=== PATIENT | female | born 1960 | race Two or more races ===

== ENCOUNTER 2016-08-24 23:00 | Inpatient (IN) | payer OTHER ==
[~2016-08-24] VITALS: Ht 152.4 cm; Wt 66.7 kg
[2016-08-25 00:56] LABS: Basophils # (auto) 0 uL; Basophils % (auto) 0.5 % (0.0-2.0); DEFINITIVE VIEW TRANSMISSION; Eosinophils # (auto) 1.1 uL; Eosinophils % (auto) 13.5 % (0.0-7.0); Hematocrit 38.7 % (36.0-46.0); Hemoglobin 12.6 g/dL (12.2-16.2); Lymphocytes # (auto) 2.1 uL; Mean Corpuscular Hemoglobin 27.8 pg (28.0-32.0); Mean Corpuscular Hgb Conc. 32.6 g/dL (32.0-36.0); Mean Corpuscular Volume 85.3 fL (80.0-100.0); Mean Platelet Volume 8.6 fL (7.4-10.4); Monocytes # (auto) 0.6 uL; Monocytes % (auto) 6.8 % (0.0-12.0); Neutrophils # (auto) 4.3 uL; Neutrophils % (auto) 53.2 % (37.0-80.0); Platelet Count (auto) 199 10^3/uL (140-450); Red Cell Distribution Width 15.3 % (11.6-16.0); White Blood Cell 8.1 10^3/uL (4.4-10.8)
[2016-08-25 01:17] LABS: Albumin 3.6 g/dL (3.4-5.0); Amylase 301 U/L (25-115); Anion Gap 8 (5-15); Aspartate Aminotransferase 14 U/L (15-37); BUN/Creatinine Ratio 11.3; Blood Urea Nitrogen 33 mg/dL (7-18); Calcium 9.1 mg/dL (8.5-10.1); Carbon Dioxide 25 mmol/L (21-32); Chloride 107 mmol/L (98-107); GFR African American 21 mL/min; GFR Non-African American 18 mL/min; Glucose 93 mg/dL (74-106); Potassium 4.8 mmol/L (3.5-5.1); Sodium 140 mmol/L (136-145)
[2016-08-25 01:22] LABS: Alkaline Phosphatase 124 U/L (45-117); Bilirubin, Total 0.4 mg/dL (0.2-1.0); Total Protein 7.5 g/dL (6.4-8.2)
[2016-08-25 05:45] LABS: INR 0.98 (0.9-1.15); Partial Thromboplastin Time 27.3 sec (22.64-33.71); Prothrombin Time 10.6 sec (9.37-12.3)
[2016-08-25] MEDS ORDERED: SODIUM CHLORIDE 0.9% 1,000 ML IVB ONE (07:30)
[2016-08-25] MEDS ORDERED: METOCLOPRAMIDE HCL 5MG/ml INJ 2ml VIAL IV ONE (07:30)
[2016-08-25] MEDS ORDERED: NALBUPHINE HCL 10 MG/1ml INJECTION IV ONE (07:30)
[2016-08-25 07:42] LABS: Urine Bilirubin Negative (Negative); Urine Blood Negative /uL (Negative); Urine Color Yellow (Yellow); Urine Glucose Normal (Normal); Urine Ketone Negative (Negative); Urine Nitrite Negative (Negative); Urine RBC <1 /hpf (0 - 4); Urine Squamous Epithelial Cell FEW /hpf (<5); Urine Urobilinogen Normal (Negative); Urine pH 5.5 (5.0-8.0)
[2016-08-25 08:00] LABS: Magnesium 2.6 mg/dL (1.6-2.6)
[2016-08-25] MEDS ORDERED: cloNIDine HCL 0.1 MG TAB PO PRN (09:30)
[2016-08-25] MEDS ORDERED: TEMAZEPAM 15 MG CAP PO PRN (09:45)
[2016-08-25] MEDS ORDERED: DOCUSATE SOD 100 MG CAP PO PRN (09:45)
[2016-08-25] MEDS ORDERED: NITROGLYCERIN 0.4 MG SL TAB SL PRN (09:45)
[2016-08-25] MEDS ORDERED: HYDROcodone-ACET 5/325MG TAB PO PRN (09:45)
[2016-08-25] MEDS ORDERED: MORPHINE SULF INJ 2 MG/ML SYRINGE 1ML IV PRN ×2 (09:45)
[2016-08-25] MEDS ORDERED: ACETAMINOPHEN 325 MG TAB PO PRN (09:45)
[2016-08-25] MEDS ORDERED: ONDANSETRON HCL 4 MG/2 ML VIAL IV PRN (09:45)
[2016-08-25] MEDS: SODIUM CHLORIDE 0.9% 1,000 ML IV SCH ×2 (10:12→17:49)
[2016-08-25] MEDS: ENALAPRIL MALEATE 10 MG TAB PO SCH ×2 (10:20→22:07)
[2016-08-25] MEDS: LABETALOL HCL 200 MG TAB PO SCH ×2 (10:20→22:06)
[2016-08-25] MEDS: LEVOTHYROXINE SODIUM 50 MCG TAB PO SCH (10:20)
[2016-08-25] MEDS: FAMOTIDINE 20 MG TAB PO SCH ×2 (10:20→22:05)
[2016-08-25] MEDS: NIFEdipine ER 30 MG TAB PO SCH (10:21)
[2016-08-25] MEDS: MULTIPLE VITAMIN TAB PO SCH (10:21)
[2016-08-25] MEDS ORDERED: PNEUMOCOCCAL VACC POLYS 25 MCG/0.5 ML VIAL IM ONE (12:30)
[2016-08-25] MEDS ORDERED: LOVA40TA72 PO (12:38)
[2016-08-25] MEDS ORDERED: ALBU18 IN (12:38)
[2016-08-25] MEDS ORDERED: BECL0.07 IN (12:38)
[2016-08-25] MEDS ORDERED: NIFE90TA30 PO (12:38)
[2016-08-25] MEDS ORDERED: LABE200T18 PO (12:38)
[2016-08-25] MEDS ORDERED: ENAL20TA70 PO (12:38)
[2016-08-25] MEDS ORDERED: LEVO25TA6 PO (12:38)
[2016-08-25 13:00] VITALS: BP 136/83
[2016-08-25 17:00] VITALS: BP 133/84
[2016-08-25] MEDS: ALBUTEROL SULF 2.5 MG/0.5ML(0.5%) NEB SOLN NEB SCH ×2 (18:50→23:19)
[2016-08-25 20:00] VITALS: BP 139/86
[2016-08-25 22:00] VITALS: BP 139/86
[2016-08-26] VITALS (8 sets, daily range): BP systolic 114–148; BP diastolic 71–93
[2016-08-26] MEDS: SODIUM CHLORIDE 0.9% 1,000 ML IV SCH ×2 (01:26→13:31)
[2016-08-26] MEDS: ALBUTEROL SULF 2.5 MG/0.5ML(0.5%) NEB SOLN NEB SCH ×4 (01:46→17:51)
[2016-08-26 06:00] LABS: Basophils # (auto) 0.1 uL; Basophils % (auto) 0.8 % (0.0-2.0); Eosinophils # (auto) 0.7 uL; Hematocrit 32.5 % (36.0-46.0); Lymphocytes # (auto) 1.8 uL; Lymphocytes % (auto) 26.8 % (10.0-50.0); Mean Corpuscular Hemoglobin 28.5 pg (28.0-32.0); Mean Corpuscular Hgb Conc. 33.8 g/dL (32.0-36.0); Mean Corpuscular Volume 84.3 fL (80.0-100.0); Mean Platelet Volume 8.8 fL (7.4-10.4); Monocytes # (auto) 0.5 uL; Monocytes % (auto) 8.1 % (0.0-12.0); Neutrophils # (auto) 3.6 uL; Neutrophils % (auto) 54.3 % (37.0-80.0); Platelet Count (auto) 168 10^3/uL (140-450); Red Cell Distribution Width 15.4 % (11.6-16.0); White Blood Cell 6.7 10^3/uL (4.4-10.8)
[2016-08-26] MEDS: LEVOTHYROXINE SODIUM 50 MCG TAB PO SCH (06:16)
[2016-08-26 06:19] LABS: Albumin 2.8 g/dL (3.4-5.0); BUN/Creatinine Ratio 10.6; Bilirubin, Total 0.5 mg/dL (0.2-1.0); Calcium 8.6 mg/dL (8.5-10.1); Magnesium 2.3 mg/dL (1.6-2.6); Phosphorus 3.2 mg/dL (2.5-4.90); Potassium 4.4 mmol/L (3.5-5.1); Total Protein 5.8 g/dL (6.4-8.2); Uric Acid 6.7 mg/dL (2.6-6.0)
[2016-08-26] MEDS: LABETALOL HCL 200 MG TAB PO SCH ×2 (10:06→22:53)
[2016-08-26] MEDS: NIFEdipine ER 30 MG TAB PO SCH (10:07)
[2016-08-26] MEDS: FAMOTIDINE 20 MG TAB PO SCH ×2 (10:07→22:53)
[2016-08-26] MEDS: MULTIPLE VITAMIN TAB PO SCH (10:07)
[2016-08-26] MEDS: ENALAPRIL MALEATE 10 MG TAB PO SCH ×2 (10:07→22:53)
[2016-08-26] MEDS: D5W/SOD CHL 0.45% 1,000 ML IV SCH (14:26)
[2016-08-27 05:00] VITALS: BP 127/83
[2016-08-27] MEDS: ALBUTEROL SULF 2.5 MG/0.5ML(0.5%) NEB SOLN NEB SCH ×3 (06:22→11:26)
[2016-08-27 06:24] LABS: Amylase 161 U/L (25-115)
[2016-08-27] MEDS ORDERED: LEVOTHYROXINE SODIUM 100 MCG TAB PO SCH (07:00)
[2016-08-27 08:15] VITALS: BP 130/56
[2016-08-27 09:00] VITALS: BP 130/56
[2016-08-27] MEDS: D5W/SOD CHL 0.45% 1,000 ML IV SCH (10:15)
[2016-08-27] MEDS: NIFEdipine ER 30 MG TAB PO SCH (10:20)
[2016-08-27] MEDS: MULTIPLE VITAMIN TAB PO SCH (10:21)
[2016-08-27] MEDS: LABETALOL HCL 200 MG TAB PO SCH (10:21)
[2016-08-27] MEDS: FAMOTIDINE 20 MG TAB PO SCH (10:21)
[2016-08-27] MEDS: ENALAPRIL MALEATE 10 MG TAB PO SCH (10:24)
[2016-08-27 14:25] VITALS: BP 130/56
== END 2016-08-27 15:40 | disposition home or self-care (01) | DRG 282 ==
LOC: ER 23:00 → TELE-CENTR 23:01
PROVIDERS: ADMIT Internal Medicine; ATTEND Internal Medicine Pulmonary Disease
DX: K85.00 Idiopathic acute pancreatitis without necrosis or infection (principal); N17.0 Acute kidney failure with tubular necrosis; J90 Pleural effusion, not elsewhere classified; N18.4 Chronic kidney disease, stage 4 (severe); I31.3 Pericardial effusion (noninflammatory); Q61.3 Polycystic kidney, unspecified; E86.0 Dehydration; E78.5 Hyperlipidemia, unspecified; E03.9 Hypothyroidism, unspecified; K76.9 Liver disease, unspecified; I12.9 Hypertensive chronic kidney disease with stage 1 through stage 4 chronic kidney disease, or unspecified chronic kidney disease; J45.909 Unspecified asthma, uncomplicated; K59.00 Constipation, unspecified; Z23 Encounter for immunization; Z82.49 Family history of ischemic heart disease and other diseases of the circulatory system
CPT/HCPCS: 36415; 71020; 74176; 80053; 80061; 81001; 82150; 83690; 83735; 84100; 84443; 84484; 84550; 85025; 85379; 85610; 85730; 86803; 87340; 93005; 93970; 94640; 94761; 96361; 96372; 96374; J2405

== ENCOUNTER 2019-01-15 12:42 | Inpatient (IN) | payer OTHER | END 2019-01-23 18:45 | disposition home or self-care (01) | LOC: WEST WING 01-22 09:49 → ER 12:42 → TELE 12:43 → TELE-WESTW 21:04 | PROC: 0F914ZZ Drainage of Right Lobe Liver, Percutaneous Endoscopic Approach (ICD-10-PCS; principal; 2019-01-21 13:55) | DX: K85.90 Acute pancreatitis without necrosis or infection, unspecified (principal); N18.6 End stage renal disease; Q61.3 Polycystic kidney, unspecified; K81.0 Acute cholecystitis; Z99.2 Dependence on renal dialysis; E03.9 Hypothyroidism, unspecified; E78.5 Hyperlipidemia, unspecified; E86.9 Volume depletion, unspecified; K52.9 Noninfective gastroenteritis and colitis, unspecified; D64.9 Anemia, unspecified; K82.9 Disease of gallbladder, unspecified ==

== ENCOUNTER 2019-09-22 12:57 | Inpatient (IN) | payer OTHER ==
[~2019-09-22] VITALS: Ht 157.5 cm; Wt 60.2 kg
[~2019-09-22 12:57] MED LIST: ALBU18 IN; BECL0.07 IN; CALC0.5C PO; FLUT50SP; FOLI1TAB6 PO; LABE100T4 PO; LEVO50TA7 PO; LOVA40TA72 PO; NIF10C PO; SODB50I PO
[2019-09-22] MEDS ORDERED: SODIUM CHLORIDE 0.9% 500 ML IVB ONE (13:59)
[2019-09-22] MEDS ORDERED: PANTOPRAZOLE 40 MG/10 ML VIAL INJ IV STA (13:59)
[2019-09-22] MEDS ORDERED: MORPHINE SULFATE 4 MG/ML SYR/VIAL IV ONE ×2 (14:00→17:00)
[2019-09-22] MEDS ORDERED: ONDANSETRON HCL 4 MG/2 ML VIAL IV ONE ×2 (14:00→17:00)
[2019-09-22 14:12] LABS: Urine Bacteria NONE SEEN /hpf (None Seen); Urine Blood TRACE /uL (Negative); Urine Specific Gravity 1.011 (1.001-1.035); Urine WBC 1 /hpf (0 - 5)
[2019-09-22 14:21] LABS: Basophils # (auto) 0 10 ^3/uL (0-0.2); Basophils % (auto) 0.5 % (0.0-2.0); Eosinophils # (auto) 0.3 10 ^3/uL (0-0.8); Hematocrit 37.2 % (36.0-46.0); Hemoglobin 12.7 g/dL (12.2-16.2); Lymphocytes # (auto) 1.3 10 ^3/uL (0.4-5.4); Lymphocytes % (auto) 18.1 % (10.0-50.0); Mean Corpuscular Hemoglobin 31.3 pg (28.0-32.0); Mean Corpuscular Hgb Conc. 34.1 g/dL (32.0-36.0); Mean Corpuscular Volume 91.7 fL (80.0-100.0); Monocytes # (auto) 0.6 10 ^3/uL (0-1.3); Monocytes % (auto) 8.7 % (0.0-12.0); Neutrophils # (auto) 4.9 10 ^3/uL (1.6-8.6); Neutrophils % (auto) 68.7 % (37.0-80.0); Platelet Count (auto) 101 10^3/uL (140-450); Red Blood Cells 4.06 10^6/uL (4.0-5.20); Red Cell Distribution Width 14.8 % (11.8-14.3); White Blood Cell 7.2 10^3/uL (4.4-10.8)
[2019-09-22 14:38] LABS: Albumin 3.5 g/dL (3.4-5.0); Calcium 9.3 mg/dL (8.5-10.1); Potassium 3.8 mmol/L (3.5-5.1)
[2019-09-22 14:46] LABS: BUN/Creatinine Ratio 6.8; Bilirubin, Total 0.7 mg/dL (0.2-1.0); Total Protein 7.1 g/dL (6.4-8.2)
[2019-09-22] MEDS ORDERED: ONDANSETRON HCL 4 MG/2 ML VIAL IV PRN (17:30)
[2019-09-22] MEDS ORDERED: MORPHINE SULF INJ 2 MG/ML SYRINGE 1ML IV PRN ×2 (17:30)
[2019-09-22] MEDS ORDERED: NITROGLYCERIN 0.4 MG SL TAB SL PRN (17:30)
[2019-09-22 18:16] LABS: Cholesterol 216 mg/dL (< 200)
[2019-09-22 18:18] LABS: HDL Cholesterol 80 mg/dL (40-59); LDL Cholesterol 126 mg/dL (< 100); Triglycerides 84 mg/dL (< 150)
[2019-09-22] MEDS: SODIUM CHLORIDE 0.9% 1,000 ML IV SCH (18:21)
[2019-09-22] MEDS ORDERED: PROMETHAZINE HCL 25 MG/ML 1ML IV PRN (18:30)
[2019-09-22] MEDS: NIFEdipine ER 30 MG TAB PO SCH (18:37)
--- NOTE | 2019-09-22 20:40 | NUR ---
Telemetry admit from [facility]OHAN[facility] ALLENMARYJANE admitted to Telemetry unit after SBAR received. Patient oriented to Ramya Martinez RN primary RN, unit, room, bed, and unit policies regarding patient care and visiting hours. Patient now on continuous telemetry monitoring, tele box #[id number] . Patient placed on bedside oxygen at 2 liters, weighed by bedscale and encouraged to call if they need something. All questions and concerns addressed, patient verbalized understanding. Bed is in lowest locked position with bed rails up x 2 and call light is within reach of the patient.
[2019-09-22] MEDS: ATORVASTATIN 20 MG TAB PO SCH (21:36)
[2019-09-22] MEDS ORDERED: FERR1TAB17 PO (22:24)
[2019-09-22 22:44] VITALS: BP 163/75
[2019-09-22 23:20] VITALS: BP 135/74
[2019-09-23] VITALS (7 sets, daily range): BP systolic 127–160; BP diastolic 65–82
--- NOTE | 2019-09-23 00:09 | NUR ---
[facility] Hospitalist: [facility] hospitalist due to patient requesting a different medication for pain. Patient states that she does not like the way morphine makes her feel. Waiting for call back.
--- NOTE | 2019-09-23 00:36 | NUR ---
Hospitalist called back: Notified hospitalist Luis A that patient is requesting something else for pain due to patient stating she does not like the way morphine makes her feel. New orders received. To place orders.
[2019-09-23] MEDS ORDERED: KETOROLAC TROMETH 30 MG/ML 1ML VIAL IV ONE (00:45)
[2019-09-23 05:42] LABS: Basophils # (auto) 0.1 10 ^3/uL (0-0.2); Basophils % (auto) 0.8 % (0.0-2.0); Eosinophils # (auto) 0.3 10 ^3/uL (0-0.8); Eosinophils % (auto) 4.6 % (0.0-7.0); Hematocrit 33.7 % (36.0-46.0); Hemoglobin 11.4 g/dL (12.2-16.2); Lymphocytes # (auto) 1.2 10 ^3/uL (0.4-5.4); Lymphocytes % (auto) 18.9 % (10.0-50.0); Mean Corpuscular Hemoglobin 31.5 pg (28.0-32.0); Mean Corpuscular Hgb Conc. 33.7 g/dL (32.0-36.0); Mean Corpuscular Volume 93.5 fL (80.0-100.0); Monocytes # (auto) 0.6 10 ^3/uL (0-1.3); Monocytes % (auto) 9.8 % (0.0-12.0); Neutrophils # (auto) 4.2 10 ^3/uL (1.6-8.6); Neutrophils % (auto) 65.9 % (37.0-80.0); Platelet Count (auto) 79 10^3/uL (140-450); Red Blood Cells 3.61 10^6/uL (4.0-5.20); Red Cell Distribution Width 15.3 % (11.8-14.3); White Blood Cell 6.3 10^3/uL (4.4-10.8)
[2019-09-23 05:57] LABS: Calcium 8.3 mg/dL (8.5-10.1); Potassium 3.9 mmol/L (3.5-5.1)
[2019-09-23 06:06] LABS: BUN/Creatinine Ratio 7.8; Bilirubin, Total 0.6 mg/dL (0.2-1.0); Total Protein 6.2 g/dL (6.4-8.2)
[2019-09-23] MEDS ORDERED: LEVOTHYROXINE SODIUM 50 MCG TAB PO SCH (07:00)
[2019-09-23] MEDS: SODIUM CHLORIDE 0.9% 1,000 ML IV SCH (09:26)
[2019-09-23] MEDS ORDERED: SODIUM CHL 0.9% 1000 ML BAG XX ONE (09:45)
[2019-09-23 11:59] LABS: Blood Alcohol < 3.0 mg/dL (0-5); Magnesium 2.4 mg/dL (1.6-2.6); Phosphorus 6.6 mg/dL (2.5-4.90)
[2019-09-23] MEDS: LACTATED RINGER'S 1,000 ML IV SCH (14:22)
[2019-09-23] MEDS: NIFEdipine ER 30 MG TAB PO SCH (17:40)
--- NOTE | 2019-09-23 19:20 | NUR ---
Opening note Assumed care of patient. Patient alert and orientated x4. No SOB or distress noted at this time. Bed locked in lowest position and side rails up x2. POC reviewed. All questions answered. Call light within reach. Will continue to monitor.
--- NOTE | 2019-09-23 19:30 | NUR ---
Dialysis Dialysis Nurse at bedside. Will continue to monitor.
--- NOTE | 2019-09-23 21:50 | NUR ---
Dialysis done Dialysis nurse removed 1 Liter. states patient tolerated well. BP 136/75 HR 68. No distress or SOB noted on patient. Will continue to monitor.
[2019-09-23] MEDS: ATORVASTATIN 20 MG TAB PO SCH (22:20)
[2019-09-24] VITALS (8 sets, daily range): BP systolic 111–160; BP diastolic 67–81
[2019-09-24] MEDS: LACTATED RINGER'S 1,000 ML IV SCH ×2 (03:50→17:21)
[2019-09-24 05:53] LABS: Basophils # (auto) 0 10 ^3/uL (0-0.2); Basophils % (auto) 0.8 % (0.0-2.0); Eosinophils # (auto) 0.4 10 ^3/uL (0-0.8); Eosinophils % (auto) 6.1 % (0.0-7.0); Hematocrit 32.7 % (36.0-46.0); Lymphocytes # (auto) 1.2 10 ^3/uL (0.4-5.4); Lymphocytes % (auto) 19.3 % (10.0-50.0); Mean Corpuscular Hgb Conc. 33.7 g/dL (32.0-36.0); Mean Corpuscular Volume 92.1 fL (80.0-100.0); Monocytes # (auto) 0.6 10 ^3/uL (0-1.3); Monocytes % (auto) 9.2 % (0.0-12.0); Neutrophils % (auto) 64.6 % (37.0-80.0); Nucleated Red Blood Cells % 0.2 %; Platelet Count (auto) 76 10^3/uL (140-450); Red Blood Cells 3.55 10^6/uL (4.0-5.20); Red Cell Distribution Width 14.8 % (11.8-14.3); White Blood Cell 6.1 10^3/uL (4.4-10.8)
[2019-09-24] MEDS: LEVOTHYROXINE SODIUM 88 MCG TAB PO SCH (05:58)
[2019-09-24 06:13] LABS: Potassium 3.7 mmol/L (3.5-5.1)
[2019-09-24 06:22] LABS: Albumin 2.7 g/dL (3.4-5.0); BUN/Creatinine Ratio 6.6; Bilirubin, Total 0.5 mg/dL (0.2-1.0); Total Protein 5.6 g/dL (6.4-8.2)
[2019-09-24] MEDS ORDERED: ACETAMINOPHEN 325 MG TAB PO PRN (10:30)
[2019-09-24] MEDS: MEROPENEM 500MG IVPB 50 ML IV SCH ×2 (11:16→20:59)
[2019-09-24] MEDS: NIFEdipine ER 30 MG TAB PO SCH (17:38)
--- NOTE | 2019-09-24 19:10 | NUR ---
Opening note Assumed care of patient. Patient alert and orientated x4. No SOB or distress noted. Bed locked in lowest position. POC reviewed. All questions answered. Side rails up x2. Call light within reach. Will continue to monitor.
[2019-09-24] MEDS: ATORVASTATIN 20 MG TAB PO SCH (20:59)
[2019-09-24] MEDS: LABETALOL HCL 5 MG/ML 4ML SYRINGE IV PRN (21:32)
[2019-09-25] MEDS: LABETALOL HCL 5 MG/ML 4ML SYRINGE IV PRN ×2 (04:48→06:51)
[2019-09-25 04:52] VITALS: BP 153/72
[2019-09-25] MEDS: LACTATED RINGER'S 1,000 ML IV SCH (04:57)
[2019-09-25] MEDS: LEVOTHYROXINE SODIUM 88 MCG TAB PO SCH (06:03)
[2019-09-25 06:21] LABS: Potassium 3.8 mmol/L (3.5-5.1)
[2019-09-25 06:23] LABS: % Iron Saturation 21.3 % (15-50)
[2019-09-25 06:36] LABS: BUN/Creatinine Ratio 6.5; Calcium 8.8 mg/dL (8.5-10.1)
[2019-09-25] MEDS ORDERED: SODIUM CHL 0.9% 1000 ML BAG XX ONE (07:00)
--- NOTE | 2019-09-25 07:04 | NUR ---
OPENING SHIFT NOTE Assumed care of patient from data warehouse administrator RN. Patient is alert and oriented x4, no signs of distress noted, patient denies pain. She was updated on the plan of care and verbalized understanding. Patient is receiving oxygen at 2L via nasal cannula, saturation is 95%. Bed is locked, in the lowest position side rails up x2 and call light is in reach. Patient was encouraged to call for assistance as needed.
[2019-09-25 09:00] VITALS: BP 138/70
[2019-09-25] MEDS: MEROPENEM 500MG IVPB 50 ML IV SCH (09:48)
--- NOTE | 2019-09-25 10:50 | NUR ---
DIALYSIS NURSE AT BEDSIDE
--- NOTE | 2019-09-25 10:51 | NUR ---
LÓPEZ AT BEDSIDE Updated on patient status, plan of care reviewed with patient and she verbalized understanding. New orders received to advance diet. Per MD patient will be discharged today.
[2019-09-25 13:00] VITALS: BP 124/74
[2019-09-25] MEDS ORDERED: LEVO88TA4 PO (14:11)
--- NOTE | 2019-09-25 14:25 | NUR ---
DIALYSIS COMPLETE PER SYSTEM SUPPORT ANALYST 1.5L REMOVED BP 125/78 HR 81
[2019-09-25 16:49] VITALS: BP 151/82
[2019-09-25 17:00] VITALS: BP 131/66
--- NOTE | 2019-09-25 18:13 | NUR ---
DISCHARGE Discharge instructions given as ordered. Encourage to follow up with PMD as instructed. All questions and concerns addressed. Patient verbalized understanding. Medication reconciliation form completed and copy given to patient. Home medications held in Pharmacy returned to patient, IV removed with catheter intact, pressure dressing applied, Telemetry unit returned to ICU. Patient taken to vehicle via wheelchair with all personal belongings, accompanied by staff. No distress noted at time of departure.
[2019-09-26] MEDS ORDERED: PANTOPRAZOLE 40 MG TAB PO SCH (10:00)
== END 2019-09-25 18:13 | disposition home or self-care (01) | DRG 282 ==
LOC: ER 12:57 → TELE 12:58 → TELE-WESTW 20:41
PROVIDERS: ADMIT Nurse Practitioner Acute Care; ATTEND Internal Medicine
PROC: 5A1D70Z Performance of Urinary Filtration, Intermittent, Less than 6 Hours Per Day (ICD-10-PCS; principal; 2019-09-23)
DX: K85.90 Acute pancreatitis without necrosis or infection, unspecified (principal); E11.22 Type 2 diabetes mellitus with diabetic chronic kidney disease; I12.0 Hypertensive chronic kidney disease with stage 5 chronic kidney disease or end stage renal disease; K76.89 Other specified diseases of liver; N18.6 End stage renal disease; Q61.3 Polycystic kidney, unspecified; K86.2 Cyst of pancreas; D63.8 Anemia in other chronic diseases classified elsewhere; J45.909 Unspecified asthma, uncomplicated; K86.1 Other chronic pancreatitis; E03.9 Hypothyroidism, unspecified; K86.9 Disease of pancreas, unspecified; E78.5 Hyperlipidemia, unspecified; Z79.899 Other long term (current) drug therapy; Z99.2 Dependence on renal dialysis; Z82.49 Family history of ischemic heart disease and other diseases of the circulatory system
CPT/HCPCS: 36415; 74176; 76705; 80048; 80053; 80061; 80320; 81001; 83540; 83550; 83690; 83735; 84100; 84439; 84443; 85025; 86301; 90935; 93005; 93306; C9113; G0378; J1885; J2185; J2405; J3490

== ENCOUNTER 2020-07-11 18:14 | Emergency (ER) | payer OTHER ==
[~2020-07-11 18:14] MED LIST changes: -LABE100T4 PO; -LEVO50TA7 PO; +LEVO88TA4 PO; -SODB50I PO
[2020-07-11] MEDS ORDERED: MORPHINE SULFATE 4 MG/ML SYR/VIAL IV ONE (18:45)
[2020-07-11] MEDS ORDERED: ONDANSETRON HCL 4 MG/2 ML VIAL IV ONE (18:45)
[2020-07-11] MEDS ORDERED: HYDROcodone-ACET 10/325MG TAB PO ONE (19:45)
[2020-07-11 19:56] LABS: Basophils # (auto) 0 10 ^3/uL (0-0.2); Basophils % (auto) 0.2 % (0.0-2.0); Eosinophils # (auto) 0.1 10 ^3/uL (0-0.8); Eosinophils % (auto) 1.3 % (0.0-7.0); Hemoglobin 13.8 g/dL (12.2-16.2); Lymphocytes # (auto) 0.9 10 ^3/uL (0.4-5.4); Lymphocytes % (auto) 11.2 % (10.0-50.0); Mean Corpuscular Hgb Conc. 33.7 g/dL (32.0-36.0); Monocytes # (auto) 0.5 10 ^3/uL (0-1.3); Monocytes % (auto) 6.4 % (0.0-12.0); Neutrophils # (auto) 6.2 10 ^3/uL (1.6-8.6); Neutrophils % (auto) 80.9 % (37.0-80.0); Platelet Count (auto) 116 10^3/uL (140-450); Red Blood Cells 4.45 10^6/uL (4.0-5.20); White Blood Cell 7.7 10^3/uL (4.4-10.8)
[2020-07-11 20:12] LABS: Albumin 3.7 g/dL (3.4-5.0); Calcium 9.2 mg/dL (8.5-10.1); Potassium 4.2 mmol/L (3.5-5.1)
[2020-07-11 20:16] LABS: BUN/Creatinine Ratio 6.9; Bilirubin, Total 0.6 mg/dL (0.2-1.0); Total Protein 7.8 g/dL (6.4-8.2)
[2020-07-11 21:04] VITALS: BP 152/80
== END 2020-07-11 21:06 | disposition home or self-care (01) ==
LOC: ER 18:14
DX: I12.0 Hypertensive chronic kidney disease with stage 5 chronic kidney disease or end stage renal disease (principal); N18.6 End stage renal disease; R10.13 Epigastric pain; R11.2 Nausea with vomiting, unspecified; R19.7 Diarrhea, unspecified; Z79.899 Other long term (current) drug therapy; Z99.2 Dependence on renal dialysis
CPT/HCPCS: 36415; 76705; 80053; 83690; 85025; 93005; 96374; 99285; J2405

== ENCOUNTER 2020-07-13 16:41 | Inpatient (IN) | payer OTHER ==
[~2020-07-13] VITALS: Ht 162.6 cm; Wt 62.0 kg
[2020-07-13] MEDS ORDERED: ONDANSETRON HCL 4 MG/2 ML VIAL IV ONE (17:45)
[2020-07-13] MEDS ORDERED: SODIUM CHLORIDE 0.9% 1,000 ML IVB ONE (17:45)
[2020-07-13] MEDS ORDERED: MORPHINE SULFATE 4 MG/ML SYR/VIAL IV ONE (17:45)
[2020-07-13 17:56] LABS: Basophils # (auto) 0 10 ^3/uL (0-0.2); Basophils % (auto) 0.3 % (0.0-2.0); Eosinophils # (auto) 0.1 10 ^3/uL (0-0.8); Eosinophils % (auto) 1.2 % (0.0-7.0); Hematocrit 37.5 % (36.0-46.0); Hemoglobin 12.8 g/dL (12.2-16.2); Lymphocytes # (auto) 0.7 10 ^3/uL (0.4-5.4); Lymphocytes % (auto) 7.1 % (10.0-50.0); Mean Corpuscular Hemoglobin 31.3 pg (28.0-32.0); Mean Corpuscular Hgb Conc. 34.2 g/dL (32.0-36.0); Mean Corpuscular Volume 91.6 fL (80.0-100.0); Monocytes # (auto) 0.8 10 ^3/uL (0-1.3); Neutrophils # (auto) 7.6 10 ^3/uL (1.6-8.6); Neutrophils % (auto) 82.4 % (37.0-80.0); Red Cell Distribution Width 15.6 % (11.8-14.3); White Blood Cell 9.3 10^3/uL (4.4-10.8)
[2020-07-13 18:08] LABS: Alanine Aminotransferase 21 U/L (13-56); Albumin 3.6 g/dL (3.4-5.0); Anion Gap 9 (5-15); Blood Urea Nitrogen 56 mg/dL (7-18); Calcium 8.9 mg/dL (8.5-10.1); Carbon Dioxide 19 mmol/L (21-32); Chloride 108 mmol/L (98-107); Glucose 116 mg/dL (74-106); Sodium 136 mmol/L (136-145)
[2020-07-13 18:10] LABS: Urine Amorphous Crystal FEW /hpf (None Seen); Urine Bacteria FEW /hpf (None Seen); Urine Blood 1+ /uL (Negative); Urine Specific Gravity 1.013 (1.001-1.035); Urine WBC 3 /hpf (0 - 5)
[2020-07-13 18:12] LABS: Alkaline Phosphatase 161 U/L (45-117); Aspartate Aminotransferase 23 U/L (15-37); Bilirubin, Total 0.5 mg/dL (0.2-1.0); GFR African American 9 mL/min; GFR Non-African American 7 mL/min; Total Protein 7.6 g/dL (6.4-8.2)
[2020-07-13 18:25] LABS: Magnesium 2.4 mg/dL (1.6-2.6)
[2020-07-13 18:29] LABS: INR 1.01 (0.9-1.15); Partial Thromboplastin Time 29.2 sec (23.0-31.2)
[2020-07-13] MEDS ORDERED: ACETAMINOPHEN 325 MG TAB PO PRN (22:30)
[2020-07-13] MEDS: SODIUM CHLORIDE 0.9% 1,000 ML IV SCH (22:53)
[2020-07-14] VITALS (10 sets, daily range): BP systolic 108–170; BP diastolic 74–86
[2020-07-14] MEDS: MORPHINE SULFATE 4 MG/ML SYR/VIAL IV PRN ×2 (01:41→08:55)
[2020-07-14] MEDS: ONDANSETRON HCL 4 MG/2 ML VIAL IV PRN (01:43)
[2020-07-14] MEDS ORDERED: ONDA-144 PO (03:12)
[2020-07-14] MEDS ORDERED: LEVO50TA7 PO (03:12)
[2020-07-14] MEDS ORDERED: FERR1TAB17 PO (03:12)
[2020-07-14] MEDS: LEVOTHYROXINE SODIUM 88 MCG TAB PO SCH (06:47)
[2020-07-14 06:49] LABS: Basophils # (auto) 0 10 ^3/uL (0-0.2); Basophils % (auto) 0.1 % (0.0-2.0); Eosinophils # (auto) 0.1 10 ^3/uL (0-0.8); Eosinophils % (auto) 1.3 % (0.0-7.0); Hematocrit 31.8 % (36.0-46.0); Hemoglobin 10.8 g/dL (12.2-16.2); Lymphocytes # (auto) 0.7 10 ^3/uL (0.4-5.4); Lymphocytes % (auto) 10.7 % (10.0-50.0); Mean Corpuscular Hemoglobin 30.9 pg (28.0-32.0); Mean Corpuscular Volume 90.7 fL (80.0-100.0); Monocytes # (auto) 0.6 10 ^3/uL (0-1.3); Monocytes % (auto) 9.7 % (0.0-12.0); Neutrophils # (auto) 5.2 10 ^3/uL (1.6-8.6); Neutrophils % (auto) 78.2 % (37.0-80.0); Red Blood Cells 3.51 10^6/uL (4.0-5.20); Red Cell Distribution Width 15.7 % (11.8-14.3); White Blood Cell 6.7 10^3/uL (4.4-10.8)
[2020-07-14 07:07] LABS: Albumin 2.8 g/dL (3.4-5.0); Calcium 8.4 mg/dL (8.5-10.1); Potassium 4.8 mmol/L (3.5-5.1)
[2020-07-14 07:19] LABS: BUN/Creatinine Ratio 9.4; Bilirubin, Total 0.7 mg/dL (0.2-1.0); Total Protein 6.1 g/dL (6.4-8.2)
[2020-07-14] MEDS: cefTRIAXone 1GM/50ML D5W 50 ML IV SCH (08:26)
[2020-07-14] MEDS: NIFEdipine ER 30 MG TAB PO SCH (08:26)
[2020-07-14] MEDS: MORPHINE SULFATE INJECTION 2 MG/ML SYRG IV PRN (13:19)
[2020-07-14] MEDS ORDERED: ALBUTEROL SULF 2.5 MG/0.5ML(0.5%) NEB SOLN NEB PRN (15:00)
[2020-07-14] MEDS ORDERED: IPRATROPIUM BROM 0.5 MG/2.5ML INH SOL NEB PRN (15:00)
[2020-07-14] MEDS: HYDROcodone-ACET 5/325MG TAB PO PRN ×2 (15:28→22:05)
[2020-07-14] MEDS: SODIUM CHLORIDE 0.9% 1,000 ML IV SCH (17:24)
[2020-07-14] MEDS: methylPREDNISolone SOD SUCC 40 MG/ML VL IV SCH (17:24)
[2020-07-14] MEDS: ATORVASTATIN 20 MG TAB PO SCH (21:57)
[2020-07-15 05:00] VITALS: BP 132/74
[2020-07-15] MEDS: LEVOTHYROXINE SODIUM 88 MCG TAB PO SCH (06:39)
[2020-07-15] MEDS: HYDROcodone-ACET 5/325MG TAB PO PRN (06:40)
[2020-07-15 07:00] LABS: Basophils # (auto) 0 10 ^3/uL (0-0.2); Basophils % (auto) 0.1 % (0.0-2.0); Eosinophils # (auto) 0 10 ^3/uL (0-0.8); Hematocrit 33.5 % (36.0-46.0); Hemoglobin 11.6 g/dL (12.2-16.2); Lymphocytes # (auto) 0.4 10 ^3/uL (0.4-5.4); Lymphocytes % (auto) 6.3 % (10.0-50.0); Mean Corpuscular Hemoglobin 31.7 pg (28.0-32.0); Mean Corpuscular Hgb Conc. 34.6 g/dL (32.0-36.0); Mean Corpuscular Volume 91.7 fL (80.0-100.0); Monocytes # (auto) 0.2 10 ^3/uL (0-1.3); Monocytes % (auto) 4.4 % (0.0-12.0); Neutrophils % (auto) 89.2 % (37.0-80.0); Nucleated Red Blood Cells % 0.1 %; Red Blood Cells 3.65 10^6/uL (4.0-5.20); Red Cell Distribution Width 15.9 % (11.8-14.3); White Blood Cell 5.6 10^3/uL (4.4-10.8)
[2020-07-15] MEDS ORDERED: SODIUM CHL 0.9% 1000 ML BAG XX ONE (07:00)
[2020-07-15 07:33] LABS: Calcium 8.2 mg/dL (8.5-10.1)
[2020-07-15 08:13] LABS: Potassium 5.8 mmol/L (3.5-5.1)
[2020-07-15] MEDS: cefTRIAXone 1GM/50ML D5W 50 ML IV SCH (08:30)
[2020-07-15 09:00] VITALS: BP_SYST 130; BP_SYST 141; BP_DIAS 80; BP_DIAS 88
[2020-07-15] MEDS: methylPREDNISolone SOD SUCC 40 MG/ML VL IV SCH (09:30)
[2020-07-15] MEDS: NIFEdipine ER 30 MG TAB PO SCH (09:42)
[2020-07-15 13:00] VITALS: BP 116/80
[2020-07-15] MEDS: SODIUM CHLORIDE 0.9% 1,000 ML IV SCH (16:17)
[2020-07-15 17:00] VITALS: BP 147/82
[2020-07-15] MEDS ORDERED: EPOETIN ALFA-EPBX 4,000 UNIT/ML VIAL SC ONE (21:00)
[2020-07-15] MEDS: ATORVASTATIN 20 MG TAB PO SCH (21:50)
[2020-07-15 22:00] VITALS: BP 146/76
[2020-07-16 05:19] VITALS: BP 138/71
[2020-07-16] MEDS: LEVOTHYROXINE SODIUM 88 MCG TAB PO SCH (06:15)
[2020-07-16 06:22] LABS: Calcium 8.1 mg/dL (8.5-10.1)
[2020-07-16 06:56] LABS: BUN/Creatinine Ratio 9.4
[2020-07-16 06:57] LABS: Potassium 3.8 mmol/L (3.5-5.1)
[2020-07-16 08:15] VITALS: BP 151/80
[2020-07-16 09:00] VITALS: BP 154/78
[2020-07-16] MEDS: HYDROcodone-ACET 5/325MG TAB PO PRN (09:24)
[2020-07-16] MEDS: NIFEdipine ER 30 MG TAB PO SCH (11:17)
[2020-07-16] MEDS: cefTRIAXone 1GM/50ML D5W 50 ML IV SCH (11:17)
[2020-07-16] MEDS: methylPREDNISolone SOD SUCC 40 MG/ML VL IV SCH (11:17)
[2020-07-16 13:00] VITALS: BP 158/80
[2020-07-16 17:00] VITALS: BP 147/77
[2020-07-16] MEDS: MORPHINE SULFATE INJECTION 2 MG/ML SYRG IV PRN (17:59)
[2020-07-16] MEDS: ATORVASTATIN 20 MG TAB PO SCH (21:06)
[2020-07-16 22:01] VITALS: BP 148/62
[2020-07-17 04:52] VITALS: BP 149/74
[2020-07-17] MEDS: LEVOTHYROXINE SODIUM 88 MCG TAB PO SCH (06:14)
[2020-07-17] MEDS: MORPHINE SULFATE INJECTION 2 MG/ML SYRG IV PRN ×3 (06:15→19:54)
[2020-07-17 08:00] VITALS: BP 169/90
[2020-07-17 08:15] VITALS: BP 169/90
[2020-07-17] MEDS: cefTRIAXone 1GM/50ML D5W 50 ML IV SCH (09:13)
[2020-07-17] MEDS ORDERED: SODIUM CHL 0.9% 1000 ML BAG XX ONE (09:15)
[2020-07-17] MEDS: NIFEdipine ER 30 MG TAB PO SCH (10:49)
[2020-07-17 12:00] VITALS: BP 171/87
[2020-07-17 16:00] VITALS: BP 132/83
[2020-07-17] MEDS: ONDANSETRON HCL 4 MG/2 ML VIAL IV PRN (16:13)
[2020-07-17] MEDS: ATORVASTATIN 20 MG TAB PO SCH (19:53)
[2020-07-17 23:18] VITALS: BP 132/76
[2020-07-18] VITALS (7 sets, daily range): BP systolic 132–155; BP diastolic 76–89
[2020-07-18] MEDS: MORPHINE SULFATE INJECTION 2 MG/ML SYRG IV PRN ×3 (03:48→20:32)
[2020-07-18] MEDS: LEVOTHYROXINE SODIUM 88 MCG TAB PO SCH (05:41)
[2020-07-18 06:20] LABS: Basophils # (auto) 0 10 ^3/uL (0-0.2); Basophils % (auto) 0.4 % (0.0-2.0); Eosinophils # (auto) 0.1 10 ^3/uL (0-0.8); Eosinophils % (auto) 1.5 % (0.0-7.0); Hematocrit 32.2 % (36.0-46.0); Hemoglobin 11.1 g/dL (12.2-16.2); Lymphocytes # (auto) 0.9 10 ^3/uL (0.4-5.4); Lymphocytes % (auto) 15.3 % (10.0-50.0); Mean Corpuscular Hemoglobin 31.1 pg (28.0-32.0); Mean Corpuscular Hgb Conc. 34.6 g/dL (32.0-36.0); Monocytes # (auto) 0.7 10 ^3/uL (0-1.3); Monocytes % (auto) 11.7 % (0.0-12.0); Neutrophils # (auto) 4.2 10 ^3/uL (1.6-8.6); Neutrophils % (auto) 71.1 % (37.0-80.0); Nucleated Red Blood Cells % 0.1 %; Red Blood Cells 3.58 10^6/uL (4.0-5.20); Red Cell Distribution Width 15.6 % (11.8-14.3); White Blood Cell 5.9 10^3/uL (4.4-10.8)
[2020-07-18] MEDS: cefTRIAXone 1GM/50ML D5W 50 ML IV SCH (09:30)
[2020-07-18] MEDS: NIFEdipine ER 30 MG TAB PO SCH (09:48)
[2020-07-18 13:00] LABS: BUN/Creatinine Ratio 8.3; Calcium 8.6 mg/dL (8.5-10.1); Potassium 3.4 mmol/L (3.5-5.1)
[2020-07-18] MEDS: ATORVASTATIN 20 MG TAB PO SCH (20:31)
[2020-07-19 05:00] VITALS: BP 155/82
[2020-07-19] MEDS: LEVOTHYROXINE SODIUM 88 MCG TAB PO SCH (06:03)
[2020-07-19 06:30] LABS: Potassium 3.6 mmol/L (3.5-5.1)
[2020-07-19 06:36] LABS: BUN/Creatinine Ratio 7.5; Calcium 9.1 mg/dL (8.5-10.1)
[2020-07-19 08:17] VITALS: BP 151/83
[2020-07-19 08:30] VITALS: BP 151/83
[2020-07-19] MEDS: MORPHINE SULFATE INJECTION 2 MG/ML SYRG IV PRN (08:56)
[2020-07-19 12:30] VITALS: BP 128/80
[2020-07-19] MEDS ORDERED: COLCHICINE 0.6 MG CAP PO ONE (12:30)
[2020-07-19] MEDS ORDERED: PANTOPRAZOLE 40 MG TAB PO ONE (12:30)
[2020-07-19] MEDS ORDERED: NAPROXEN 500 MG TAB PO ONE (12:30)
[2020-07-19] MEDS ORDERED: cefTRIAXone 1GM/50ML D5W 50 ML IV ONE (13:00)
[2020-07-19] MEDS: NIFEdipine ER 30 MG TAB PO SCH (14:39)
[2020-07-19 16:43] VITALS: BP 106/68
[2020-07-19] MEDS: ATORVASTATIN 20 MG TAB PO SCH (21:51)
[2020-07-19] MEDS: NAPROXEN 500 MG TAB PO SCH (21:51)
[2020-07-19 21:55] VITALS: BP 122/76
[2020-07-19] MEDS ORDERED: COLCHICINE 0.6 MG CAP PO SCH (22:00)
[2020-07-20 05:16] VITALS: BP 107/65
[2020-07-20 06:07] LABS: Amylase 235 U/L (25-115); Lipase 640 U/L (73-393)
[2020-07-20] MEDS: LEVOTHYROXINE SODIUM 88 MCG TAB PO SCH (06:18)
[2020-07-20 08:00] VITALS: BP 118/67
[2020-07-20 09:00] VITALS: BP 118/67
[2020-07-20] MEDS ORDERED: cefTRIAXone 1GM/50ML D5W 50 ML IV SCH (09:00)
[2020-07-20] MEDS: NAPROXEN 500 MG TAB PO SCH (09:58)
[2020-07-20] MEDS: NIFEdipine ER 30 MG TAB PO SCH (09:58)
[2020-07-20] MEDS ORDERED: ENOXAPARIN SOD 30 MG/0.3 ML SYRINGE SC SCH (10:00)
[2020-07-20] MEDS ORDERED: PANTOPRAZOLE 40 MG TAB PO SCH (10:00)
[2020-07-20 13:00] VITALS: BP 137/72
[2020-07-20] MEDS ORDERED: CEPH-322 PO (14:21)
[2020-07-20] MEDS ORDERED: NAP500T PO (14:21)
[2020-07-20 15:12] VITALS: BP 132/72
[2020-07-20 16:46] VITALS: BP 120/67
== END 2020-07-20 18:02 | disposition home or self-care (01) | DRG 282 ==
LOC: ER 16:41 → OVERFLOW 22:33 → EAST 07-14 00:43 → WEST WING 07-14 13:22
PROVIDERS: ADMIT Nurse Practitioner; ATTEND Internal Medicine
PROC: 5A1D70Z Performance of Urinary Filtration, Intermittent, Less than 6 Hours Per Day (ICD-10-PCS; 2020-07-15)
PROC: 5A1D70Z Performance of Urinary Filtration, Intermittent, Less than 6 Hours Per Day (ICD-10-PCS; principal; 2020-07-17)
PROC: 5A1D70Z Performance of Urinary Filtration, Intermittent, Less than 6 Hours Per Day (ICD-10-PCS; 2020-07-19)
DX: K85.90 Acute pancreatitis without necrosis or infection, unspecified (principal); Q61.2 Polycystic kidney, adult type; N18.6 End stage renal disease; L03.116 Cellulitis of left lower limb; E87.5 Hyperkalemia; L03.115 Cellulitis of right lower limb; Q44.6 Cystic disease of liver; I12.0 Hypertensive chronic kidney disease with stage 5 chronic kidney disease or end stage renal disease; Z20.822 Contact with and (suspected) exposure to COVID-19; E78.5 Hyperlipidemia, unspecified; Z99.2 Dependence on renal dialysis; K86.1 Other chronic pancreatitis; K86.2 Cyst of pancreas; N39.0 Urinary tract infection, site not specified; D63.1 Anemia in chronic kidney disease; E03.9 Hypothyroidism, unspecified; J40 Bronchitis, not specified as acute or chronic; R74.8 Abnormal levels of other serum enzymes; K21.9 Gastro-esophageal reflux disease without esophagitis; Z79.899 Other long term (current) drug therapy
CPT/HCPCS: 36415; 73600; 73630; 74176; 76705; 80048; 80053; 81001; 82150; 82962; 83605; 83690; 83735; 84443; 84484; 84550; 85025; 85610; 85730; 87040; 87086; 87426; 90935; 93005; 93926; 96361; 96374; 96375; 97116; 97530; G0378; J0696; J2405

== ENCOUNTER 2021-08-02 15:40 | Inpatient (IN) | payer MEDICAID, OTHER ==
[~2021-08-02] VITALS: Ht 160 cm; Wt 63.5 kg
[~2021-08-02 15:40] MED LIST changes: +CEPH-322 PO; +FERR1TAB17 PO; +LEVO50TA7 PO; +NAP500T PO; +ONDA-144 PO
[2021-08-02 16:13] LABS: Basophils # (auto) 0.1 10 ^3/uL (0-0.2); Basophils % (auto) 0.5 % (0.0-2.0); Eosinophils # (auto) 0.1 10 ^3/uL (0-0.8); Hematocrit 38.6 % (36.0-46.0); Lymphocytes # (auto) 1.1 10 ^3/uL (0.4-5.4); Lymphocytes % (auto) 8.9 % (10.0-50.0); Mean Corpuscular Hemoglobin 29.5 pg (28.0-32.0); Mean Corpuscular Hgb Conc. 33.8 g/dL (32.0-36.0); Mean Corpuscular Volume 87.3 fL (80.0-100.0); Monocytes # (auto) 0.6 10 ^3/uL (0-1.3); Monocytes % (auto) 5.2 % (0.0-12.0); Neutrophils # (auto) 10.4 10 ^3/uL (1.6-8.6); Neutrophils % (auto) 84.4 % (37.0-80.0); Red Blood Cells 4.42 10^6/uL (4.0-5.20); Red Cell Distribution Width 15.4 % (11.8-14.3); White Blood Cell 12.3 10^3/uL (4.4-10.8)
[2021-08-02 16:41] LABS: Albumin 3.6 g/dL (3.4-5.0); Calcium 9.7 mg/dL (8.5-10.1); Potassium 3.9 mmol/L (3.5-5.1)
[2021-08-02 16:50] LABS: BUN/Creatinine Ratio 8.7; Bilirubin, Total 0.7 mg/dL (0.2-1.0); Total Protein 7.6 g/dL (6.4-8.2)
[2021-08-02] MEDS ORDERED: MORPHINE SULFATE INJECTION 2 MG/ML SYRG IV PRN (22:30)
[2021-08-02] MEDS ORDERED: cefTRIAXone 1GM/50ML D5W 50 ML IV ONE (22:30)
[2021-08-02] MEDS ORDERED: DOCUSATE SOD 100 MG CAP PO PRN (22:30)
[2021-08-02] MEDS ORDERED: NITROGLYCERIN 0.4 MG SL TAB SL PRN (22:30)
[2021-08-02] MEDS ORDERED: SOD CHL 0.45% 500 ML IV ONE (22:30)
[2021-08-03 00:40] LABS: Urine Bacteria NONE SEEN /hpf (None Seen); Urine Blood Negative /uL (Negative); Urine Specific Gravity 1.012 (1.001-1.035); Urine WBC 1 /hpf (0 - 5)
[2021-08-03 01:11] VITALS: BP 176/92
[2021-08-03] MEDS ORDERED: NIFE1TAB30 PO (02:09)
[2021-08-03] MEDS: HYDROcodone-ACET 5/325MG TAB PO PRN ×2 (02:25→22:34)
[2021-08-03] MEDS: ONDANSETRON HCL 4 MG/2 ML VIAL IV PRN (02:25)
[2021-08-03] MEDS ORDERED: GLUCAGON HYDROCHLORIDE (RDNA) 1 MG VIAL IV ONE (04:15)
[2021-08-03] MEDS ORDERED: NIFEdipine ER 30 MG TAB PO ONE (04:30)
[2021-08-03 05:00] VITALS: BP 146/76
[2021-08-03 05:59] LABS: Basophils # (auto) 0 10 ^3/uL (0-0.2); Basophils % (auto) 0.5 % (0.0-2.0); Eosinophils # (auto) 0.1 10 ^3/uL (0-0.8); Eosinophils % (auto) 2.1 % (0.0-7.0); Hematocrit 32.1 % (36.0-46.0); Lymphocytes # (auto) 1.7 10 ^3/uL (0.4-5.4); Lymphocytes % (auto) 24.1 % (10.0-50.0); Mean Corpuscular Hemoglobin 29.8 pg (28.0-32.0); Mean Corpuscular Hgb Conc. 34.2 g/dL (32.0-36.0); Mean Corpuscular Volume 87.1 fL (80.0-100.0); Monocytes # (auto) 0.5 10 ^3/uL (0-1.3); Monocytes % (auto) 6.5 % (0.0-12.0); Neutrophils # (auto) 4.8 10 ^3/uL (1.6-8.6); Neutrophils % (auto) 66.8 % (37.0-80.0); Nucleated Red Blood Cells % 0.1 %; Red Blood Cells 3.68 10^6/uL (4.0-5.20); Red Cell Distribution Width 15.4 % (11.8-14.3); White Blood Cell 7.1 10^3/uL (4.4-10.8)
[2021-08-03] MEDS ORDERED: HEPARIN SODIUM (PORCINE) 5000 UNITS/ML 1ML VIAL IV SCH (06:00)
[2021-08-03] MEDS ORDERED: HEPARIN SODIUM (PORCINE) 5000 UNITS/ML 1ML VIAL IV ONE (06:00)
[2021-08-03 06:12] LABS: Albumin 2.8 g/dL (3.4-5.0); Calcium 8.9 mg/dL (8.5-10.1); Magnesium 2.4 mg/dL (1.6-2.6); Potassium 4.1 mmol/L (3.5-5.1)
[2021-08-03 06:14] LABS: BUN/Creatinine Ratio 9.8
[2021-08-03 06:19] LABS: Bilirubin, Total 0.5 mg/dL (0.2-1.0); Phosphorus 4.7 mg/dL (2.5-4.90); Total Protein 5.8 g/dL (6.4-8.2)
[2021-08-03] MEDS: HEPARIN SODIUM (PORCINE) 5000 UNITS/ML 1ML VIAL SC SCH ×3 (06:39→22:35)
[2021-08-03] MEDS: LEVOTHYROXINE SODIUM 50 MCG TAB PO SCH (06:39)
[2021-08-03 09:00] VITALS: BP 121/76
[2021-08-03 13:00] VITALS: BP 163/81
[2021-08-03] MEDS: SOD CHL 0.45% 1,000 ML IV SCH ×2 (16:45→21:35)
[2021-08-03 17:00] VITALS: BP 160/87
[2021-08-03 22:00] VITALS: BP 165/86
[2021-08-03] MEDS: NIFEdipine ER 30 MG TAB PO SCH (22:26)
[2021-08-04 05:00] VITALS: BP_SYST 143; BP_SYST 147; BP_DIAS 77; BP_DIAS 79
[2021-08-04] MEDS: LEVOTHYROXINE SODIUM 50 MCG TAB PO SCH (06:15)
[2021-08-04] MEDS: HEPARIN SODIUM (PORCINE) 5000 UNITS/ML 1ML VIAL SC SCH ×3 (06:17→22:00)
[2021-08-04 08:00] VITALS: BP 148/73
[2021-08-04 10:24] LABS: Anion Gap 7 (5-15); BUN/Creatinine Ratio 9.6; Blood Urea Nitrogen 60 mg/dL (7-18); Calcium 8.6 mg/dL (8.5-10.1); Carbon Dioxide 24 mmol/L (21-32); Chloride 104 mmol/L (98-107); GFR African American 9 mL/min; GFR Non-African American 7 mL/min; Glucose 82 mg/dL (74-106); Potassium 4.1 mmol/L (3.5-5.1); Sodium 135 mmol/L (136-145)
[2021-08-04 10:33] LABS: Lipase 29862 U/L (73-393)
[2021-08-04 10:52] LABS: Amylase > 1302 U/L (25-115)
[2021-08-04] MEDS: ONDANSETRON HCL 4 MG/2 ML VIAL IV PRN ×2 (11:10→17:29)
[2021-08-04 12:00] VITALS: BP 147/72
[2021-08-04 16:00] VITALS: BP 143/79
[2021-08-04] MEDS: HYDROcodone-ACET 5/325MG TAB PO PRN (17:30)
[2021-08-04] MEDS: SOD CHL 0.45% 1,000 ML IV SCH (17:40)
[2021-08-04 20:00] VITALS: BP 137/66
[2021-08-04 22:00] VITALS: BP 137/66
[2021-08-04] MEDS: NIFEdipine ER 30 MG TAB PO SCH (22:14)
[2021-08-05] MEDS: ONDANSETRON HCL 4 MG/2 ML VIAL IV PRN ×2 (04:47→11:54)
[2021-08-05] MEDS: HYDROcodone-ACET 5/325MG TAB PO PRN ×2 (04:48→11:54)
[2021-08-05 05:00] VITALS: BP 158/73
[2021-08-05] MEDS: HEPARIN SODIUM (PORCINE) 5000 UNITS/ML 1ML VIAL SC SCH ×3 (06:00→21:50)
[2021-08-05] MEDS: LEVOTHYROXINE SODIUM 50 MCG TAB PO SCH (06:18)
[2021-08-05 08:00] VITALS: BP 146/69
[2021-08-05 09:00] VITALS: BP 146/69
[2021-08-05] MEDS ORDERED: LORazepam 2MG/ML-1ML VIAL IV ONE (10:00)
[2021-08-05] MEDS ORDERED: GABAPENTIN 100 MG CAP PO SCH (10:00)
[2021-08-05] MEDS ORDERED: GABAPENTIN 100 MG CAP PO ONE (11:00)
[2021-08-05 13:00] VITALS: BP 136/71
[2021-08-05 17:00] VITALS: BP 136/69
[2021-08-05] MEDS: NIFEdipine ER 30 MG TAB PO SCH (21:45)
[2021-08-05] MEDS ORDERED: HEPARIN SODIUM (PORCINE) 5000 UNITS/ML 1ML VIAL ONE (21:47)
[2021-08-05 22:00] VITALS: BP 140/73
[2021-08-06] VITALS (7 sets, daily range): BP systolic 117–139; BP diastolic 73–80
[2021-08-06] MEDS: SOD CHL 0.45% 1,000 ML IV SCH ×2 (02:13→13:33)
[2021-08-06 06:06] LABS: Albumin 2.9 g/dL (3.4-5.0); Anion Gap 7 (5-15); Blood Urea Nitrogen 30 mg/dL (7-18); Calcium 8.7 mg/dL (8.5-10.1); Carbon Dioxide 26 mmol/L (21-32); Chloride 100 mmol/L (98-107); Glucose 95 mg/dL (74-106); Potassium 4.2 mmol/L (3.5-5.1); Sodium 133 mmol/L (136-145)
[2021-08-06 06:15] LABS: Alanine Aminotransferase 17 U/L (13-56); Alkaline Phosphatase 182 U/L (45-117); Aspartate Aminotransferase 22 U/L (15-37); BUN/Creatinine Ratio 5.5; Bilirubin, Total 0.4 mg/dL (0.2-1.0); GFR African American 10 mL/min; GFR Non-African American 8 mL/min; Lipase 17564 U/L (73-393); Total Protein 6.2 g/dL (6.4-8.2); Uric Acid 4.8 mg/dL (2.6-6.0)
[2021-08-06] MEDS: LEVOTHYROXINE SODIUM 50 MCG TAB PO SCH (06:26)
[2021-08-06] MEDS: HEPARIN SODIUM (PORCINE) 5000 UNITS/ML 1ML VIAL SC SCH ×3 (06:26→22:22)
[2021-08-06 06:53] LABS: Amylase > 1302 U/L (25-115)
[2021-08-06] MEDS: HYDROcodone-ACET 5/325MG TAB PO PRN (10:12)
[2021-08-06] MEDS: GABAPENTIN 100 MG CAP PO SCH (10:13)
[2021-08-06] MEDS ORDERED: GABAPENTIN 300 MG CAP PO PRN (15:00)
[2021-08-06] MEDS: NIFEdipine ER 30 MG TAB PO SCH (22:21)
[2021-08-07 05:00] VITALS: BP 136/69
[2021-08-07] MEDS: HEPARIN SODIUM (PORCINE) 5000 UNITS/ML 1ML VIAL SC SCH ×2 (06:49→20:57)
[2021-08-07] MEDS: LEVOTHYROXINE SODIUM 50 MCG TAB PO SCH (06:57)
[2021-08-07 09:00] VITALS: BP 129/84
[2021-08-07 11:00] LABS: Basophils # (auto) 0.1 10 ^3/uL (0-0.2); Basophils % (auto) 2.3 % (0.0-2.0); Eosinophils # (auto) 0.3 10 ^3/uL (0-0.8); Eosinophils % (auto) 5.1 % (0.0-7.0); Hematocrit 36.5 % (36.0-46.0); Hemoglobin 12.4 g/dL (12.2-16.2); Lymphocytes # (auto) 0.8 10 ^3/uL (0.4-5.4); Mean Corpuscular Hemoglobin 30.1 pg (28.0-32.0); Mean Corpuscular Hgb Conc. 33.9 g/dL (32.0-36.0); Mean Corpuscular Volume 88.7 fL (80.0-100.0); Monocytes # (auto) 0.4 10 ^3/uL (0-1.3); Monocytes % (auto) 8.1 % (0.0-12.0); Neutrophils # (auto) 3.5 10 ^3/uL (1.6-8.6); Neutrophils % (auto) 69.5 % (37.0-80.0); Nucleated Red Blood Cells % 0.1 %; Red Blood Cells 4.12 10^6/uL (4.0-5.20); Red Cell Distribution Width 15.1 % (11.8-14.3)
[2021-08-07 12:07] LABS: Potassium 4.4 mmol/L (3.5-5.1)
[2021-08-07 12:17] LABS: Lipase 5814 U/L (73-393)
[2021-08-07 12:18] LABS: BUN/Creatinine Ratio 5.5; Bilirubin, Total 0.4 mg/dL (0.2-1.0); Total Protein 6.7 g/dL (6.4-8.2)
[2021-08-07 12:26] LABS: Amylase 1167 U/L (25-115)
[2021-08-07 13:00] VITALS: BP 146/72
[2021-08-07] MEDS: HYDROcodone-ACET 5/325MG TAB PO PRN ×2 (13:06→20:58)
[2021-08-07] MEDS: GABAPENTIN 100 MG CAP PO SCH (13:07)
[2021-08-07 16:44] VITALS: BP 125/68
[2021-08-07] MEDS: SOD CHL 0.45% 1,000 ML IV SCH (18:15)
[2021-08-07] MEDS: NIFEdipine ER 30 MG TAB PO SCH (20:56)
[2021-08-07 22:00] VITALS: BP 129/71
[2021-08-08 05:00] VITALS: BP 140/75
[2021-08-08 05:41] LABS: Magnesium 2.1 mg/dL (1.6-2.6); Potassium 4.9 mmol/L (3.5-5.1)
[2021-08-08 05:48] LABS: Albumin 2.5 g/dL (3.4-5.0); BUN/Creatinine Ratio 5.6; Bilirubin, Total 0.5 mg/dL (0.2-1.0); Calcium 8.5 mg/dL (8.5-10.1); Total Protein 5.7 g/dL (6.4-8.2)
[2021-08-08] MEDS: LEVOTHYROXINE SODIUM 50 MCG TAB PO SCH (06:48)
[2021-08-08] MEDS ORDERED: SODIUM CHL 0.9% 1000 ML BAG XX ONE (07:00)
[2021-08-08 08:00] VITALS: BP 123/69
[2021-08-08] MEDS ORDERED: DEXTROSE (50%) 50ML SYRG IV SCH (09:00)
[2021-08-08] MEDS: GABAPENTIN 100 MG CAP PO SCH (09:16)
[2021-08-08] MEDS: HEPARIN SODIUM (PORCINE) 5000 UNITS/ML 1ML VIAL SC SCH ×2 (09:21→23:21)
[2021-08-08] MEDS ORDERED: cefTRIAXone 1GM/50ML D5W 50 ML IV ONE (10:15)
[2021-08-08] MEDS ORDERED: KETOROLAC TROMETH 30 MG/ML 1ML VIAL IV ONE (10:15)
[2021-08-08] MEDS ORDERED: InsuLIN REG 1unit/0.01ml Soln (100units/ml) SC SCH (12:00)
[2021-08-08] MEDS ORDERED: ACCU-CHEK COMFORT CURVE STRIP VI SCH (12:00)
[2021-08-08] MEDS: SOD CHL 0.45% 1,000 ML IV SCH (14:15)
[2021-08-08] MEDS ORDERED: INSLANTI SC ×2 (14:24)
[2021-08-08 17:00] VITALS: BP 125/77
[2021-08-08] MEDS ORDERED: CLINIMIX PER PHARMACY 0 ML IV SCH (17:00)
[2021-08-08] MEDS ORDERED: CLINIMIX PER PHARMACY IV NR (20:00)
[2021-08-08 22:00] VITALS: BP 120/70
[2021-08-08] MEDS: NIFEdipine ER 30 MG TAB PO SCH (23:20)
[2021-08-09 05:00] VITALS: BP 135/69
[2021-08-09 06:24] LABS: INR 1.05 (0.9-1.15); Partial Thromboplastin Time 35.9 sec (23.6-33.0)
[2021-08-09 06:43] LABS: BUN/Creatinine Ratio 5.7; Calcium 8.5 mg/dL (8.5-10.1); Potassium 5.1 mmol/L (3.5-5.1)
[2021-08-09] MEDS: LEVOTHYROXINE SODIUM 50 MCG TAB PO SCH (06:50)
[2021-08-09] MEDS ORDERED: SODIUM CHL 0.9% 1000 ML BAG XX ONE (07:00)
[2021-08-09 08:00] VITALS: BP 140/39
[2021-08-09 09:09] VITALS: BP 140/39
[2021-08-09] MEDS: SOD CHL 0.45% 1,000 ML IV SCH ×2 (10:15→17:48)
[2021-08-09] MEDS: cefTRIAXone 1GM/50ML D5W 50 ML IV SCH (10:17)
[2021-08-09] MEDS: GABAPENTIN 100 MG CAP PO SCH (10:17)
[2021-08-09] MEDS ORDERED: LIDOCAINE VISCOUS 2% 15ML UD ONE (12:45)
[2021-08-09] MEDS ORDERED: MIDAZOLAM HCL 5 MG/ML-1ML VIAL ONE (12:45)
[2021-08-09] MEDS ORDERED: SODIUM CHLORIDE LOCK 10 ML ONE (12:45)
[2021-08-09] MEDS ORDERED: diphenhdrAMINE HCL 50 MG/1 ML VL ONE (12:46)
[2021-08-09] MEDS ORDERED: fentaNYL CITRATE 100 MCG/2 ML VL ONE (12:46)
[2021-08-09 13:00] VITALS: BP 126/68
[2021-08-09 20:00] VITALS: BP 140/78
[2021-08-09] MEDS: NIFEdipine ER 30 MG TAB PO SCH (21:59)
[2021-08-09 22:00] VITALS: BP 140/78
[2021-08-10 05:00] VITALS: BP 149/85
[2021-08-10] MEDS: LEVOTHYROXINE SODIUM 50 MCG TAB PO SCH (06:20)
[2021-08-10 09:02] VITALS: BP 122/73
[2021-08-10] MEDS: cefTRIAXone 1GM/50ML D5W 50 ML IV SCH (09:26)
[2021-08-10] MEDS: GABAPENTIN 100 MG CAP PO SCH (09:26)
[2021-08-10] MEDS: HYDROcodone-ACET 5/325MG TAB PO PRN ×2 (11:16→21:31)
[2021-08-10 13:00] VITALS: BP 142/79
[2021-08-10 17:00] VITALS: BP 134/75
[2021-08-10 20:00] VITALS: BP 140/78
[2021-08-10] MEDS: NIFEdipine ER 30 MG TAB PO SCH (21:38)
[2021-08-10 22:00] VITALS: BP_SYST 140; BP_SYST 149; BP_DIAS 78
[2021-08-11] MEDS: SOD CHL 0.45% 1,000 ML IV SCH (02:15)
[2021-08-11 05:00] VITALS: BP 142/76
[2021-08-11 05:56] LABS: Basophils # (auto) 0 10 ^3/uL (0-0.2); Basophils % (auto) 0.6 % (0.0-2.0); Eosinophils # (auto) 0.3 10 ^3/uL (0-0.8); Eosinophils % (auto) 7.3 % (0.0-7.0); Hematocrit 30.8 % (36.0-46.0); Hemoglobin 10.9 g/dL (12.2-16.2); Lymphocytes # (auto) 1.3 10 ^3/uL (0.4-5.4); Lymphocytes % (auto) 30.3 % (10.0-50.0); Mean Corpuscular Hemoglobin 30.9 pg (28.0-32.0); Mean Corpuscular Hgb Conc. 35.4 g/dL (32.0-36.0); Mean Corpuscular Volume 87.2 fL (80.0-100.0); Monocytes # (auto) 0.4 10 ^3/uL (0-1.3); Monocytes % (auto) 10.6 % (0.0-12.0); Neutrophils # (auto) 2.2 10 ^3/uL (1.6-8.6); Neutrophils % (auto) 51.2 % (37.0-80.0); Nucleated Red Blood Cells % 0.1 %; Red Blood Cells 3.53 10^6/uL (4.0-5.20); Red Cell Distribution Width 15.2 % (11.8-14.3); White Blood Cell 4.2 10^3/uL (4.4-10.8)
[2021-08-11] MEDS: LEVOTHYROXINE SODIUM 50 MCG TAB PO SCH (06:00)
[2021-08-11] MEDS ORDERED: SODIUM CHL 0.9% 1000 ML BAG XX ONE (07:00)
[2021-08-11 07:03] LABS: Potassium 5.6 mmol/L (3.5-5.1)
[2021-08-11] MEDS: cefTRIAXone 1GM/50ML D5W 50 ML IV SCH (08:07)
[2021-08-11] MEDS: ONDANSETRON HCL 4 MG/2 ML VIAL IV PRN (08:10)
[2021-08-11 09:00] VITALS: BP 140/71
[2021-08-11] MEDS: GABAPENTIN 100 MG CAP PO SCH (10:18)
[2021-08-11] MEDS ORDERED: PANT40TA2 PO (10:34)
[2021-08-11] MEDS ORDERED: SUCR1SUS10 PO (10:34)
[2021-08-11] MEDS ORDERED: HYDR-4902 PO (10:34)
[2021-08-11] MEDS ORDERED: GAB100C PO (10:34)
[2021-08-11 13:00] VITALS: BP 124/72
[2021-08-11 17:00] VITALS: BP 154/78
[2021-08-11 18:07] VITALS: BP 149/78
[2021-08-11] MEDS ORDERED: EPOETIN ALFA-EPBX 10,000 UNIT/1ML VIAL SC ONE (21:00)
== END 2021-08-11 19:05 | disposition home or self-care (01) | DRG 282 ==
LOC: EDBD → ER 15:40 → OVERFLOW 22:24 → CENTRAL 23:16
PROVIDERS: ADMIT Internal Medicine; ATTEND Internal Medicine
PROC: 5A1D70Z Performance of Urinary Filtration, Intermittent, Less than 6 Hours Per Day (ICD-10-PCS; principal; 2021-08-04)
PROC: 0DB98ZX Excision of Duodenum, Via Natural or Artificial Opening Endoscopic, Diagnostic (ICD-10-PCS; 2021-08-09)
PROC: 5A1D70Z Performance of Urinary Filtration, Intermittent, Less than 6 Hours Per Day (ICD-10-PCS; 2021-08-09)
PROC: 0DB68ZX Excision of Stomach, Via Natural or Artificial Opening Endoscopic, Diagnostic (ICD-10-PCS; 2021-08-09)
DX: K85.90 Acute pancreatitis without necrosis or infection, unspecified (principal); N18.6 End stage renal disease; N25.81 Secondary hyperparathyroidism of renal origin; K22.10 Ulcer of esophagus without bleeding; K83.8 Other specified diseases of biliary tract; E11.22 Type 2 diabetes mellitus with diabetic chronic kidney disease; E11.40 Type 2 diabetes mellitus with diabetic neuropathy, unspecified; Q44.6 Cystic disease of liver; Q61.2 Polycystic kidney, adult type; D64.9 Anemia, unspecified; D25.9 Leiomyoma of uterus, unspecified; K76.89 Other specified diseases of liver; E03.9 Hypothyroidism, unspecified; E78.00 Pure hypercholesterolemia, unspecified; Z20.822 Contact with and (suspected) exposure to COVID-19; K25.9 Gastric ulcer, unspecified as acute or chronic, without hemorrhage or perforation; K29.60 Other gastritis without bleeding; K44.9 Diaphragmatic hernia without obstruction or gangrene; Z82.49 Family history of ischemic heart disease and other diseases of the circulatory system; Z90.49 Acquired absence of other specified parts of digestive tract
CPT/HCPCS: 36415; 43239; 71045; 74176; 74181; 80048; 80053; 81001; 82150; 83605; 83690; 83735; 84100; 84132; 84478; 84484; 84550; 85025; 85610; 85730; 86301; 86850; 86900; 86901; 87040; 90935; 93005; 93306; 93970; 96365; G0378; J0696; J1885; J2250; J2405

== ENCOUNTER 2021-08-13 12:23 | Inpatient (IN) | payer MEDICAID ==
[~2021-08-13] VITALS: Ht 167.6 cm; Wt 62.4 kg
[~2021-08-13 12:23] MED LIST changes: -CALC0.5C PO; -CEPH-322 PO; +GAB100C PO; +HYDR-4902 PO; -LEVO88TA4 PO; -NAP500T PO; -NIF10C PO; +NIFE1TAB30 PO; -ONDA-144 PO; +PANT40TA2 PO; +SUCR1SUS10 PO
[2021-08-13] MEDS ORDERED: diphenhdrAMINE HCL 50 MG/1 ML VL IV ONE (13:15)
[2021-08-13] MEDS ORDERED: methylPREDNISolone SOD SUCC 125 MG/2 ML VL IV ONE (13:15)
[2021-08-13] MEDS ORDERED: ONDANSETRON HCL 4 MG/2 ML VIAL IV ONE (13:15)
[2021-08-13 13:31] LABS: Basophils # (auto) 0 10 ^3/uL (0-0.2); Basophils % (auto) 0.2 % (0.0-2.0); Eosinophils # (auto) 0 10 ^3/uL (0-0.8); Eosinophils % (auto) 0.8 % (0.0-7.0); Hematocrit 34.1 % (36.0-46.0); Hemoglobin 11.7 g/dL (12.2-16.2); Lymphocytes # (auto) 0.7 10 ^3/uL (0.4-5.4); Lymphocytes % (auto) 12.1 % (10.0-50.0); Mean Corpuscular Hemoglobin 29.9 pg (28.0-32.0); Mean Corpuscular Hgb Conc. 34.4 g/dL (32.0-36.0); Mean Corpuscular Volume 87.1 fL (80.0-100.0); Monocytes # (auto) 0.3 10 ^3/uL (0-1.3); Monocytes % (auto) 5.4 % (0.0-12.0); Neutrophils # (auto) 4.5 10 ^3/uL (1.6-8.6); Neutrophils % (auto) 81.5 % (37.0-80.0); Nucleated Red Blood Cells % 0.2 %; Red Blood Cells 3.92 10^6/uL (4.0-5.20); Red Cell Distribution Width 15.4 % (11.8-14.3); White Blood Cell 5.5 10^3/uL (4.4-10.8)
[2021-08-13 13:50] LABS: Albumin 3.3 g/dL (3.4-5.0); BUN/Creatinine Ratio 7.4; Calcium 8.9 mg/dL (8.5-10.1); Potassium 4.1 mmol/L (3.5-5.1)
[2021-08-13 13:52] LABS: Bilirubin, Total 0.4 mg/dL (0.2-1.0); Total Protein 6.4 g/dL (6.4-8.2)
[2021-08-13 13:55] LABS: Amylase 426 U/L (25-115)
[2021-08-13 13:57] LABS: Lipase 2373 U/L (73-393)
[2021-08-13] MEDS ORDERED: ONDANSETRON HCL 4 MG/2 ML VIAL IV PRN (15:30)
[2021-08-13] MEDS ORDERED: ACETAMINOPHEN 325 MG TAB PO PRN (15:30)
[2021-08-13] MEDS ORDERED: HYDROcodone-ACET 5/325MG TAB PO PRN (15:30)
[2021-08-13] MEDS ORDERED: DOCUSATE SOD 100 MG CAP PO PRN (15:30)
[2021-08-13] MEDS ORDERED: TEMAZEPAM 15 MG CAP PO PRN (15:30)
[2021-08-13] MEDS ORDERED: MORPHINE SULFATE INJECTION 2 MG/ML SYRG IV PRN ×2 (15:30)
[2021-08-13] MEDS ORDERED: ALUM & MAG HYDROX-SIMETH LIQ(MAALOX) 30 ML PO PRN (15:30)
[2021-08-13] MEDS ORDERED: NITROGLYCERIN 0.4 MG SL TAB SL PRN (15:30)
[2021-08-13] MEDS: methylPREDNISolone SOD SUCC 40 MG/ML VL IV SCH ×2 (16:07→23:23)
[2021-08-13] MEDS ORDERED: FAMOTIDINE (10MG/ML) 2ML VL IV SCH (22:00)
[2021-08-13 22:10] VITALS: BP 133/70
[2021-08-13 23:21] VITALS: BP 133/70
[2021-08-14 05:09] VITALS: BP 145/70
[2021-08-14 05:11] LABS: Basophils # (auto) 0 10 ^3/uL (0-0.2); Basophils % (auto) 0.2 % (0.0-2.0); Eosinophils # (auto) 0 10 ^3/uL (0-0.8); Hematocrit 31.7 % (36.0-46.0); Hemoglobin 11.2 g/dL (12.2-16.2); Lymphocytes # (auto) 0.4 10 ^3/uL (0.4-5.4); Lymphocytes % (auto) 9.9 % (10.0-50.0); Mean Corpuscular Hemoglobin 30.7 pg (28.0-32.0); Mean Corpuscular Hgb Conc. 35.2 g/dL (32.0-36.0); Mean Corpuscular Volume 87.4 fL (80.0-100.0); Monocytes # (auto) 0.1 10 ^3/uL (0-1.3); Monocytes % (auto) 1.8 % (0.0-12.0); Neutrophils # (auto) 3.4 10 ^3/uL (1.6-8.6); Neutrophils % (auto) 88.1 % (37.0-80.0); Nucleated Red Blood Cells % 0.1 %; Red Blood Cells 3.63 10^6/uL (4.0-5.20); Red Cell Distribution Width 15.1 % (11.8-14.3); White Blood Cell 3.8 10^3/uL (4.4-10.8)
[2021-08-14 05:31] LABS: Calcium 9.2 mg/dL (8.5-10.1); Potassium 5.3 mmol/L (3.5-5.1)
[2021-08-14 05:37] LABS: Albumin 2.9 g/dL (3.4-5.0); BUN/Creatinine Ratio 8.2; Total Protein 6.1 g/dL (6.4-8.2)
[2021-08-14 05:44] LABS: Bilirubin, Total 0.3 mg/dL (0.2-1.0)
[2021-08-14] MEDS ORDERED: SODIUM CHL 0.9% 1000 ML BAG XX ONE (07:00)
[2021-08-14] MEDS: methylPREDNISolone SOD SUCC 40 MG/ML VL IV SCH ×3 (07:06→23:30)
[2021-08-14 09:00] VITALS: BP 142/80
[2021-08-14] MEDS: diphenhdrAMINE HCL 25 MG CAP PO SCH (09:15)
[2021-08-14 13:00] VITALS: BP 143/72
[2021-08-14 17:00] VITALS: BP 144/73
[2021-08-14] MEDS ORDERED: diphenhdrAMINE HCL 25 MG CAP PO ONE (22:30)
[2021-08-15 05:00] VITALS: BP 164/83
[2021-08-15 06:26] LABS: Basophils # (auto) 0 10 ^3/uL (0-0.2); Basophils % (auto) 0.1 % (0.0-2.0); Eosinophils # (auto) 0 10 ^3/uL (0-0.8); Hematocrit 30.5 % (36.0-46.0); Hemoglobin 10.6 g/dL (12.2-16.2); Lymphocytes # (auto) 0.5 10 ^3/uL (0.4-5.4); Lymphocytes % (auto) 6.5 % (10.0-50.0); Mean Corpuscular Hemoglobin 30.3 pg (28.0-32.0); Mean Corpuscular Hgb Conc. 34.7 g/dL (32.0-36.0); Mean Corpuscular Volume 87.4 fL (80.0-100.0); Monocytes # (auto) 0.2 10 ^3/uL (0-1.3); Monocytes % (auto) 2.7 % (0.0-12.0); Neutrophils # (auto) 6.3 10 ^3/uL (1.6-8.6); Neutrophils % (auto) 90.7 % (37.0-80.0); Nucleated Red Blood Cells % 0.1 %; Red Blood Cells 3.49 10^6/uL (4.0-5.20); Red Cell Distribution Width 15.2 % (11.8-14.3)
[2021-08-15] MEDS: methylPREDNISolone SOD SUCC 40 MG/ML VL IV SCH ×2 (06:32→20:00)
[2021-08-15 06:48] LABS: Albumin 2.9 g/dL (3.4-5.0); BUN/Creatinine Ratio 9.8; Calcium 9.2 mg/dL (8.5-10.1); Potassium 5.3 mmol/L (3.5-5.1)
[2021-08-15 06:52] LABS: Bilirubin, Total 0.3 mg/dL (0.2-1.0); Total Protein 6.4 g/dL (6.4-8.2)
[2021-08-15 09:00] VITALS: BP 144/74
[2021-08-15] MEDS: diphenhdrAMINE HCL 25 MG CAP PO SCH (09:20)
[2021-08-15 13:00] VITALS: BP 106/68
[2021-08-15] MEDS ORDERED: HYDR-4924 PO (13:13)
[2021-08-15] MEDS ORDERED: PRED20TA2 PO (13:13)
[2021-08-15 16:58] VITALS: BP 145/72
== END 2021-08-15 20:07 | disposition home or self-care (01) | DRG 385 ==
LOC: EDBD → ER 12:23 → OVERFLOW 15:30 → CENTRAL 21:15
PROVIDERS: ADMIT Family Medicine; ATTEND Internal Medicine
PROC: 5A1D70Z Performance of Urinary Filtration, Intermittent, Less than 6 Hours Per Day (ICD-10-PCS; principal; 2021-08-15)
DX: L29.8 Other pruritus (principal); K85.90 Acute pancreatitis without necrosis or infection, unspecified; D69.6 Thrombocytopenia, unspecified; I12.0 Hypertensive chronic kidney disease with stage 5 chronic kidney disease or end stage renal disease; N18.6 End stage renal disease; D63.1 Anemia in chronic kidney disease; K86.2 Cyst of pancreas; E11.22 Type 2 diabetes mellitus with diabetic chronic kidney disease; L23.9 Allergic contact dermatitis, unspecified cause; N25.81 Secondary hyperparathyroidism of renal origin; K86.1 Other chronic pancreatitis; Z20.822 Contact with and (suspected) exposure to COVID-19; J98.11 Atelectasis; Z82.49 Family history of ischemic heart disease and other diseases of the circulatory system; Z68.22 Body mass index [BMI] 22.0-22.9, adult
CPT/HCPCS: 36415; 71045; 76705; 80053; 82150; 83690; 83735; 84484; 85025; 85652; 86038; 86141; 87081; 90935; 93005; 96374; 96375; G0378; J2405; J3490

== ENCOUNTER 2021-08-19 19:26 | Inpatient (IN) | payer MEDICAID ==
[~2021-08-19] VITALS: Ht 149.9 cm; Wt 63.7 kg
[~2021-08-19 19:26] MED LIST changes: +HYDR-4924 PO; +PRED20TA2 PO
[2021-08-19] MEDS ORDERED: ONDANSETRON HCL 4 MG/2 ML VIAL IV ONE (20:30)
[2021-08-19] MEDS ORDERED: FAMOTIDINE (10MG/ML) 2ML VL IV ONE (20:30)
[2021-08-19] MEDS ORDERED: LIDOCAINE VISCOUS 2% 15ML UD PO ONE (20:30)
[2021-08-19] MEDS ORDERED: ALUM & MAG HYDROX-SIMETH LIQ(MAALOX) 30 ML PO ONE (20:30)
[2021-08-19 21:02] LABS: Basophils # (auto) 0 10 ^3/uL (0-0.2); Basophils % (auto) 0.1 % (0.0-2.0); Eosinophils # (auto) 0.4 10 ^3/uL (0-0.8); Eosinophils % (auto) 5.4 % (0.0-7.0); Hemoglobin 10.3 g/dL (12.2-16.2); Lymphocytes # (auto) 1.7 10 ^3/uL (0.4-5.4); Lymphocytes % (auto) 24.8 % (10.0-50.0); Mean Corpuscular Hgb Conc. 35.4 g/dL (32.0-36.0); Mean Corpuscular Volume 87.6 fL (80.0-100.0); Monocytes # (auto) 0.7 10 ^3/uL (0-1.3); Monocytes % (auto) 10.7 % (0.0-12.0); Neutrophils # (auto) 4.1 10 ^3/uL (1.6-8.6); Nucleated Red Blood Cells % 0.1 %; Red Blood Cells 3.31 10^6/uL (4.0-5.20); Red Cell Distribution Width 15.2 % (11.8-14.3); White Blood Cell 6.9 10^3/uL (4.4-10.8)
[2021-08-19 21:23] LABS: Calcium 8.6 mg/dL (8.5-10.1); Magnesium 2.2 mg/dL (1.6-2.6); Potassium 4.3 mmol/L (3.5-5.1)
[2021-08-19 21:31] LABS: BUN/Creatinine Ratio 11.2; Bilirubin, Total 0.5 mg/dL (0.2-1.0); Total Protein 6.1 g/dL (6.4-8.2)
[2021-08-19] MEDS ORDERED: SODIUM CHLORIDE 0.9% 500 ML IV ONE (22:45)
[2021-08-19] MEDS ORDERED: HYDROcodone-ACET 5/325MG TAB PO ONE (22:45)
[2021-08-19] MEDS ORDERED: METOCLOPRAMIDE HCL 5MG/ml INJ 2ml VIAL IV ONE (22:45)
[2021-08-19] MEDS ORDERED: FLUTICASONE PROP NASAL SPR 0.05 % (50MCG) 16GM PRN (23:45)
[2021-08-19] MEDS ORDERED: [UNRECOGNIZED DRUG - OTHER] IN SCH (23:45)
[2021-08-19] MEDS ORDERED: ACETAMINOPHEN 325 MG TAB PO PRN (23:45)
[2021-08-19] MEDS ORDERED: HYDROcodone-ACET 5/325MG TAB PO PRN ×2 (23:45)
[2021-08-19] MEDS ORDERED: HYDROmorphone HCL 2 MG/ML VL IV PRN (23:45)
[2021-08-19] MEDS ORDERED: ALBUTEROL SULF 2.5 MG/0.5ML(0.5%) NEB SOLN NEB ONE (23:45)
[2021-08-19] MEDS ORDERED: ONDANSETRON HCL 4 MG/2 ML VIAL IV PRN (23:45)
[2021-08-19] MEDS ORDERED: DOCUSATE SOD 100 MG CAP PO PRN (23:45)
[2021-08-20] VITALS (8 sets, daily range): BP systolic 123–152; BP diastolic 62–74
[2021-08-20] MEDS ORDERED: ALBUTEROL SULF 2.5 MG/0.5ML(0.5%) NEB SOLN ONE
[2021-08-20] MEDS: PANTOPRAZOLE 40 MG TAB PO SCH ×3 (00:23→21:59)
[2021-08-20] MEDS ORDERED: LISI-716 PO (02:15)
[2021-08-20] MEDS: SUCRALFATE 1 GM/10 ML ORAL SUSP PO SCH ×4 (06:15→21:57)
[2021-08-20] MEDS: LEVOTHYROXINE SODIUM 50 MCG TAB PO SCH (06:16)
[2021-08-20] MEDS: GABAPENTIN 100 MG CAP PO SCH (10:56)
[2021-08-20] MEDS: FOLIC ACID 1 MG TAB PO SCH (10:56)
[2021-08-20] MEDS: SODIUM CHLORIDE 0.9% 1,000 ML IV SCH ×2 (13:30→20:10)
[2021-08-20] MEDS: FERRIC CITRATE 420 MG PO SCH ×2 (14:00→22:00)
[2021-08-20] MEDS: ATORVASTATIN 20 MG TAB PO SCH (21:58)
[2021-08-20] MEDS: NIFEdipine ER 30 MG TAB PO SCH (22:00)
[2021-08-21] MEDS: FERRIC CITRATE 420 MG PO SCH (02:58)
[2021-08-21] MEDS: SODIUM CHLORIDE 0.9% 1,000 ML IV SCH ×2 (03:16→11:00)
[2021-08-21 04:56] VITALS: BP 141/58
[2021-08-21] MEDS: SUCRALFATE 1 GM/10 ML ORAL SUSP PO SCH ×4 (06:20→21:34)
[2021-08-21] MEDS: LEVOTHYROXINE SODIUM 50 MCG TAB PO SCH (06:29)
[2021-08-21 08:00] VITALS: BP 145/68
[2021-08-21] MEDS: GABAPENTIN 100 MG CAP PO SCH (11:02)
[2021-08-21] MEDS: FOLIC ACID 1 MG TAB PO SCH (11:02)
[2021-08-21] MEDS: PANTOPRAZOLE 40 MG TAB PO SCH ×2 (11:02→21:36)
[2021-08-21 12:00] VITALS: BP 139/64
[2021-08-21] MEDS ORDERED: SODIUM CHLORIDE 0.9% 1,000 ML IV SCH (12:15)
[2021-08-21] MEDS ORDERED: SODIUM CHL 0.9% 1000 ML BAG XX ONE (14:15)
[2021-08-21] MEDS: FERRIC CITRATE 210 MG PO SCH ×2 (14:17→21:38)
[2021-08-21 16:00] VITALS: BP 137/64
[2021-08-21 17:32] LABS: Hematocrit 37.9 % (36.0-46.0); Hemoglobin 12.6 g/dL (12.2-16.2)
[2021-08-21] MEDS ORDERED: EPOETIN ALFA-EPBX 10,000 UNIT/1ML VIAL SC ONE (21:00)
[2021-08-21] MEDS: NIFEdipine ER 30 MG TAB PO SCH (21:35)
[2021-08-21] MEDS: ATORVASTATIN 20 MG TAB PO SCH (21:36)
[2021-08-21 21:57] VITALS: BP 162/70
== END 2021-08-21 21:55 | disposition short-term general hospital (02) | DRG 282 ==
LOC: ER 19:26 → OVERFLOW 23:40 → EAST 08-20 01:09
PROVIDERS: ADMIT Internal Medicine; ATTEND Internal Medicine
PROC: 5A1D70Z Performance of Urinary Filtration, Intermittent, Less than 6 Hours Per Day (ICD-10-PCS; principal; 2021-08-21)
DX: K85.90 Acute pancreatitis without necrosis or infection, unspecified (principal); I12.0 Hypertensive chronic kidney disease with stage 5 chronic kidney disease or end stage renal disease; E11.22 Type 2 diabetes mellitus with diabetic chronic kidney disease; N18.6 End stage renal disease; K86.1 Other chronic pancreatitis; K21.9 Gastro-esophageal reflux disease without esophagitis; Z20.822 Contact with and (suspected) exposure to COVID-19; E78.5 Hyperlipidemia, unspecified; E03.9 Hypothyroidism, unspecified; Z82.49 Family history of ischemic heart disease and other diseases of the circulatory system; Z99.2 Dependence on renal dialysis; Z90.49 Acquired absence of other specified parts of digestive tract
CPT/HCPCS: 36415; 71045; 80053; 82962; 83690; 83735; 84484; 85014; 85018; 85025; 87081; 90935; 93005; 96361; 96374; 96375; G0378; J2405; J3490

== ENCOUNTER 2022-04-08 07:31 | Inpatient (IN) | payer MEDICAID ==
[~2022-04-08] VITALS: Ht 152.4 cm; Wt 60.5 kg
[~2022-04-08 07:31] MED LIST changes: +LISI-716 PO
[2022-04-08 08:36] LABS: Basophils # (auto) 0 10 ^3/uL (0-0.2); Basophils % (auto) 0.3 % (0.0-2.0); Eosinophils # (auto) 0.1 10 ^3/uL (0-0.8); Eosinophils % (auto) 0.9 % (0.0-7.0); Hematocrit 43.2 % (36.0-46.0); Hemoglobin 14.1 g/dL (12.2-16.2); Lymphocytes # (auto) 0.8 10 ^3/uL (0.4-5.4); Lymphocytes % (auto) 9.5 % (10.0-50.0); Mean Corpuscular Hemoglobin 30.1 pg (28.0-32.0); Mean Corpuscular Hgb Conc. 32.5 g/dL (32.0-36.0); Mean Corpuscular Volume 92.5 fL (80.0-100.0); Monocytes # (auto) 0.4 10 ^3/uL (0-1.3); Monocytes % (auto) 4.3 % (0.0-12.0); Neutrophils # (auto) 7.6 10 ^3/uL (1.6-8.6); Red Blood Cells 4.68 10^6/uL (4.0-5.20); Red Cell Distribution Width 16.2 % (11.8-14.3); White Blood Cell 8.9 10^3/uL (4.4-10.8)
[2022-04-08 08:38] LABS: Urine Bacteria FEW /hpf (None Seen); Urine Blood TRACE /uL (Negative); Urine WBC 1 /hpf (0 - 5)
[2022-04-08 09:02] LABS: Albumin 3.8 g/dL (3.4-5.0); BUN/Creatinine Ratio 10.7; Bilirubin, Total 0.8 mg/dL (0.2-1.0); Calcium 9.8 mg/dL (8.5-10.1); Potassium 4.7 mmol/L (3.5-5.1); Total Protein 6.9 g/dL (6.4-8.2)
[2022-04-08] MEDS ORDERED: MORPHINE SULFATE INJ 2 MG/ml SYRG IV PRN ×2 (15:15)
[2022-04-08] MEDS ORDERED: NITROGLYCERIN 0.4 MG SL TAB SL PRN (15:15)
[2022-04-08] MEDS ORDERED: ONDANSETRON HCL 4 MG/2 ML VIAL IV PRN (15:15)
[2022-04-08] MEDS ORDERED: ACETAMINOPHEN 325 MG TAB PO PRN (15:15)
[2022-04-08] MEDS ORDERED: HYDROcodone-ACET 5/325MG TAB PO PRN (15:15)
[2022-04-08] MEDS ORDERED: hydrALAZINE HCL 20 MG/ML VL IV PRN (15:30)
[2022-04-08] MEDS ORDERED: SODIUM CHLORIDE 0.9% 1,000 ML IV ONE (15:30)
[2022-04-08] MEDS ORDERED: DEXTROSE (50%) 50ML SYRG IV PRN (15:45)
[2022-04-08] MEDS ORDERED: metroNIDAZOLE 500MG/100ML 100 ML IV ONE (15:45)
[2022-04-08] MEDS ORDERED: cefTRIAXone 1GM/50ML D5W 50 ML IV ONE (15:45)
[2022-04-08 17:38] LABS: Cholesterol 196 mg/dL (< 200); HDL Cholesterol 95 mg/dL (40-59); LDL Cholesterol 90 mg/dL (< 100); Triglycerides 80 mg/dL (< 150)
[2022-04-09] MEDS ORDERED: HEPARIN SODIUM (PORCINE) 5000 UNITS/ML 1ML VIAL ONE (02:41)
[2022-04-09] MEDS: PANTOPRAZOLE 40 MG TAB PO SCH ×2 (03:03→15:03)
[2022-04-09] MEDS: SUCRALFATE 1 GM/10 ML ORAL SUSP PO SCH ×6 (03:05→21:18)
[2022-04-09] MEDS: LISINOPRIL 10 MG TAB PO SCH ×2 (03:06→21:20)
[2022-04-09 04:49] LABS: Basophils # (auto) 0.1 10 ^3/uL (0-0.2); Basophils % (auto) 0.9 % (0.0-2.0); Eosinophils # (auto) 0.4 10 ^3/uL (0-0.8); Eosinophils % (auto) 4.6 % (0.0-7.0); Hematocrit 42.1 % (36.0-46.0); Hemoglobin 14.2 g/dL (12.2-16.2); Lymphocytes # (auto) 2.2 10 ^3/uL (0.4-5.4); Lymphocytes % (auto) 29.2 % (10.0-50.0); Mean Corpuscular Hemoglobin 30.8 pg (28.0-32.0); Mean Corpuscular Hgb Conc. 33.8 g/dL (32.0-36.0); Mean Corpuscular Volume 91.1 fL (80.0-100.0); Monocytes # (auto) 0.6 10 ^3/uL (0-1.3); Monocytes % (auto) 7.3 % (0.0-12.0); Neutrophils # (auto) 4.5 10 ^3/uL (1.6-8.6); Nucleated Red Blood Cells % 0.1 %; Red Blood Cells 4.62 10^6/uL (4.0-5.20); Red Cell Distribution Width 16.1 % (11.8-14.3); White Blood Cell 7.7 10^3/uL (4.4-10.8)
[2022-04-09] MEDS: LEVOTHYROXINE SODIUM 50 MCG TAB PO SCH (06:18)
[2022-04-09] MEDS: metroNIDAZOLE 500MG/100ML 100 ML IV SCH ×4 (06:54→21:17)
[2022-04-09] MEDS: InsuLIN REG 1unit/0.01ml Soln (100units/ml) SC SCH ×6 (06:55→21:33)
[2022-04-09] MEDS: ACCU-CHEK COMFORT CURVE STRIP VI SCH ×6 (06:55→21:20)
[2022-04-09] MEDS ORDERED: SODIUM CHL 0.9% 1000 ML BAG XX ONE (07:00)
[2022-04-09] MEDS ORDERED: GABAPENTIN 100 MG CAP PO SCH (10:00)
[2022-04-09] MEDS ORDERED: ENOXAPARIN SOD 40 MG/0.4 ML SYRINGE SC SCH (10:00)
[2022-04-09] MEDS: HEPARIN SODIUM (PORCINE) 5000 UNITS/ML 1ML VIAL SC SCH ×3 (11:21→21:43)
[2022-04-09] MEDS: NIFEdipine ER 30 MG TAB PO SCH ×2 (11:22→21:19)
[2022-04-09 12:19] VITALS: BP 160/76
[2022-04-09 13:22] VITALS: BP 132/66
[2022-04-09] MEDS: cefTRIAXone 1GM/50ML D5W 50 ML IV SCH (14:43)
[2022-04-09] MEDS: GABAPENTIN 100 MG CAP PO SCH (21:18)
[2022-04-09] MEDS ORDERED: MELATONIN 5 MG TAB PO ONE (22:00)
[2022-04-10 05:00] VITALS: BP 135/71
[2022-04-10] MEDS: metroNIDAZOLE 500MG/100ML 100 ML IV SCH ×3 (06:26→22:21)
[2022-04-10] MEDS: GABAPENTIN 100 MG CAP PO SCH ×3 (06:26→22:19)
[2022-04-10] MEDS: SUCRALFATE 1 GM/10 ML ORAL SUSP PO SCH ×4 (06:26→22:21)
[2022-04-10] MEDS: ACCU-CHEK COMFORT CURVE STRIP VI SCH ×4 (06:27→22:09)
[2022-04-10] MEDS: LEVOTHYROXINE SODIUM 50 MCG TAB PO SCH (06:27)
[2022-04-10] MEDS: InsuLIN REG 1unit/0.01ml Soln (100units/ml) SC SCH ×4 (06:39→22:18)
[2022-04-10 07:52] LABS: BUN/Creatinine Ratio 11.1; Potassium 5.3 mmol/L (3.5-5.1)
[2022-04-10 09:11] VITALS: BP 128/63
[2022-04-10] MEDS: PANTOPRAZOLE 40 MG TAB PO SCH (09:12)
[2022-04-10] MEDS: cefTRIAXone 1GM/50ML D5W 50 ML IV SCH (09:12)
[2022-04-10] MEDS: HEPARIN SODIUM (PORCINE) 5000 UNITS/ML 1ML VIAL SC SCH ×2 (09:15→22:22)
[2022-04-10 13:20] VITALS: BP 124/61
[2022-04-10 16:40] VITALS: BP 122/59
[2022-04-10 20:00] VITALS: BP 123/60
[2022-04-10 22:00] VITALS: BP_SYST 123; BP_SYST 132; BP_DIAS 60; BP_DIAS 75
[2022-04-10] MEDS: LISINOPRIL 10 MG TAB PO SCH (22:19)
[2022-04-10] MEDS: NIFEdipine ER 30 MG TAB PO SCH (22:20)
[2022-04-11] VITALS (7 sets, daily range): BP systolic 113–141; BP diastolic 57–75
[2022-04-11] MEDS: metroNIDAZOLE 500MG/100ML 100 ML IV SCH (06:24)
[2022-04-11] MEDS: ACCU-CHEK COMFORT CURVE STRIP VI SCH ×4 (06:25→21:56)
[2022-04-11] MEDS: LEVOTHYROXINE SODIUM 50 MCG TAB PO SCH (06:25)
[2022-04-11] MEDS: InsuLIN REG 1unit/0.01ml Soln (100units/ml) SC SCH ×4 (06:25→22:00)
[2022-04-11] MEDS: SUCRALFATE 1 GM/10 ML ORAL SUSP PO SCH ×4 (06:25→21:27)
[2022-04-11] MEDS: GABAPENTIN 100 MG CAP PO SCH ×3 (06:25→21:27)
[2022-04-11] MEDS: cefTRIAXone 1GM/50ML D5W 50 ML IV SCH (08:28)
[2022-04-11] MEDS: PANTOPRAZOLE 40 MG TAB PO SCH (10:19)
[2022-04-11] MEDS: HEPARIN SODIUM (PORCINE) 5000 UNITS/ML 1ML VIAL SC SCH ×2 (10:23→22:40)
[2022-04-11 12:09] LABS: BUN/Creatinine Ratio 8.9; Calcium 9.2 mg/dL (8.5-10.1); Potassium 3.9 mmol/L (3.5-5.1)
[2022-04-11] MEDS: NIFEdipine ER 30 MG TAB PO SCH (21:54)
[2022-04-11] MEDS: LISINOPRIL 10 MG TAB PO SCH (21:55)
[2022-04-12 05:00] VITALS: BP 119/59
[2022-04-12] MEDS: ACCU-CHEK COMFORT CURVE STRIP VI SCH ×4 (06:06→21:31)
[2022-04-12] MEDS: InsuLIN REG 1unit/0.01ml Soln (100units/ml) SC SCH ×4 (06:06→21:51)
[2022-04-12] MEDS: SUCRALFATE 1 GM/10 ML ORAL SUSP PO SCH ×4 (06:07→21:30)
[2022-04-12] MEDS: GABAPENTIN 100 MG CAP PO SCH ×3 (06:07→21:30)
[2022-04-12] MEDS: LEVOTHYROXINE SODIUM 50 MCG TAB PO SCH (06:09)
[2022-04-12] MEDS: HEPARIN SODIUM (PORCINE) 5000 UNITS/ML 1ML VIAL SC SCH (10:00)
[2022-04-12] MEDS: PANTOPRAZOLE 40 MG TAB PO SCH (10:44)
[2022-04-12 13:00] VITALS: BP 140/71
[2022-04-12 17:00] VITALS: BP 135/83
[2022-04-12] MEDS: LISINOPRIL 10 MG TAB PO SCH (22:06)
[2022-04-12] MEDS: METOPROLOL TARTRATE 25 MG TAB PO SCH (22:07)
[2022-04-13 00:51] VITALS: BP 98/53
[2022-04-13 04:57] VITALS: BP 132/63
[2022-04-13] MEDS: LEVOTHYROXINE SODIUM 50 MCG TAB PO SCH (05:25)
[2022-04-13] MEDS: GABAPENTIN 100 MG CAP PO SCH (05:25)
[2022-04-13] MEDS: SUCRALFATE 1 GM/10 ML ORAL SUSP PO SCH ×2 (05:26→11:55)
[2022-04-13] MEDS: InsuLIN REG 1unit/0.01ml Soln (100units/ml) SC SCH ×2 (05:26→11:30)
[2022-04-13] MEDS: ACCU-CHEK COMFORT CURVE STRIP VI SCH ×2 (05:26→11:55)
[2022-04-13 06:23] LABS: Calcium 9.8 mg/dL (8.5-10.1); Potassium 4.6 mmol/L (3.5-5.1)
[2022-04-13 06:25] LABS: BUN/Creatinine Ratio 8.4
[2022-04-13 09:00] VITALS: BP 128/66
[2022-04-13] MEDS: PANTOPRAZOLE 40 MG TAB PO SCH (09:22)
[2022-04-13] MEDS: METOPROLOL TARTRATE 25 MG TAB PO SCH (09:22)
[2022-04-13] MEDS ORDERED: MET25T PO (10:26)
[2022-04-13] MEDS ORDERED: ASPI-498 PO (10:26)
[2022-04-13 13:00] VITALS: BP 146/60
[2022-04-13 17:00] VITALS: BP 120/70
== END 2022-04-13 17:33 | disposition home or self-care (01) | DRG 282 ==
LOC: ER 07:31 → TELE 15:17 → TELE-E-ADS 04-09 11:54 → TELE-EAST 04-09 20:20
PROVIDERS: ADMIT Registered Nurse; ATTEND Nurse Practitioner Acute Care
PROC: 5A1D70Z Performance of Urinary Filtration, Intermittent, Less than 6 Hours Per Day (ICD-10-PCS; principal; 2022-04-10)
PROC: 5A1D70Z Performance of Urinary Filtration, Intermittent, Less than 6 Hours Per Day (ICD-10-PCS; 2022-04-12)
DX: K85.90 Acute pancreatitis without necrosis or infection, unspecified (principal); D69.6 Thrombocytopenia, unspecified; N18.6 End stage renal disease; I12.0 Hypertensive chronic kidney disease with stage 5 chronic kidney disease or end stage renal disease; E11.22 Type 2 diabetes mellitus with diabetic chronic kidney disease; E03.9 Hypothyroidism, unspecified; E87.5 Hyperkalemia; K21.9 Gastro-esophageal reflux disease without esophagitis; E78.5 Hyperlipidemia, unspecified; K80.20 Calculus of gallbladder without cholecystitis without obstruction; Z20.822 Contact with and (suspected) exposure to COVID-19; K86.1 Other chronic pancreatitis; R31.9 Hematuria, unspecified; R94.4 Abnormal results of kidney function studies; I48.0 Paroxysmal atrial fibrillation; Z79.82 Long term (current) use of aspirin; Z82.49 Family history of ischemic heart disease and other diseases of the circulatory system; Z99.2 Dependence on renal dialysis; Z87.19 Personal history of other diseases of the digestive system
CPT/HCPCS: 36415; 71046; 74176; 74181; 76705; 80048; 80053; 80061; 81001; 82150; 82306; 82962; 83036; 83690; 83970; 84100; 84443; 85025; 85049; 86301; 87040; 87340; 87426; 90935; 93005; 93306; 96365; 96375; G0378; J0696; J1815; J2405; J3490

== ENCOUNTER 2022-06-03 18:59 | Inpatient (IN) | payer MEDICAID ==
[~2022-06-03] VITALS: Ht 149.9 cm; Wt 56.0 kg
[~2022-06-03 18:59] MED LIST changes: +ASPI-498 PO; +MET25T PO
[2022-06-03] MEDS ORDERED: cloNIDine HCL 0.1 MG TAB PO ONE (19:30)
[2022-06-03 19:50] LABS: Basophils # (auto) 0.1 10 ^3/uL (0-0.2); Eosinophils # (auto) 0.5 10 ^3/uL (0-0.8); Eosinophils % (auto) 6.2 % (0.0-7.0); Hematocrit 39.8 % (36.0-46.0); Hemoglobin 13.2 g/dL (12.2-16.2); Lymphocytes # (auto) 1.9 10 ^3/uL (0.4-5.4); Lymphocytes % (auto) 26.7 % (10.0-50.0); Mean Corpuscular Hemoglobin 30.8 pg (28.0-32.0); Mean Corpuscular Hgb Conc. 33.2 g/dL (32.0-36.0); Monocytes # (auto) 0.5 10 ^3/uL (0-1.3); Monocytes % (auto) 6.9 % (0.0-12.0); Neutrophils # (auto) 4.3 10 ^3/uL (1.6-8.6); Neutrophils % (auto) 59.2 % (37.0-80.0); Nucleated Red Blood Cells % 0.1 %; Red Blood Cells 4.28 10^6/uL (4.0-5.20); Red Cell Distribution Width 15.1 % (11.8-14.3); White Blood Cell 7.2 10^3/uL (4.4-10.8)
[2022-06-03 20:09] LABS: Albumin 3.6 g/dL (3.4-5.0); BUN/Creatinine Ratio 7.1; Calcium 11.1 mg/dL (8.5-10.1)
[2022-06-03 20:12] LABS: Bilirubin, Total 0.5 mg/dL (0.2-1.0); Total Protein 6.9 g/dL (6.4-8.2)
[2022-06-03] MEDS ORDERED: cloNIDine HCL 0.1 MG TAB PO PRN (21:45)
[2022-06-03] MEDS ORDERED: MORPHINE SULFATE INJ 2 MG/ml SYRG IV PRN (21:45)
[2022-06-03] MEDS ORDERED: ONDANSETRON HCL 4 MG/2 ML VIAL IV PRN (21:45)
[2022-06-03] MEDS ORDERED: HYDROcodone-ACET 5/325MG TAB PO PRN (21:45)
[2022-06-03] MEDS ORDERED: TEMAZEPAM 15 MG CAP PO PRN (21:45)
[2022-06-04] MEDS: METOPROLOL TARTRATE 25 MG TAB PO SCH ×2 (01:56→09:58)
[2022-06-04] MEDS: SUCRALFATE 1 GM/10 ML ORAL SUSP PO SCH ×3 (01:57→15:18)
[2022-06-04] MEDS: PANTOPRAZOLE 40 MG TAB PO SCH ×2 (01:58→09:57)
[2022-06-04 05:58] LABS: Basophils # (auto) 0.1 10 ^3/uL (0-0.2); Basophils % (auto) 0.9 % (0.0-2.0); Eosinophils # (auto) 0.4 10 ^3/uL (0-0.8); Eosinophils % (auto) 4.7 % (0.0-7.0); Hematocrit 37.8 % (36.0-46.0); Hemoglobin 12.7 g/dL (12.2-16.2); Lymphocytes # (auto) 1.8 10 ^3/uL (0.4-5.4); Lymphocytes % (auto) 22.2 % (10.0-50.0); Mean Corpuscular Hgb Conc. 33.5 g/dL (32.0-36.0); Mean Corpuscular Volume 92.6 fL (80.0-100.0); Monocytes # (auto) 0.6 10 ^3/uL (0-1.3); Neutrophils # (auto) 5.1 10 ^3/uL (1.6-8.6); Neutrophils % (auto) 64.2 % (37.0-80.0); Nucleated Red Blood Cells % 0.1 %; Red Blood Cells 4.09 10^6/uL (4.0-5.20); Red Cell Distribution Width 14.7 % (11.8-14.3); White Blood Cell 7.9 10^3/uL (4.4-10.8)
[2022-06-04 06:03] LABS: Potassium 4.2 mmol/L (3.5-5.1)
[2022-06-04 06:11] LABS: Albumin 3.6 g/dL (3.4-5.0); BUN/Creatinine Ratio 7.2; Bilirubin, Total 0.7 mg/dL (0.2-1.0); Calcium 9.6 mg/dL (8.5-10.1); Total Protein 6.7 g/dL (6.4-8.2)
[2022-06-04] MEDS ORDERED: LEVOTHYROXINE SODIUM 50 MCG TAB PO SCH (07:00)
[2022-06-04] MEDS: LISINOPRIL 10 MG TAB PO SCH ×2 (08:43→09:58)
[2022-06-04] MEDS ORDERED: LISINOPRIL 10 MG TAB PO SCH (10:00)
[2022-06-04] MEDS ORDERED: NIFEdipine ER 30 MG TAB PO SCH (10:00)
[2022-06-04 15:22] VITALS: BP 129/50
== END 2022-06-04 15:23 | disposition home or self-care (01) | DRG 282 ==
LOC: ER 19:01 → OVERFLOW 21:36
PROVIDERS: ADMIT Nurse Practitioner; ATTEND Internal Medicine
DX: K85.90 Acute pancreatitis without necrosis or infection, unspecified (principal); I12.0 Hypertensive chronic kidney disease with stage 5 chronic kidney disease or end stage renal disease; I16.0 Hypertensive urgency; N18.6 End stage renal disease; E78.5 Hyperlipidemia, unspecified; J98.11 Atelectasis; K86.2 Cyst of pancreas; K86.1 Other chronic pancreatitis; Z99.2 Dependence on renal dialysis; Z82.49 Family history of ischemic heart disease and other diseases of the circulatory system
CPT/HCPCS: 36415; 71045; 80053; 83690; 83880; 84484; 85025; 87426; 93005; 96374; 99291; G0378; J2405

== ENCOUNTER 2022-09-15 19:31 | Inpatient (IN) | payer MEDICAID ==
[~2022-09-15] VITALS: Ht 147.3 cm; Wt 58.1 kg
[~2022-09-15 19:31] MED LIST changes: +FOLI-119 PO; -FOLI1TAB6 PO; -LISI-716 PO; +LISI10TA34 PO; -SUCR1SUS10 PO; +SUCR1SUS26 PO
[2022-09-15] MEDS ORDERED: ONDANSETRON ODT 4 MG TAB PO ONE (20:15)
[2022-09-15] MEDS ORDERED: SODIUM CHLORIDE 0.9% 1,000 ML IV ONE (20:15)
[2022-09-15] MEDS ORDERED: HYDROcodone-ACET 10/325MG TAB PO ONE (20:15)
[2022-09-15 21:34] LABS: Urine Bacteria NONE SEEN /hpf (None Seen); Urine Blood TRACE /uL (Negative); Urine Specific Gravity 1.009 (1.001-1.035); Urine WBC 2 /hpf (0 - 5)
[2022-09-15 21:34] LABS: Basophils # (auto) 0 10 ^3/uL (0-0.2); Basophils % (auto) 0.4 % (0.0-2.0); Eosinophils # (auto) 0 10 ^3/uL (0-0.8); Eosinophils % (auto) 0.3 % (0.0-7.0); Hematocrit 37.5 % (36.0-46.0); Hemoglobin 12.6 g/dL (12.2-16.2); Lymphocytes # (auto) 0.6 10 ^3/uL (0.4-5.4); Lymphocytes % (auto) 8.6 % (10.0-50.0); Mean Corpuscular Hemoglobin 30.7 pg (28.0-32.0); Mean Corpuscular Hgb Conc. 33.5 g/dL (32.0-36.0); Mean Corpuscular Volume 91.6 fL (80.0-100.0); Monocytes # (auto) 0.3 10 ^3/uL (0-1.3); Monocytes % (auto) 4.6 % (0.0-12.0); Neutrophils # (auto) 5.6 10 ^3/uL (1.6-8.6); Neutrophils % (auto) 86.1 % (37.0-80.0); Nucleated Red Blood Cells % 0.1 %; Red Blood Cells 4.09 10^6/uL (4.0-5.20); White Blood Cell 6.5 10^3/uL (4.4-10.8)
[2022-09-15 21:42] LABS: Partial Thromboplastin Time 25.2 sec (24.6-33.4)
[2022-09-15 21:47] LABS: Albumin 3.8 g/dL (3.4-5.0); Anion Gap 8 (5-15); Blood Urea Nitrogen 34 mg/dL (7-18); Calcium 9.6 mg/dL (8.5-10.1); Carbon Dioxide 27 mmol/L (21-32); Chloride 104 mmol/L (98-107); Glucose 137 mg/dL (74-106); Magnesium 2.4 mg/dL (1.6-2.6); Potassium 4.1 mmol/L (3.5-5.1); Sodium 139 mmol/L (136-145)
[2022-09-15 21:52] LABS: Alanine Aminotransferase 22 U/L (13-56); Alkaline Phosphatase 211 U/L (45-117); Aspartate Aminotransferase 24 U/L (15-37); BUN/Creatinine Ratio 6.3 (10.0-20.0); Bilirubin, Total 0.5 mg/dL (0.2-1.0); GFR African American 10 mL/min; GFR Non-African American 8 mL/min; Total Protein 7.1 g/dL (6.4-8.2)
[2022-09-15 22:38] LABS: Lipase > 3000 U/L (73-393)
[2022-09-16] MEDS ORDERED: NITROGLYCERIN 0.4 MG SL TAB SL PRN
[2022-09-16] MEDS ORDERED: MORPHINE SULFATE INJ 2 MG/ml SYRG IV PRN
[2022-09-16] MEDS: HYDROcodone-ACET 5/325MG TAB PO PRN ×3 (01:55→22:41)
[2022-09-16] MEDS: ONDANSETRON HCL 4 MG/2 ML VIAL IV PRN ×2 (01:55→12:08)
[2022-09-16 05:25] LABS: Basophils # (auto) 0 10 ^3/uL (0-0.2); Basophils % (auto) 0.5 % (0.0-2.0); Eosinophils # (auto) 0 10 ^3/uL (0-0.8); Eosinophils % (auto) 0.7 % (0.0-7.0); Hematocrit 34.5 % (36.0-46.0); Hemoglobin 11.6 g/dL (12.2-16.2); Lymphocytes # (auto) 1.2 10 ^3/uL (0.4-5.4); Lymphocytes % (auto) 17.2 % (10.0-50.0); Mean Corpuscular Hemoglobin 30.6 pg (28.0-32.0); Mean Corpuscular Hgb Conc. 33.6 g/dL (32.0-36.0); Mean Corpuscular Volume 91.1 fL (80.0-100.0); Monocytes # (auto) 0.7 10 ^3/uL (0-1.3); Monocytes % (auto) 10.3 % (0.0-12.0); Neutrophils # (auto) 4.8 10 ^3/uL (1.6-8.6); Neutrophils % (auto) 71.3 % (37.0-80.0); Nucleated Red Blood Cells % 0.1 %; Red Blood Cells 3.79 10^6/uL (4.0-5.20); Red Cell Distribution Width 14.9 % (11.8-14.3); White Blood Cell 6.7 10^3/uL (4.4-10.8)
[2022-09-16 05:35] LABS: Albumin 3.4 g/dL (3.4-5.0); BUN/Creatinine Ratio 6.7 (10.0-20.0); Calcium 9.5 mg/dL (8.5-10.1); Potassium 4.1 mmol/L (3.5-5.1)
[2022-09-16 05:38] LABS: Bilirubin, Total 0.5 mg/dL (0.2-1.0)
[2022-09-16] MEDS: SODIUM CHLOR 0.9% PF (SALINE LOCK) 10ML VIAL/SYR IV SCH ×3 (06:06→22:00)
[2022-09-16] MEDS: hydrALAZINE HCL 20 MG/ML VL IV PRN ×2 (06:44→22:46)
[2022-09-16] MEDS: LEVOTHYROXINE SODIUM 50 MCG TAB PO SCH (06:45)
[2022-09-16] MEDS: SEVELAMER 800 MG TAB PO SCH ×3 (08:16→18:19)
[2022-09-16] MEDS: ASPirin 81 mg TAB PO SCH (09:59)
[2022-09-16] MEDS: FAMOTIDINE (10MG/ML) 2ML VL IV SCH ×2 (09:59→22:32)
[2022-09-16] MEDS: B-COMPLEX W/ C & FOLIC ACID(NEPHROVITE TAB) PO SCH (10:33)
[2022-09-16] MEDS: SODIUM CHLORIDE 0.9% 1,000 ML IV SCH (23:34)
[2022-09-17] MEDS: ACETAMINOPHEN 325 MG TAB PO PRN (02:01)
[2022-09-17] MEDS: HYDROcodone-ACET 5/325MG TAB PO PRN ×2 (04:42→11:28)
[2022-09-17] MEDS: SODIUM CHLOR 0.9% PF (SALINE LOCK) 10ML VIAL/SYR IV SCH ×2 (06:22→14:00)
[2022-09-17] MEDS ORDERED: SODIUM CHL 0.9% 1000 ML BAG XX ONE (07:00)
[2022-09-17] MEDS: LEVOTHYROXINE SODIUM 50 MCG TAB PO SCH (07:09)
[2022-09-17] MEDS: SEVELAMER 800 MG TAB PO SCH ×2 (08:00→11:29)
[2022-09-17] MEDS: GABAPENTIN 300 MG CAP PO PRN (08:31)
[2022-09-17] MEDS: SODIUM CHLORIDE 0.9% 1,000 ML IV SCH (09:00)
[2022-09-17 10:15] VITALS: BP 158/89
[2022-09-17] MEDS: hydrALAZINE HCL 20 MG/ML VL IV PRN (11:28)
[2022-09-17] MEDS: B-COMPLEX W/ C & FOLIC ACID(NEPHROVITE TAB) PO SCH (11:29)
[2022-09-17] MEDS: FAMOTIDINE (10MG/ML) 2ML VL IV SCH ×2 (11:29→23:03)
[2022-09-17] MEDS: ASPirin 81 mg TAB PO SCH (11:30)
[2022-09-17 12:00] VITALS: BP 190/94
[2022-09-17 16:00] VITALS: BP 158/85
[2022-09-17] MEDS ORDERED: MORPHINE SULFATE INJ 2 MG/ml SYRG IV PRN (16:00)
[2022-09-17] MEDS ORDERED: LABETALOL HCL 5 MG/ML 4ML SYRINGE IV PRN (16:00)
[2022-09-17 20:00] VITALS: BP 156/85
[2022-09-17 22:00] VITALS: BP 156/85
[2022-09-17] MEDS: DOCUSATE SOD 100 MG CAP PO PRN (23:03)
[2022-09-18] MEDS: SODIUM CHLOR 0.9% PF (SALINE LOCK) 10ML VIAL/SYR IV SCH ×4 (00:03→21:04)
[2022-09-18] MEDS: SODIUM CHLORIDE 0.9% 1,000 ML IV SCH ×3 (01:13→10:07)
[2022-09-18 05:00] VITALS: BP 146/79
[2022-09-18] MEDS: ACETAMINOPHEN 325 MG TAB PO PRN (05:30)
[2022-09-18 06:05] LABS: Basophils # (auto) 0 10 ^3/uL (0-0.2); Basophils % (auto) 0.1 % (0.0-2.0); Eosinophils # (auto) 0.1 10 ^3/uL (0-0.8); Eosinophils % (auto) 0.6 % (0.0-7.0); Hematocrit 32.3 % (36.0-46.0); Hemoglobin 11.1 g/dL (12.2-16.2); Lymphocytes # (auto) 0.6 10 ^3/uL (0.4-5.4); Mean Corpuscular Hemoglobin 30.9 pg (28.0-32.0); Mean Corpuscular Hgb Conc. 34.4 g/dL (32.0-36.0); Monocytes % (auto) 10.6 % (0.0-12.0); Neutrophils # (auto) 7.7 10 ^3/uL (1.6-8.6); Neutrophils % (auto) 82.7 % (37.0-80.0); Red Blood Cells 3.59 10^6/uL (4.0-5.20); Red Cell Distribution Width 14.7 % (11.8-14.3); White Blood Cell 9.3 10^3/uL (4.4-10.8)
[2022-09-18 06:10] LABS: Calcium 8.7 mg/dL (8.5-10.1); Potassium 4.1 mmol/L (3.5-5.1)
[2022-09-18] MEDS: LEVOTHYROXINE SODIUM 50 MCG TAB PO SCH (07:57)
[2022-09-18 08:00] VITALS: BP 118/76
[2022-09-18] MEDS: NIFEdipine ER 30 MG TAB PO SCH (10:00)
[2022-09-18] MEDS: B-COMPLEX W/ C & FOLIC ACID(NEPHROVITE TAB) PO SCH (10:08)
[2022-09-18] MEDS: ASPirin 81 mg TAB PO SCH (10:08)
[2022-09-18] MEDS: FAMOTIDINE (10MG/ML) 2ML VL IV SCH ×2 (10:09→21:04)
[2022-09-18] MEDS ORDERED: KETOROLAC TROMETH 30 MG/ML 1ML VIAL IV ONE (11:30)
[2022-09-18 12:00] VITALS: BP 159/91
[2022-09-18 16:00] VITALS: BP 111/76
[2022-09-18] MEDS: KETOROLAC TROMETH 30 MG/ML 1ML VIAL IV PRN (18:31)
[2022-09-18 20:00] VITALS: BP 144/83
[2022-09-18] MEDS: DOCUSATE SOD 100 MG CAP PO PRN (21:03)
[2022-09-18] MEDS: GABAPENTIN 300 MG CAP PO PRN (21:03)
[2022-09-18] MEDS: HYDROcodone-ACET 7.5/325MG TAB PO PRN (21:12)
[2022-09-18 22:00] VITALS: BP 144/83
[2022-09-19] MEDS: KETOROLAC TROMETH 30 MG/ML 1ML VIAL IV PRN ×2 (04:32→11:45)
[2022-09-19 05:00] VITALS: BP 130/78
[2022-09-19 06:35] LABS: Basophils # (auto) 0 10 ^3/uL (0-0.2); Basophils % (auto) 0.3 % (0.0-2.0); Eosinophils # (auto) 0.2 10 ^3/uL (0-0.8); Eosinophils % (auto) 2.6 % (0.0-7.0); Hemoglobin 11.2 g/dL (12.2-16.2); Lymphocytes # (auto) 0.9 10 ^3/uL (0.4-5.4); Lymphocytes % (auto) 9.4 % (10.0-50.0); Mean Corpuscular Hgb Conc. 33.8 g/dL (32.0-36.0); Mean Corpuscular Volume 91.8 fL (80.0-100.0); Monocytes # (auto) 0.8 10 ^3/uL (0-1.3); Monocytes % (auto) 7.9 % (0.0-12.0); Neutrophils # (auto) 7.6 10 ^3/uL (1.6-8.6); Neutrophils % (auto) 79.8 % (37.0-80.0); Potassium 4.6 mmol/L (3.5-5.1); Red Cell Distribution Width 15.3 % (11.8-14.3); White Blood Cell 9.5 10^3/uL (4.4-10.8)
[2022-09-19] MEDS: SODIUM CHLOR 0.9% PF (SALINE LOCK) 10ML VIAL/SYR IV SCH ×3 (06:44→21:54)
[2022-09-19 08:00] VITALS: BP 124/63
[2022-09-19 09:00] VITALS: BP 124/63
[2022-09-19] MEDS: FAMOTIDINE (10MG/ML) 2ML VL IV SCH ×2 (11:19→21:54)
[2022-09-19] MEDS: LEVOTHYROXINE SODIUM 50 MCG TAB PO SCH (11:19)
[2022-09-19] MEDS: ASPirin 81 mg TAB PO SCH (11:20)
[2022-09-19] MEDS: B-COMPLEX W/ C & FOLIC ACID(NEPHROVITE TAB) PO SCH (11:20)
[2022-09-19] MEDS: NIFEdipine ER 30 MG TAB PO SCH (11:20)
[2022-09-19 13:00] VITALS: BP 101/49
[2022-09-19 17:04] VITALS: BP 147/72
[2022-09-19] MEDS: GABAPENTIN 300 MG CAP PO PRN (17:32)
[2022-09-19] MEDS: DOCUSATE SOD 100 MG CAP PO PRN (17:32)
[2022-09-19] MEDS: PANCREATIC ENZYMES 4200 UNIT CAP PO SCH (18:28)
[2022-09-19 22:00] VITALS: BP 117/69
[2022-09-19] MEDS: HYDROcodone-ACET 7.5/325MG TAB PO PRN (22:00)
[2022-09-20] VITALS (7 sets, daily range): BP systolic 107–148; BP diastolic 4–83
[2022-09-20 06:14] LABS: Basophils # (auto) 0 10 ^3/uL (0-0.2); Basophils % (auto) 0.4 % (0.0-2.0); Eosinophils # (auto) 0.2 10 ^3/uL (0-0.8); Eosinophils % (auto) 2.2 % (0.0-7.0); Hematocrit 33.6 % (36.0-46.0); Hemoglobin 11.4 g/dL (12.2-16.2); Lymphocytes % (auto) 13.6 % (10.0-50.0); Mean Corpuscular Hemoglobin 30.7 pg (28.0-32.0); Mean Corpuscular Hgb Conc. 33.9 g/dL (32.0-36.0); Mean Corpuscular Volume 90.5 fL (80.0-100.0); Monocytes # (auto) 0.7 10 ^3/uL (0-1.3); Monocytes % (auto) 9.5 % (0.0-12.0); Neutrophils # (auto) 5.4 10 ^3/uL (1.6-8.6); Neutrophils % (auto) 74.3 % (37.0-80.0); Red Blood Cells 3.72 10^6/uL (4.0-5.20); Red Cell Distribution Width 15.2 % (11.8-14.3); White Blood Cell 7.3 10^3/uL (4.4-10.8)
[2022-09-20] MEDS: SODIUM CHLOR 0.9% PF (SALINE LOCK) 10ML VIAL/SYR IV SCH ×3 (06:18→21:24)
[2022-09-20] MEDS: LEVOTHYROXINE SODIUM 50 MCG TAB PO SCH (06:19)
[2022-09-20] MEDS: HYDROcodone-ACET 7.5/325MG TAB PO PRN ×3 (06:19→18:28)
[2022-09-20 06:37] LABS: Anion Gap 15 (5-15); BUN/Creatinine Ratio 7.5 (10.0-20.0); Blood Urea Nitrogen 44 mg/dL (7-18); Calcium 8.5 mg/dL (8.5-10.1); Carbon Dioxide 23 mmol/L (21-32); Chloride 98 mmol/L (98-107); GFR African American 9 mL/min; GFR Non-African American 8 mL/min; Glucose 89 mg/dL (74-106); Lipase 897 U/L (73-393); Sodium 136 mmol/L (136-145)
[2022-09-20] MEDS: PANCREATIC ENZYMES 4200 UNIT CAP PO SCH ×3 (08:11→18:24)
[2022-09-20] MEDS: FAMOTIDINE (10MG/ML) 2ML VL IV SCH ×2 (08:47→21:18)
[2022-09-20] MEDS: ASPirin 81 mg TAB PO SCH (08:47)
[2022-09-20] MEDS: B-COMPLEX W/ C & FOLIC ACID(NEPHROVITE TAB) PO SCH (08:47)
[2022-09-20] MEDS: NIFEdipine ER 30 MG TAB PO SCH (08:48)
[2022-09-20] MEDS: GABAPENTIN 300 MG CAP PO PRN (13:54)
[2022-09-20 15:53] LABS: Calcium 8.5 mg/dL (8.5-10.1); Potassium 3.6 mmol/L (3.5-5.1)
[2022-09-20 15:55] LABS: BUN/Creatinine Ratio 7.6 (10.0-20.0)
[2022-09-20] MEDS: CELECOXIB 100 MG CAP PO SCH (21:19)
[2022-09-21] MEDS: HYDROcodone-ACET 7.5/325MG TAB PO PRN ×3 (04:41→23:08)
[2022-09-21 05:00] VITALS: BP 117/67
[2022-09-21 05:59] LABS: Calcium 9.2 mg/dL (8.5-10.1); Potassium 3.9 mmol/L (3.5-5.1)
[2022-09-21 06:11] LABS: BUN/Creatinine Ratio 7.3 (10.0-20.0)
[2022-09-21] MEDS: LEVOTHYROXINE SODIUM 50 MCG TAB PO SCH (06:11)
[2022-09-21] MEDS: SODIUM CHLOR 0.9% PF (SALINE LOCK) 10ML VIAL/SYR IV SCH ×3 (06:12→22:03)
[2022-09-21 08:00] VITALS: BP 124/63
[2022-09-21] MEDS: B-COMPLEX W/ C & FOLIC ACID(NEPHROVITE TAB) PO SCH (10:05)
[2022-09-21] MEDS: ASPirin 81 mg TAB PO SCH (10:05)
[2022-09-21] MEDS: PANCREATIC ENZYMES 4200 UNIT CAP PO SCH ×3 (10:05→18:19)
[2022-09-21] MEDS: CELECOXIB 100 MG CAP PO SCH ×2 (10:06→22:02)
[2022-09-21] MEDS: FAMOTIDINE (10MG/ML) 2ML VL IV SCH ×2 (10:07→22:02)
[2022-09-21] MEDS: NIFEdipine ER 30 MG TAB PO SCH (10:07)
[2022-09-21] MEDS: GABAPENTIN 300 MG CAP PO PRN ×2 (10:15→18:19)
[2022-09-21 12:20] VITALS: BP 116/62
[2022-09-21 16:20] VITALS: BP 113/69
[2022-09-21 20:00] VITALS: BP 124/63
[2022-09-21 22:00] VITALS: BP 118/67
[2022-09-22 05:00] VITALS: BP 100/46
[2022-09-22] MEDS: LEVOTHYROXINE SODIUM 50 MCG TAB PO SCH (06:12)
[2022-09-22] MEDS: SODIUM CHLOR 0.9% PF (SALINE LOCK) 10ML VIAL/SYR IV SCH ×3 (06:12→22:05)
[2022-09-22 07:01] LABS: Basophils # (auto) 0 10 ^3/uL (0-0.2); Basophils % (auto) 0.3 % (0.0-2.0); Eosinophils # (auto) 0.3 10 ^3/uL (0-0.8); Eosinophils % (auto) 2.8 % (0.0-7.0); Hematocrit 34.7 % (36.0-46.0); Hemoglobin 12.1 g/dL (12.2-16.2); Lymphocytes # (auto) 1.1 10 ^3/uL (0.4-5.4); Lymphocytes % (auto) 11.7 % (10.0-50.0); Mean Corpuscular Hemoglobin 31.4 pg (28.0-32.0); Mean Corpuscular Volume 89.5 fL (80.0-100.0); Monocytes # (auto) 1.2 10 ^3/uL (0-1.3); Monocytes % (auto) 13.1 % (0.0-12.0); Neutrophils # (auto) 6.7 10 ^3/uL (1.6-8.6); Neutrophils % (auto) 72.1 % (37.0-80.0); Nucleated Red Blood Cells % 0.5 %; Red Blood Cells 3.87 10^6/uL (4.0-5.20); Red Cell Distribution Width 15.2 % (11.8-14.3); White Blood Cell 9.3 10^3/uL (4.4-10.8)
[2022-09-22 07:39] LABS: Calcium 9.5 mg/dL (8.5-10.1); Potassium 4.4 mmol/L (3.5-5.1)
[2022-09-22 07:41] LABS: BUN/Creatinine Ratio 7.9 (10.0-20.0)
[2022-09-22] MEDS: FAMOTIDINE (10MG/ML) 2ML VL IV SCH (08:36)
[2022-09-22] MEDS: PANCREATIC ENZYMES 4200 UNIT CAP PO SCH ×3 (08:36→17:09)
[2022-09-22] MEDS: B-COMPLEX W/ C & FOLIC ACID(NEPHROVITE TAB) PO SCH (08:37)
[2022-09-22] MEDS: NIFEdipine ER 30 MG TAB PO SCH (08:37)
[2022-09-22] MEDS: ASPirin 81 mg TAB PO SCH (08:37)
[2022-09-22] MEDS: CELECOXIB 100 MG CAP PO SCH (08:38)
[2022-09-22 09:06] VITALS: BP 111/65
[2022-09-22] MEDS ORDERED: IOHEXOL 350 MG/ML 100ML IJ ONE (10:32)
[2022-09-22 12:47] VITALS: BP 99/63
[2022-09-22 17:17] VITALS: BP 109/56
[2022-09-22 22:00] VITALS: BP 123/61
[2022-09-22] MEDS: TROLAMINE SALICYLATE 10% TOP CREAM TOP SCH (22:04)
[2022-09-22] MEDS: HYDROcodone-ACET 7.5/325MG TAB PO PRN (22:05)
[2022-09-22] MEDS: GABAPENTIN 300 MG CAP PO SCH (22:05)
[2022-09-23 05:00] VITALS: BP 110/64
[2022-09-23] MEDS: DOCUSATE SOD 100 MG CAP PO PRN ×2 (06:27→21:38)
[2022-09-23] MEDS: LEVOTHYROXINE SODIUM 50 MCG TAB PO SCH (06:28)
[2022-09-23] MEDS: SODIUM CHLOR 0.9% PF (SALINE LOCK) 10ML VIAL/SYR IV SCH ×3 (06:28→21:39)
[2022-09-23 06:32] LABS: Basophils # (auto) 0 10 ^3/uL (0-0.2); Basophils % (auto) 0.4 % (0.0-2.0); Eosinophils # (auto) 0.3 10 ^3/uL (0-0.8); Eosinophils % (auto) 2.7 % (0.0-7.0); Hematocrit 30.5 % (36.0-46.0); Hemoglobin 10.5 g/dL (12.2-16.2); Lymphocytes # (auto) 0.8 10 ^3/uL (0.4-5.4); Lymphocytes % (auto) 7.4 % (10.0-50.0); Mean Corpuscular Hemoglobin 31.1 pg (28.0-32.0); Mean Corpuscular Hgb Conc. 34.3 g/dL (32.0-36.0); Mean Corpuscular Volume 90.6 fL (80.0-100.0); Monocytes # (auto) 1.3 10 ^3/uL (0-1.3); Monocytes % (auto) 12.8 % (0.0-12.0); Neutrophils # (auto) 7.9 10 ^3/uL (1.6-8.6); Neutrophils % (auto) 76.7 % (37.0-80.0); Nucleated Red Blood Cells % 0.1 %; Red Blood Cells 3.37 10^6/uL (4.0-5.20); Red Cell Distribution Width 15.2 % (11.8-14.3); White Blood Cell 10.3 10^3/uL (4.4-10.8)
[2022-09-23 07:11] LABS: Calcium 8.8 mg/dL (8.5-10.1); Potassium 4.7 mmol/L (3.5-5.1)
[2022-09-23 07:18] LABS: BUN/Creatinine Ratio 7.9 (10.0-20.0)
[2022-09-23 08:00] VITALS: BP 107/51
[2022-09-23] MEDS: ASPirin 81 mg TAB PO SCH (08:42)
[2022-09-23] MEDS: PANCREATIC ENZYMES 4200 UNIT CAP PO SCH ×3 (08:42→17:51)
[2022-09-23] MEDS: B-COMPLEX W/ C & FOLIC ACID(NEPHROVITE TAB) PO SCH (09:54)
[2022-09-23] MEDS: NIFEdipine ER 30 MG TAB PO SCH (09:54)
[2022-09-23] MEDS: CELECOXIB 100 MG CAP PO SCH (09:54)
[2022-09-23] MEDS: TROLAMINE SALICYLATE 10% TOP CREAM TOP SCH ×2 (09:54→21:39)
[2022-09-23] MEDS ORDERED: SODIUM CHL 0.9% 1000 ML BAG XX ONE (10:00)
[2022-09-23 12:00] VITALS: BP 101/57
[2022-09-23 17:00] VITALS: BP 110/61
[2022-09-23] MEDS ORDERED: EPOETIN ALFA-EPBX 10,000 UNIT/1ML VIAL SC ONE (21:00)
[2022-09-23] MEDS: GABAPENTIN 300 MG CAP PO SCH (21:38)
[2022-09-23] MEDS: HYDROcodone-ACET 7.5/325MG TAB PO PRN (21:39)
[2022-09-23 22:00] VITALS: BP 121/62
[2022-09-23] MEDS ORDERED: HALOPERIDOL LACTATE 5 MG/ML INJ VIAL IM PRN (22:45)
[2022-09-23] MEDS ORDERED: LORazepam 2MG/ML-1ML VIAL IV PRN (22:45)
[2022-09-23 23:42] LABS: Cholesterol 90 mg/dL (< 200); Triglycerides 97 mg/dL (< 150)
[2022-09-23 23:45] LABS: HDL Cholesterol 27 mg/dL (40-59); LDL Cholesterol 42 mg/dL (< 100)
[2022-09-24 05:00] VITALS: BP 115/65
[2022-09-24 06:12] LABS: Basophils # (auto) 0 10 ^3/uL (0-0.2); Basophils % (auto) 0.5 % (0.0-2.0); Eosinophils # (auto) 0.3 10 ^3/uL (0-0.8); Eosinophils % (auto) 3.1 % (0.0-7.0); Hemoglobin 10.1 g/dL (12.2-16.2); Lymphocytes # (auto) 0.9 10 ^3/uL (0.4-5.4); Lymphocytes % (auto) 10.2 % (10.0-50.0); Mean Corpuscular Hemoglobin 30.3 pg (28.0-32.0); Mean Corpuscular Hgb Conc. 33.5 g/dL (32.0-36.0); Mean Corpuscular Volume 90.2 fL (80.0-100.0); Monocytes # (auto) 1.2 10 ^3/uL (0-1.3); Monocytes % (auto) 13.5 % (0.0-12.0); Neutrophils # (auto) 6.3 10 ^3/uL (1.6-8.6); Neutrophils % (auto) 72.7 % (37.0-80.0); Nucleated Red Blood Cells % 0.1 %; Red Blood Cells 3.32 10^6/uL (4.0-5.20); Red Cell Distribution Width 15.3 % (11.8-14.3); White Blood Cell 8.6 10^3/uL (4.4-10.8)
[2022-09-24] MEDS: SODIUM CHLOR 0.9% PF (SALINE LOCK) 10ML VIAL/SYR IV SCH ×3 (06:15→22:04)
[2022-09-24] MEDS: LEVOTHYROXINE SODIUM 50 MCG TAB PO SCH (06:51)
[2022-09-24] MEDS: CELECOXIB 100 MG CAP PO SCH (08:58)
[2022-09-24] MEDS: PANCREATIC ENZYMES 4200 UNIT CAP PO SCH ×3 (08:59→17:58)
[2022-09-24] MEDS: ASPirin 81 mg TAB PO SCH (08:59)
[2022-09-24 09:00] VITALS: BP 123/67
[2022-09-24] MEDS: NIFEdipine ER 30 MG TAB PO SCH (09:00)
[2022-09-24] MEDS: B-COMPLEX W/ C & FOLIC ACID(NEPHROVITE TAB) PO SCH (09:00)
[2022-09-24] MEDS: HYDROcodone-ACET 7.5/325MG TAB PO PRN (09:00)
[2022-09-24] MEDS: FAMOTIDINE (10MG/ML) 2ML VL IV SCH (09:00)
[2022-09-24 09:04] LABS: Potassium 4.3 mmol/L (3.5-5.1)
[2022-09-24 09:16] LABS: BUN/Creatinine Ratio 7.4 (10.0-20.0); Calcium 9.1 mg/dL (8.5-10.1)
[2022-09-24] MEDS ORDERED: cefTRIAXone 1GM/50ML D5W 50 ML IV ONE (11:00)
[2022-09-24] MEDS ORDERED: SENNA 8.6 MG TAB PO ONE (11:00)
[2022-09-24] MEDS ORDERED: DOXYCYCLINE 100MG/250ML 250 ML IV ONE (11:00)
[2022-09-24] MEDS: TROLAMINE SALICYLATE 10% TOP CREAM TOP SCH ×2 (11:16→22:09)
[2022-09-24 14:38] LABS: Folate (Folic Acid) > 24.00 ng/mL (5.38-24)
[2022-09-24] MEDS: GABAPENTIN 300 MG CAP PO SCH (22:04)
[2022-09-24] MEDS: SENNA 8.6 MG TAB PO SCH (22:04)
[2022-09-24] MEDS: DOXYCYCLINE 100MG/250ML 250 ML IV SCH (22:04)
[2022-09-24 22:23] VITALS: BP 135/64
[2022-09-25 05:00] VITALS: BP 128/63
[2022-09-25] MEDS: ACETAMINOPHEN 325 MG TAB PO PRN ×2 (05:06→20:37)
[2022-09-25 05:25] LABS: Urine Bacteria FEW /hpf (None Seen); Urine Blood 1+ /uL (Negative); Urine Specific Gravity 1.016 (1.001-1.035); Urine WBC 2 /hpf (0 - 5)
[2022-09-25 05:56] LABS: Basophils # (auto) 0 10 ^3/uL (0-0.2); Basophils % (auto) 0.3 % (0.0-2.0); Eosinophils # (auto) 0.2 10 ^3/uL (0-0.8); Hematocrit 28.5 % (36.0-46.0); Hemoglobin 9.8 g/dL (12.2-16.2); Lymphocytes # (auto) 0.6 10 ^3/uL (0.4-5.4); Lymphocytes % (auto) 7.2 % (10.0-50.0); Mean Corpuscular Hemoglobin 30.7 pg (28.0-32.0); Mean Corpuscular Hgb Conc. 34.4 g/dL (32.0-36.0); Mean Corpuscular Volume 89.3 fL (80.0-100.0); Neutrophils # (auto) 6.3 10 ^3/uL (1.6-8.6); Neutrophils % (auto) 77.5 % (37.0-80.0); Nucleated Red Blood Cells % 0.2 %; Red Blood Cells 3.19 10^6/uL (4.0-5.20); Red Cell Distribution Width 14.9 % (11.8-14.3); White Blood Cell 8.1 10^3/uL (4.4-10.8)
[2022-09-25] MEDS: SODIUM CHLOR 0.9% PF (SALINE LOCK) 10ML VIAL/SYR IV SCH ×3 (06:00→22:04)
[2022-09-25 06:14] LABS: Calcium 9.2 mg/dL (8.5-10.1); Potassium 4.3 mmol/L (3.5-5.1)
[2022-09-25] MEDS: LEVOTHYROXINE SODIUM 50 MCG TAB PO SCH (06:34)
[2022-09-25] MEDS ORDERED: SODIUM CHL 0.9% 1000 ML BAG XX ONE (07:00)
[2022-09-25 08:15] VITALS: BP 117/63
[2022-09-25 09:02] VITALS: BP 117/63
[2022-09-25] MEDS: cefTRIAXone 1GM/50ML D5W 50 ML IV SCH (09:10)
[2022-09-25] MEDS: PANCREATIC ENZYMES 4200 UNIT CAP PO SCH ×3 (09:10→18:21)
[2022-09-25] MEDS: B-COMPLEX W/ C & FOLIC ACID(NEPHROVITE TAB) PO SCH (10:09)
[2022-09-25] MEDS: ASPirin 81 mg TAB PO SCH (10:09)
[2022-09-25] MEDS: NIFEdipine ER 30 MG TAB PO SCH (10:09)
[2022-09-25] MEDS: CELECOXIB 100 MG CAP PO SCH (10:09)
[2022-09-25] MEDS: TROLAMINE SALICYLATE 10% TOP CREAM TOP SCH ×2 (10:10→21:49)
[2022-09-25] MEDS: DOXYCYCLINE 100MG/250ML 250 ML IV SCH ×2 (11:47→22:35)
[2022-09-25 13:00] VITALS: BP 122/63
[2022-09-25 17:00] VITALS: BP 143/69
[2022-09-25] MEDS ORDERED: EPOETIN ALFA-EPBX 10,000 UNIT/1ML VIAL SC ONE (21:00)
[2022-09-25] MEDS: GABAPENTIN 300 MG CAP PO SCH (21:47)
[2022-09-25] MEDS: SENNA 8.6 MG TAB PO SCH (21:47)
[2022-09-25 22:00] VITALS: BP 111/60
[2022-09-26 05:00] VITALS: BP 108/50
[2022-09-26] MEDS: LEVOTHYROXINE SODIUM 50 MCG TAB PO SCH (06:10)
[2022-09-26] MEDS: SODIUM CHLOR 0.9% PF (SALINE LOCK) 10ML VIAL/SYR IV SCH ×3 (06:12→21:20)
[2022-09-26 06:39] LABS: BUN/Creatinine Ratio 7.2 (10.0-20.0); Calcium 9.1 mg/dL (8.5-10.1); Potassium 3.5 mmol/L (3.5-5.1)
[2022-09-26 07:03] LABS: Basophils # (auto) 0 10 ^3/uL (0-0.2); Basophils % (auto) 0.4 % (0.0-2.0); Eosinophils # (auto) 0.2 10 ^3/uL (0-0.8); Eosinophils % (auto) 2.4 % (0.0-7.0); Hematocrit 27.7 % (36.0-46.0); Hemoglobin 9.3 g/dL (12.2-16.2); Lymphocytes # (auto) 0.9 10 ^3/uL (0.4-5.4); Lymphocytes % (auto) 11.4 % (10.0-50.0); Mean Corpuscular Hemoglobin 30.1 pg (28.0-32.0); Mean Corpuscular Hgb Conc. 33.6 g/dL (32.0-36.0); Mean Corpuscular Volume 89.7 fL (80.0-100.0); Monocytes # (auto) 0.8 10 ^3/uL (0-1.3); Monocytes % (auto) 10.9 % (0.0-12.0); Neutrophils # (auto) 5.7 10 ^3/uL (1.6-8.6); Neutrophils % (auto) 74.9 % (37.0-80.0); Red Blood Cells 3.08 10^6/uL (4.0-5.20); White Blood Cell 7.6 10^3/uL (4.4-10.8)
[2022-09-26 08:10] VITALS: BP 118/59
[2022-09-26] MEDS: PANCREATIC ENZYMES 4200 UNIT CAP PO SCH ×3 (08:26→18:07)
[2022-09-26] MEDS: cefTRIAXone 1GM/50ML D5W 50 ML IV SCH (08:27)
[2022-09-26 09:00] VITALS: BP 118/59
[2022-09-26] MEDS: ASPirin 81 mg TAB PO SCH (10:30)
[2022-09-26] MEDS: CELECOXIB 100 MG CAP PO SCH (10:30)
[2022-09-26] MEDS: B-COMPLEX W/ C & FOLIC ACID(NEPHROVITE TAB) PO SCH (10:30)
[2022-09-26] MEDS: FAMOTIDINE (10MG/ML) 2ML VL IV SCH (10:30)
[2022-09-26] MEDS: NIFEdipine ER 30 MG TAB PO SCH (10:31)
[2022-09-26] MEDS: TROLAMINE SALICYLATE 10% TOP CREAM TOP SCH ×2 (10:31→21:21)
[2022-09-26] MEDS: DOXYCYCLINE 100MG/250ML 250 ML IV SCH (11:52)
[2022-09-26 14:18] VITALS: BP 128/66
[2022-09-26] MEDS: ACETAMINOPHEN 325 MG TAB PO PRN (15:35)
[2022-09-26 17:37] VITALS: BP 126/64
[2022-09-26] MEDS: GABAPENTIN 300 MG CAP PO SCH (21:20)
[2022-09-26] MEDS: SENNA 8.6 MG TAB PO SCH (21:21)
[2022-09-27] MEDS: DOXYCYCLINE 100MG/250ML 250 ML IV SCH ×2 (01:29→11:00)
[2022-09-27 05:00] VITALS: BP 144/71
[2022-09-27 06:08] LABS: Basophils # (auto) 0 10 ^3/uL (0-0.2); Basophils % (auto) 0.4 % (0.0-2.0); Eosinophils # (auto) 0.3 10 ^3/uL (0-0.8); Eosinophils % (auto) 2.9 % (0.0-7.0); Hematocrit 27.9 % (36.0-46.0); Hemoglobin 9.5 g/dL (12.2-16.2); Lymphocytes # (auto) 0.8 10 ^3/uL (0.4-5.4); Lymphocytes % (auto) 7.9 % (10.0-50.0); Mean Corpuscular Hemoglobin 30.6 pg (28.0-32.0); Mean Corpuscular Hgb Conc. 34.1 g/dL (32.0-36.0); Mean Corpuscular Volume 89.8 fL (80.0-100.0); Monocytes # (auto) 0.9 10 ^3/uL (0-1.3); Monocytes % (auto) 9.8 % (0.0-12.0); Neutrophils # (auto) 7.6 10 ^3/uL (1.6-8.6); Red Blood Cells 3.11 10^6/uL (4.0-5.20); Red Cell Distribution Width 14.8 % (11.8-14.3); White Blood Cell 9.6 10^3/uL (4.4-10.8)
[2022-09-27] MEDS: SODIUM CHLOR 0.9% PF (SALINE LOCK) 10ML VIAL/SYR IV SCH ×3 (06:16→22:46)
[2022-09-27] MEDS: LEVOTHYROXINE SODIUM 50 MCG TAB PO SCH (06:16)
[2022-09-27 06:20] LABS: BUN/Creatinine Ratio 7.8 (10.0-20.0); Calcium 9.2 mg/dL (8.5-10.1); Potassium 3.7 mmol/L (3.5-5.1)
[2022-09-27] MEDS: ACETAMINOPHEN 325 MG TAB PO PRN ×2 (06:54→17:19)
[2022-09-27] MEDS ORDERED: SODIUM CHL 0.9% 1000 ML BAG XX ONE (07:00)
[2022-09-27] MEDS ORDERED: KETOROLAC TROMETH 30 MG/ML 1ML VIAL IV ONE (07:00)
[2022-09-27] MEDS: PANCREATIC ENZYMES 4200 UNIT CAP PO SCH ×3 (08:00→18:00)
[2022-09-27 09:12] VITALS: BP 137/77
[2022-09-27] MEDS: CELECOXIB 100 MG CAP PO SCH (09:30)
[2022-09-27] MEDS: cefTRIAXone 1GM/50ML D5W 50 ML IV SCH (09:30)
[2022-09-27] MEDS: B-COMPLEX W/ C & FOLIC ACID(NEPHROVITE TAB) PO SCH (09:30)
[2022-09-27] MEDS: ASPirin 81 mg TAB PO SCH (09:30)
[2022-09-27] MEDS: TROLAMINE SALICYLATE 10% TOP CREAM TOP SCH ×2 (09:31→22:44)
[2022-09-27] MEDS: NIFEdipine ER 30 MG TAB PO SCH (10:00)
[2022-09-27 13:12] VITALS: BP 135/53
[2022-09-27] MEDS ORDERED: KETOROLAC TROMETH 30 MG/ML 1ML VIAL IV PRN (17:00)
[2022-09-27 17:17] VITALS: BP 127/58
[2022-09-27] MEDS ORDERED: EPOETIN ALFA-EPBX 10,000 UNIT/1ML VIAL SC ONE (21:00)
[2022-09-27 22:00] VITALS: BP 121/70
[2022-09-27] MEDS: SENNA 8.6 MG TAB PO SCH (22:00)
[2022-09-27] MEDS: GABAPENTIN 300 MG CAP PO SCH (22:43)
[2022-09-28 05:00] VITALS: BP 140/64
[2022-09-28 05:34] LABS: Basophils # (auto) 0.1 10 ^3/uL (0-0.2); Basophils % (auto) 0.7 % (0.0-2.0); Eosinophils # (auto) 0.3 10 ^3/uL (0-0.8); Eosinophils % (auto) 3.2 % (0.0-7.0); Hematocrit 27.7 % (36.0-46.0); Hemoglobin 9.5 g/dL (12.2-16.2); Lymphocytes % (auto) 11.6 % (10.0-50.0); Mean Corpuscular Hemoglobin 30.7 pg (28.0-32.0); Mean Corpuscular Hgb Conc. 34.4 g/dL (32.0-36.0); Mean Corpuscular Volume 89.3 fL (80.0-100.0); Monocytes # (auto) 0.8 10 ^3/uL (0-1.3); Monocytes % (auto) 9.4 % (0.0-12.0); Neutrophils # (auto) 6.7 10 ^3/uL (1.6-8.6); Neutrophils % (auto) 75.1 % (37.0-80.0); Nucleated Red Blood Cells % 0.1 %; Red Cell Distribution Width 15.1 % (11.8-14.3); White Blood Cell 8.9 10^3/uL (4.4-10.8)
[2022-09-28 05:49] LABS: BUN/Creatinine Ratio 7.3 (10.0-20.0); Calcium 9.3 mg/dL (8.5-10.1); Potassium 3.6 mmol/L (3.5-5.1)
[2022-09-28] MEDS: ACETAMINOPHEN 325 MG TAB PO PRN ×3 (05:55→22:08)
[2022-09-28] MEDS: SODIUM CHLOR 0.9% PF (SALINE LOCK) 10ML VIAL/SYR IV SCH ×3 (05:56→21:57)
[2022-09-28] MEDS: LEVOTHYROXINE SODIUM 50 MCG TAB PO SCH (07:09)
[2022-09-28 09:00] VITALS: BP 129/67
[2022-09-28] MEDS: B-COMPLEX W/ C & FOLIC ACID(NEPHROVITE TAB) PO SCH (09:41)
[2022-09-28] MEDS: CELECOXIB 100 MG CAP PO SCH (09:41)
[2022-09-28] MEDS: ASPirin 81 mg TAB PO SCH (09:41)
[2022-09-28] MEDS: FAMOTIDINE (10MG/ML) 2ML VL IV SCH (09:41)
[2022-09-28] MEDS: NIFEdipine ER 30 MG TAB PO SCH (09:42)
[2022-09-28] MEDS: PANCREATIC ENZYMES 4200 UNIT CAP PO SCH ×3 (09:43→17:27)
[2022-09-28] MEDS: TROLAMINE SALICYLATE 10% TOP CREAM TOP SCH ×2 (09:43→21:58)
[2022-09-28] MEDS ORDERED: LIDOCAINE 1% HCL (LOCAL ANESTH.) INJ 20ML MDV ID ONE (10:00)
[2022-09-28] MEDS ORDERED: LIDOCAINE 2% (LOCAL ANESTH.) PF 5ml SDV IJ ONE (12:30)
[2022-09-28 13:00] VITALS: BP 133/72
[2022-09-28 16:31] VITALS: BP 128/66
[2022-09-28 21:30] VITALS: BP 122/71
[2022-09-28] MEDS: GABAPENTIN 300 MG CAP PO SCH (21:56)
[2022-09-28] MEDS: SENNA 8.6 MG TAB PO SCH (22:00)
[2022-09-29 05:00] VITALS: BP 124/70
[2022-09-29] MEDS: LEVOTHYROXINE SODIUM 50 MCG TAB PO SCH (06:24)
[2022-09-29] MEDS: ACETAMINOPHEN 325 MG TAB PO PRN ×3 (06:24→22:33)
[2022-09-29] MEDS: SODIUM CHLOR 0.9% PF (SALINE LOCK) 10ML VIAL/SYR IV SCH ×3 (06:24→22:32)
[2022-09-29 06:52] LABS: BUN/Creatinine Ratio 8.4 (10.0-20.0); Basophils # (auto) 0.1 10 ^3/uL (0-0.2); Basophils % (auto) 0.5 % (0.0-2.0); Calcium 9.1 mg/dL (8.5-10.1); Eosinophils # (auto) 0.3 10 ^3/uL (0-0.8); Eosinophils % (auto) 2.9 % (0.0-7.0); Hematocrit 28.4 % (36.0-46.0); Hemoglobin 9.8 g/dL (12.2-16.2); Lymphocytes # (auto) 1.1 10 ^3/uL (0.4-5.4); Lymphocytes % (auto) 10.5 % (10.0-50.0); Mean Corpuscular Hemoglobin 30.9 pg (28.0-32.0); Mean Corpuscular Hgb Conc. 34.6 g/dL (32.0-36.0); Mean Corpuscular Volume 89.3 fL (80.0-100.0); Monocytes # (auto) 0.9 10 ^3/uL (0-1.3); Monocytes % (auto) 8.8 % (0.0-12.0); Neutrophils # (auto) 7.9 10 ^3/uL (1.6-8.6); Neutrophils % (auto) 77.3 % (37.0-80.0); Nucleated Red Blood Cells % 0.1 %; Potassium 3.9 mmol/L (3.5-5.1); Red Blood Cells 3.19 10^6/uL (4.0-5.20); Red Cell Distribution Width 15.1 % (11.8-14.3); White Blood Cell 10.2 10^3/uL (4.4-10.8)
[2022-09-29] MEDS ORDERED: SODIUM CHL 0.9% 1000 ML BAG XX ONE (07:00)
[2022-09-29 09:00] VITALS: BP 128/65
[2022-09-29] MEDS: PANCREATIC ENZYMES 4200 UNIT CAP PO SCH ×3 (09:07→18:05)
[2022-09-29] MEDS: CELECOXIB 100 MG CAP PO SCH (09:07)
[2022-09-29] MEDS: TROLAMINE SALICYLATE 10% TOP CREAM TOP SCH ×2 (09:17→22:00)
[2022-09-29] MEDS: NIFEdipine ER 30 MG TAB PO SCH (10:00)
[2022-09-29] MEDS: B-COMPLEX W/ C & FOLIC ACID(NEPHROVITE TAB) PO SCH (10:00)
[2022-09-29] MEDS: ASPirin 81 mg TAB PO SCH (10:00)
[2022-09-29 13:00] VITALS: BP 128/64
[2022-09-29 17:00] VITALS: BP 130/71
[2022-09-29] MEDS ORDERED: EPOETIN ALFA-EPBX 10,000 UNIT/1ML VIAL SC ONE (21:00)
[2022-09-29 22:00] VITALS: BP 111/63
[2022-09-29] MEDS: GABAPENTIN 300 MG CAP PO SCH (22:32)
[2022-09-29] MEDS: SENNA 8.6 MG TAB PO SCH (22:33)
[2022-09-30 05:00] VITALS: BP 119/65
[2022-09-30] MEDS: SODIUM CHLOR 0.9% PF (SALINE LOCK) 10ML VIAL/SYR IV SCH ×3 (05:17→21:20)
[2022-09-30] MEDS: ACETAMINOPHEN 325 MG TAB PO PRN ×2 (05:17→12:50)
[2022-09-30] MEDS: LEVOTHYROXINE SODIUM 50 MCG TAB PO SCH (06:05)
[2022-09-30] MEDS: CELECOXIB 100 MG CAP PO SCH (08:11)
[2022-09-30] MEDS: TROLAMINE SALICYLATE 10% TOP CREAM TOP SCH ×2 (08:11→21:22)
[2022-09-30] MEDS: B-COMPLEX W/ C & FOLIC ACID(NEPHROVITE TAB) PO SCH (08:12)
[2022-09-30] MEDS: NIFEdipine ER 30 MG TAB PO SCH (08:12)
[2022-09-30] MEDS: PANCREATIC ENZYMES 4200 UNIT CAP PO SCH ×3 (08:13→17:31)
[2022-09-30] MEDS: ASPirin 81 mg TAB PO SCH (08:13)
[2022-09-30] MEDS: FAMOTIDINE (10MG/ML) 2ML VL IV SCH (08:33)
[2022-09-30 09:00] VITALS: BP 177/88
[2022-09-30 13:00] VITALS: BP 111/67
[2022-09-30] MEDS: HYDROcodone-ACET 7.5/325MG TAB PO PRN (15:52)
[2022-09-30 17:00] VITALS: BP 115/60
[2022-09-30] MEDS: SENNA 8.6 MG TAB PO SCH (21:20)
[2022-09-30] MEDS: GABAPENTIN 300 MG CAP PO SCH (21:20)
[2022-09-30 22:00] VITALS: BP 104/51
[2022-10-01 05:00] VITALS: BP 116/60
[2022-10-01] MEDS: ACETAMINOPHEN 325 MG TAB PO PRN ×2 (06:40→12:47)
[2022-10-01] MEDS: SODIUM CHLOR 0.9% PF (SALINE LOCK) 10ML VIAL/SYR IV SCH ×3 (06:41→21:10)
[2022-10-01] MEDS: LEVOTHYROXINE SODIUM 50 MCG TAB PO SCH (06:41)
[2022-10-01 08:30] VITALS: BP 111/52
[2022-10-01] MEDS: CELECOXIB 100 MG CAP PO SCH (08:37)
[2022-10-01] MEDS: TROLAMINE SALICYLATE 10% TOP CREAM TOP SCH ×2 (08:38→21:10)
[2022-10-01] MEDS: NIFEdipine ER 30 MG TAB PO SCH (08:38)
[2022-10-01] MEDS: ASPirin 81 mg TAB PO SCH (08:42)
[2022-10-01] MEDS: PANCREATIC ENZYMES 4200 UNIT CAP PO SCH ×3 (08:42→18:10)
[2022-10-01] MEDS: B-COMPLEX W/ C & FOLIC ACID(NEPHROVITE TAB) PO SCH (08:42)
[2022-10-01 09:00] VITALS: BP 111/52
[2022-10-01 13:00] VITALS: BP 118/61
[2022-10-01] MEDS ORDERED: SODIUM CHL 0.9% 1000 ML BAG XX ONE (14:15)
[2022-10-01] MEDS: HYDROcodone-ACET 7.5/325MG TAB PO PRN ×2 (14:47→21:09)
[2022-10-01 17:00] VITALS: BP 113/60
[2022-10-01] MEDS ORDERED: EPOETIN ALFA-EPBX 10,000 UNIT/1ML VIAL SC ONE (21:00)
[2022-10-01] MEDS: GABAPENTIN 300 MG CAP PO SCH (21:09)
[2022-10-01] MEDS: SENNA 8.6 MG TAB PO SCH (21:10)
[2022-10-01 22:00] VITALS: BP 114/57
[2022-10-02 05:00] VITALS: BP 129/54
[2022-10-02] MEDS: LEVOTHYROXINE SODIUM 50 MCG TAB PO SCH (05:45)
[2022-10-02] MEDS: SODIUM CHLOR 0.9% PF (SALINE LOCK) 10ML VIAL/SYR IV SCH ×3 (05:45→22:00)
[2022-10-02 09:00] VITALS: BP 128/65
[2022-10-02] MEDS: FAMOTIDINE (10MG/ML) 2ML VL IV SCH (09:33)
[2022-10-02] MEDS: B-COMPLEX W/ C & FOLIC ACID(NEPHROVITE TAB) PO SCH (09:33)
[2022-10-02] MEDS: ASPirin 81 mg TAB PO SCH (09:34)
[2022-10-02] MEDS: NIFEdipine ER 30 MG TAB PO SCH (09:35)
[2022-10-02] MEDS: CELECOXIB 100 MG CAP PO SCH (10:04)
[2022-10-02] MEDS: PANCREATIC ENZYMES 4200 UNIT CAP PO SCH ×3 (10:10→17:48)
[2022-10-02] MEDS: HYDROcodone-ACET 7.5/325MG TAB PO PRN ×2 (10:10→20:33)
[2022-10-02] MEDS: TROLAMINE SALICYLATE 10% TOP CREAM TOP SCH ×2 (10:10→22:00)
[2022-10-02 13:00] VITALS: BP 105/59
[2022-10-02 17:00] VITALS: BP 128/62
[2022-10-02 22:00] VITALS: BP 106/60
[2022-10-02] MEDS: GABAPENTIN 300 MG CAP PO SCH (22:05)
[2022-10-02] MEDS: SENNA 8.6 MG TAB PO SCH (22:07)
[2022-10-03 05:00] VITALS: BP 120/56
[2022-10-03] MEDS: SODIUM CHLOR 0.9% PF (SALINE LOCK) 10ML VIAL/SYR IV SCH ×3 (06:00→22:25)
[2022-10-03] MEDS: LEVOTHYROXINE SODIUM 50 MCG TAB PO SCH (06:38)
[2022-10-03] MEDS: PANCREATIC ENZYMES 4200 UNIT CAP PO SCH ×3 (07:56→18:10)
[2022-10-03 09:00] VITALS: BP 122/59
[2022-10-03] MEDS: ASPirin 81 mg TAB PO SCH (09:53)
[2022-10-03] MEDS: CELECOXIB 100 MG CAP PO SCH (09:56)
[2022-10-03] MEDS: B-COMPLEX W/ C & FOLIC ACID(NEPHROVITE TAB) PO SCH (09:56)
[2022-10-03] MEDS: NIFEdipine ER 30 MG TAB PO SCH (09:57)
[2022-10-03] MEDS: TROLAMINE SALICYLATE 10% TOP CREAM TOP SCH ×2 (09:58→22:25)
[2022-10-03] MEDS: HYDROcodone-ACET 7.5/325MG TAB PO PRN ×2 (10:04→22:23)
[2022-10-03 13:00] VITALS: BP 123/57
[2022-10-03 17:00] VITALS: BP 116/57
[2022-10-03] MEDS ORDERED: ceFAZolin 1GM/50ML 50 ML IV ONE (17:45)
[2022-10-03 22:00] VITALS: BP 122/62
[2022-10-03] MEDS: GABAPENTIN 300 MG CAP PO SCH (22:19)
[2022-10-03] MEDS: SENNA 8.6 MG TAB PO SCH (22:24)
[2022-10-04 05:00] VITALS: BP 116/68
[2022-10-04 05:52] LABS: Basophils # (auto) 0.1 10 ^3/uL (0-0.2); Basophils % (auto) 1.2 % (0.0-2.0); Eosinophils # (auto) 0.3 10 ^3/uL (0-0.8); Eosinophils % (auto) 5.3 % (0.0-7.0); Hemoglobin 8.7 g/dL (12.2-16.2); Lymphocytes # (auto) 1.2 10 ^3/uL (0.4-5.4); Lymphocytes % (auto) 21.6 % (10.0-50.0); Mean Corpuscular Hemoglobin 29.8 pg (28.0-32.0); Mean Corpuscular Hgb Conc. 33.3 g/dL (32.0-36.0); Mean Corpuscular Volume 89.5 fL (80.0-100.0); Monocytes # (auto) 0.7 10 ^3/uL (0-1.3); Monocytes % (auto) 11.7 % (0.0-12.0); Neutrophils # (auto) 3.4 10 ^3/uL (1.6-8.6); Neutrophils % (auto) 60.2 % (37.0-80.0); Nucleated Red Blood Cells % 0.1 %; Red Cell Distribution Width 15.2 % (11.8-14.3); White Blood Cell 5.6 10^3/uL (4.4-10.8)
[2022-10-04 06:18] LABS: BUN/Creatinine Ratio 8.1 (10.0-20.0); Potassium 5.2 mmol/L (3.5-5.1)
[2022-10-04] MEDS: LEVOTHYROXINE SODIUM 50 MCG TAB PO SCH (06:28)
[2022-10-04] MEDS: SODIUM CHLOR 0.9% PF (SALINE LOCK) 10ML VIAL/SYR IV SCH ×3 (06:29→21:13)
[2022-10-04 08:20] VITALS: BP 121/61
[2022-10-04] MEDS: PANCREATIC ENZYMES 4200 UNIT CAP PO SCH ×3 (08:25→18:15)
[2022-10-04 08:39] VITALS: BP 121/61
[2022-10-04] MEDS: HYDROcodone-ACET 7.5/325MG TAB PO PRN ×2 (10:17→21:12)
[2022-10-04] MEDS: FAMOTIDINE (10MG/ML) 2ML VL IV SCH (10:17)
[2022-10-04] MEDS: B-COMPLEX W/ C & FOLIC ACID(NEPHROVITE TAB) PO SCH (10:17)
[2022-10-04] MEDS: ceFAZolin 1GM/50ML 50 ML IV SCH (10:17)
[2022-10-04] MEDS: ASPirin 81 mg TAB PO SCH (10:17)
[2022-10-04] MEDS: NIFEdipine ER 30 MG TAB PO SCH (10:18)
[2022-10-04] MEDS: TROLAMINE SALICYLATE 10% TOP CREAM TOP SCH ×2 (10:18→21:14)
[2022-10-04] MEDS: CELECOXIB 100 MG CAP PO SCH (12:01)
[2022-10-04] MEDS ORDERED: SODIUM CHL 0.9% 1000 ML BAG XX ONE (12:30)
[2022-10-04 13:00] VITALS: BP 126/68
[2022-10-04 17:04] VITALS: BP 132/67
[2022-10-04] MEDS ORDERED: EPOETIN ALFA-EPBX 10,000 UNIT/1ML VIAL SC ONE (21:00)
[2022-10-04] MEDS: SENNA 8.6 MG TAB PO SCH (21:12)
[2022-10-04] MEDS: GABAPENTIN 300 MG CAP PO SCH (21:12)
[2022-10-04 22:00] VITALS: BP 126/68
[2022-10-05 04:50] VITALS: BP 119/66
[2022-10-05 05:41] LABS: Basophils # (auto) 0.1 10 ^3/uL (0-0.2); Basophils % (auto) 1.3 % (0.0-2.0); Eosinophils # (auto) 0.2 10 ^3/uL (0-0.8); Eosinophils % (auto) 3.7 % (0.0-7.0); Hematocrit 25.5 % (36.0-46.0); Hemoglobin 8.6 g/dL (12.2-16.2); Lymphocytes # (auto) 0.9 10 ^3/uL (0.4-5.4); Mean Corpuscular Hgb Conc. 33.5 g/dL (32.0-36.0); Mean Corpuscular Volume 89.5 fL (80.0-100.0); Monocytes # (auto) 0.5 10 ^3/uL (0-1.3); Monocytes % (auto) 11.5 % (0.0-12.0); Neutrophils # (auto) 2.8 10 ^3/uL (1.6-8.6); Neutrophils % (auto) 63.5 % (37.0-80.0); Nucleated Red Blood Cells % 0.2 %; Red Blood Cells 2.85 10^6/uL (4.0-5.20); Red Cell Distribution Width 15.4 % (11.8-14.3); White Blood Cell 4.4 10^3/uL (4.4-10.8)
[2022-10-05 06:00] LABS: BUN/Creatinine Ratio 6.4 (10.0-20.0); Calcium 8.5 mg/dL (8.5-10.1); Potassium 4.4 mmol/L (3.5-5.1)
[2022-10-05] MEDS: LEVOTHYROXINE SODIUM 50 MCG TAB PO SCH (06:53)
[2022-10-05] MEDS: SODIUM CHLOR 0.9% PF (SALINE LOCK) 10ML VIAL/SYR IV SCH ×2 (06:53→13:03)
[2022-10-05 07:30] VITALS: BP 121/61
[2022-10-05 09:00] VITALS: BP 133/64
[2022-10-05] MEDS: B-COMPLEX W/ C & FOLIC ACID(NEPHROVITE TAB) PO SCH (09:58)
[2022-10-05] MEDS: ASPirin 81 mg TAB PO SCH (09:58)
[2022-10-05] MEDS: PANCREATIC ENZYMES 4200 UNIT CAP PO SCH ×2 (09:59→13:03)
[2022-10-05] MEDS: CELECOXIB 100 MG CAP PO SCH (09:59)
[2022-10-05] MEDS: NIFEdipine ER 30 MG TAB PO SCH (09:59)
[2022-10-05] MEDS: TROLAMINE SALICYLATE 10% TOP CREAM TOP SCH (10:00)
[2022-10-05] MEDS: ceFAZolin 1GM/50ML 50 ML IV SCH (10:00)
[2022-10-05] MEDS ORDERED: HYDR-4902 PO (10:08)
[2022-10-05] MEDS ORDERED: CEPH250C PO (10:08)
[2022-10-05 13:00] VITALS: BP 135/68
[2022-10-05 14:10] VITALS: BP 133/64
[2022-10-06] MEDS ORDERED: SODIUM CHL 0.9% 1000 ML BAG XX ONE (07:00)
[2022-10-06] MEDS ORDERED: EPOETIN ALFA-EPBX 10,000 UNIT/1ML VIAL SC ONE (21:00)
== END 2022-10-05 14:30 | disposition home health service (06) | DRG 282 ==
LOC: ER 19:31 → TELE 09-16 00:04 → TELE-EAST 09-17 09:30 → EAST 10-03 13:44
PROVIDERS: ADMIT Nurse Practitioner Family; ATTEND Internal Medicine Pulmonary Disease
PROC: 5A1D70Z Performance of Urinary Filtration, Intermittent, Less than 6 Hours Per Day (ICD-10-PCS; principal; 2022-09-16)
PROC: 5A1D70Z Performance of Urinary Filtration, Intermittent, Less than 6 Hours Per Day (ICD-10-PCS; 2022-09-18)
PROC: 5A1D70Z Performance of Urinary Filtration, Intermittent, Less than 6 Hours Per Day (ICD-10-PCS; 2022-09-23)
PROC: 5A1D70Z Performance of Urinary Filtration, Intermittent, Less than 6 Hours Per Day (ICD-10-PCS; 2022-09-24)
PROC: 5A1D70Z Performance of Urinary Filtration, Intermittent, Less than 6 Hours Per Day (ICD-10-PCS; 2022-09-26)
PROC: 5A1D70Z Performance of Urinary Filtration, Intermittent, Less than 6 Hours Per Day (ICD-10-PCS; 2022-09-28)
PROC: 0S9C3ZZ Drainage of Right Knee Joint, Percutaneous Approach (ICD-10-PCS; 2022-09-28)
PROC: 5A1D70Z Performance of Urinary Filtration, Intermittent, Less than 6 Hours Per Day (ICD-10-PCS; 2022-10-01)
PROC: 5A1D70Z Performance of Urinary Filtration, Intermittent, Less than 6 Hours Per Day (ICD-10-PCS; 2022-10-04)
PROC: 5A1D70Z Performance of Urinary Filtration, Intermittent, Less than 6 Hours Per Day (ICD-10-PCS; 2022-10-05)
DX: K85.90 Acute pancreatitis without necrosis or infection, unspecified (principal); G93.41 Metabolic encephalopathy; M00.9 Pyogenic arthritis, unspecified; I12.0 Hypertensive chronic kidney disease with stage 5 chronic kidney disease or end stage renal disease; L03.116 Cellulitis of left lower limb; D63.1 Anemia in chronic kidney disease; G25.3 Myoclonus; N18.6 End stage renal disease; Q61.2 Polycystic kidney, adult type; K86.1 Other chronic pancreatitis; G62.9 Polyneuropathy, unspecified; K86.2 Cyst of pancreas; E78.5 Hyperlipidemia, unspecified; E78.00 Pure hypercholesterolemia, unspecified; E03.9 Hypothyroidism, unspecified; F41.9 Anxiety disorder, unspecified; K59.00 Constipation, unspecified; K21.9 Gastro-esophageal reflux disease without esophagitis; Z79.82 Long term (current) use of aspirin; Z99.2 Dependence on renal dialysis; Z79.899 Other long term (current) drug therapy; Z82.49 Family history of ischemic heart disease and other diseases of the circulatory system; Z88.1 Allergy status to other antibiotic agents
CPT/HCPCS: 36415; 36600; 70450; 70496; 70551; 71045; 71046; 73700; 73721; 74176; 80048; 80053; 80061; 81001; 82306; 82607; 82746; 82805; 83605; 83690; 83735; 83970; 84100; 84443; 84484; 84550; 85025; 85610; 85652; 85730; 86141; 87040; 87205; 87340; 89060; 90935; 93970; 95819; 96360; G0378; J0690; J0696; J1885; J2001; J2405; J3490; Q0162

== ENCOUNTER 2022-12-08 08:59 | Emergency (ER) | payer MEDICAID ==
[~2022-12-08] VITALS: Ht 149.9 cm; Wt 50.0 kg
[~2022-12-08 08:59] MED LIST changes: -ALBU18 IN; -ASPI-498 PO; -BECL0.07 IN; +CEPH250C PO; -FERR1TAB17 PO; -FLUT50SP; -GAB100C PO; -HYDR-4924 PO; -LISI10TA34 PO; -MET25T PO; -PANT40TA2 PO; -PRED20TA2 PO; -SUCR1SUS26 PO
[2022-12-08 09:58] LABS: Albumin 3.5 g/dL (3.4-5.0); Calcium 8.7 mg/dL (8.5-10.1); Potassium 4.8 mmol/L (3.5-5.1)
[2022-12-08 10:02] LABS: INR 1.21 (0.9-1.15); Prothrombin Time 12.5 sec (9.3-11.8)
[2022-12-08 10:07] LABS: BUN/Creatinine Ratio 6.7 (10.0-20.0); Bilirubin, Total 0.8 mg/dL (0.2-1.0); Total Protein 8.1 g/dL (6.4-8.2)
[2022-12-08 10:43] LABS: Urine Bacteria NONE SEEN /hpf (None Seen); Urine Blood Negative /uL (Negative); Urine Clarity HAZY (Clear); Urine Color Yellow (Yellow); Urine Protein, UAD 2+ (Negative); Urine Specific Gravity 1.011 (1.001-1.035); Urine Urobilinogen Normal (Negative); Urine WBC 3 /hpf (0 - 5); Urine pH 8.5 (5.0-8.0)
[2022-12-08 11:38] LABS: Basophils # (auto) 0 10 ^3/uL (0-0.2); Basophils % (auto) 0.3 % (0.0-2.0); Eosinophils # (auto) 0.1 10 ^3/uL (0-0.8); Eosinophils % (auto) 0.5 % (0.0-7.0); Hematocrit 44.1 % (36.0-46.0); Hemoglobin 14.1 g/dL (12.2-16.2); Lymphocytes # (auto) 0.8 10 ^3/uL (0.4-5.4); Lymphocytes % (auto) 7.3 % (10.0-50.0); Mean Corpuscular Hemoglobin 28.9 pg (28.0-32.0); Mean Corpuscular Hgb Conc. 32.1 g/dL (32.0-36.0); Mean Corpuscular Volume 90.3 fL (80.0-100.0); Monocytes # (auto) 0.8 10 ^3/uL (0-1.3); Monocytes % (auto) 7.4 % (0.0-12.0); Neutrophils # (auto) 8.9 10 ^3/uL (1.6-8.6); Neutrophils % (auto) 84.5 % (37.0-80.0); Red Blood Cells 4.88 10^6/uL (4.0-5.20); White Blood Cell 10.6 10^3/uL (4.4-10.8)
[2022-12-08] MEDS ORDERED: NITR-87 PO (11:45)
[2022-12-08] MEDS ORDERED: cefTRIAXone SOD 1,000 MG VL IM ONE (12:00)
[2022-12-08] MEDS ORDERED: HYDROcodone-ACET 10/325MG TAB PO ONE (12:00)
[2022-12-08 12:03] VITALS: BP 136/91; PULSE 106; RESP 18; TEMP 98.6; O2SAT 98
[2022-12-08 14:47] LABS: Anisocytosis Moderate; Platelet Estimate Decreased
== END 2022-12-08 12:19 | disposition home or self-care (01) ==
LOC: ER 08:59
DX: N39.0 Urinary tract infection, site not specified (principal); R10.12 Left upper quadrant pain; I12.0 Hypertensive chronic kidney disease with stage 5 chronic kidney disease or end stage renal disease; N18.6 End stage renal disease; K21.9 Gastro-esophageal reflux disease without esophagitis; E78.5 Hyperlipidemia, unspecified; Z79.899 Other long term (current) drug therapy; Z88.1 Allergy status to other antibiotic agents; Z88.5 Allergy status to narcotic agent
CPT/HCPCS: 36415; 74176; 80053; 81001; 82150; 83690; 83735; 84484; 85025; 85610; 85730; 93005; 96372; 99285; J0696

== ENCOUNTER 2022-12-17 17:47 | Inpatient (IN) | payer MEDICAID ==
[~2022-12-17] VITALS: Ht 147.3 cm; Wt 55.5 kg
[~2022-12-17 17:47] MED LIST changes: +NITR-87 PO
[2022-12-17] MEDS ORDERED: ONDANSETRON HCL 4 MG/2 ML VIAL IV ONE (18:15)
[2022-12-17] MEDS ORDERED: MORPHINE SULFATE 4 MG/ML SYR/VIAL IV ONE (18:15)
[2022-12-17 19:11] LABS: Hematocrit 36.5 % (36.0-46.0); Hemoglobin 11.9 g/dL (12.2-16.2); Mean Corpuscular Hgb Conc. 32.6 g/dL (32.0-36.0); Red Cell Distribution Width 17.8 % (11.8-14.3); White Blood Cell 20.6 10^3/uL (4.4-10.8)
[2022-12-17 19:14] LABS: Basophils % (manual) 0 (0.0-2.0); Blast Cells 0; Eosinophils % (manual) 0 (0-7); Metamyelocytes % 0; Myelocytes % 0; Promyelocytes % 0; Reactive Lymphocytes 0
[2022-12-17 19:27] LABS: INR 1.12 (0.9-1.15); Partial Thromboplastin Time 34.7 SEC (24.5-34.5); Prothrombin Time 11.7 sec (9.3-11.8)
[2022-12-17 19:46] LABS: Anisocytosis Slight; Band Neutrophils % (manual) 3; Lymphocytes % (manual) 4 (10.0-50.0); Monocytes % (manual) 7 (0-12); Platelet Estimate Adequate
[2022-12-17 19:54] LABS: Albumin 2.4 g/dL (3.4-5.0); Calcium 8.1 mg/dL (8.5-10.1); Magnesium 2.2 mg/dL (1.6-2.6); Potassium 3.8 mmol/L (3.5-5.1)
[2022-12-17 19:59] LABS: BUN/Creatinine Ratio 7.2 (10.0-20.0); Bilirubin, Total 0.6 mg/dL (0.2-1.0); Total Protein 7.1 g/dL (6.4-8.2)
[2022-12-17] MEDS ORDERED: metroNIDAZOLE 500MG/100ML 100 ML IV ONE (21:00)
[2022-12-17] MEDS ORDERED: PIPERACILLIN-TAZOB 3.375GM 100 ML IV ONE (21:00)
[2022-12-17 21:50] VITALS: PULSE 109; RESP 18; O2SAT 92
[2022-12-18 03:00] VITALS: PULSE 87; PULSE 98; RESP 16; O2SAT 96
[2022-12-18 05:58] LABS: Basophils # (auto) 0 10 ^3/uL (0-0.2); Basophils % (auto) 0.2 % (0.0-2.0); Eosinophils # (auto) 0 10 ^3/uL (0-0.8); Eosinophils % (auto) 0.1 % (0.0-7.0); Hematocrit 31.6 % (36.0-46.0); Hemoglobin 10.3 g/dL (12.2-16.2); Lymphocytes # (auto) 1.1 10 ^3/uL (0.4-5.4); Lymphocytes % (auto) 7.5 % (10.0-50.0); Mean Corpuscular Hemoglobin 28.7 pg (28.0-32.0); Mean Corpuscular Hgb Conc. 32.5 g/dL (32.0-36.0); Mean Corpuscular Volume 88.2 fL (80.0-100.0); Monocytes # (auto) 1.2 10 ^3/uL (0-1.3); Monocytes % (auto) 8.6 % (0.0-12.0); Neutrophils # (auto) 11.9 10 ^3/uL (1.6-8.6); Neutrophils % (auto) 83.6 % (37.0-80.0); Red Blood Cells 3.58 10^6/uL (4.0-5.20); Red Cell Distribution Width 17.7 % (11.8-14.3); White Blood Cell 14.2 10^3/uL (4.4-10.8)
[2022-12-18] MEDS ORDERED: metroNIDAZOLE 500MG/100ML 100 ML IV SCH (06:00)
[2022-12-18 06:35] LABS: Bilirubin, Total 0.6 mg/dL (0.2-1.0); Calcium 7.8 mg/dL (8.5-10.1); Total Protein 6.4 g/dL (6.4-8.2)
[2022-12-18] MEDS ORDERED: PIPERACILLIN-TAZOB 2.25GM 0.75 GM in D5W 5% 50 ML IV SCH (07:00)
[2022-12-18 08:38] VITALS: PULSE 79; RESP 20; O2SAT 96
[2022-12-18] MEDS ORDERED: MORPHINE SULFATE INJ 2 MG/ml SYRG IV ONE (08:45)
[2022-12-18] MEDS ORDERED: ONDANSETRON HCL 4 MG/2 ML VIAL IV ONE (08:45)
[2022-12-18] MEDS: PANTOPRAZOLE 40 MG/10 ML VIAL INJ IV SCH (11:05)
[2022-12-18] MEDS: PIPERACILLIN-TAZOB 2.25GM 50 ML IV SCH ×2 (11:05→22:54)
[2022-12-18] MEDS: ONDANSETRON HCL 4 MG/2 ML VIAL IV PRN ×2 (18:17→22:51)
[2022-12-18] MEDS: MORPHINE SULFATE INJ 2 MG/ml SYRG IV PRN ×2 (18:24→22:53)
[2022-12-18 18:32] VITALS: PULSE 92; RESP 16; O2SAT 95
[2022-12-18] MEDS ORDERED: LOVA10TA2 PO (18:54)
[2022-12-18] MEDS ORDERED: FERR1TAB17 PO (18:54)
[2022-12-18 20:00] VITALS: PULSE 71; RESP 17; O2SAT 99
[2022-12-18 22:00] VITALS: BP 128/71; PULSE 77; RESP 17; TEMP 97.7; O2SAT 98
[2022-12-19 05:00] VITALS: BP 116/69; PULSE 71; RESP 17; TEMP 98.4; O2SAT 97
[2022-12-19 05:56] LABS: Basophils # (auto) 0 10 ^3/uL (0-0.2); Basophils % (auto) 0.3 % (0.0-2.0); Eosinophils # (auto) 0.1 10 ^3/uL (0-0.8); Eosinophils % (auto) 0.5 % (0.0-7.0); Hematocrit 31.4 % (36.0-46.0); Hemoglobin 10.1 g/dL (12.2-16.2); Lymphocytes % (auto) 7.3 % (10.0-50.0); Mean Corpuscular Hemoglobin 28.9 pg (28.0-32.0); Mean Corpuscular Hgb Conc. 32.3 g/dL (32.0-36.0); Mean Corpuscular Volume 89.6 fL (80.0-100.0); Monocytes % (auto) 6.8 % (0.0-12.0); Neutrophils # (auto) 12.3 10 ^3/uL (1.6-8.6); Neutrophils % (auto) 85.1 % (37.0-80.0); Red Cell Distribution Width 17.9 % (11.8-14.3); White Blood Cell 14.4 10^3/uL (4.4-10.8)
[2022-12-19] MEDS: ONDANSETRON HCL 4 MG/2 ML VIAL IV PRN ×2 (05:59→14:41)
[2022-12-19] MEDS: MORPHINE SULFATE INJ 2 MG/ml SYRG IV PRN ×2 (06:00→15:30)
[2022-12-19 06:11] LABS: Albumin 1.9 g/dL (3.4-5.0); Calcium 7.8 mg/dL (8.5-10.1); Potassium 4.6 mmol/L (3.5-5.1)
[2022-12-19 06:15] LABS: BUN/Creatinine Ratio 8.5 (10.0-20.0); Bilirubin, Total 0.6 mg/dL (0.2-1.0); Magnesium 2.4 mg/dL (1.6-2.6); Total Protein 6.2 g/dL (6.4-8.2)
[2022-12-19 08:00] VITALS: BP 117/76; PULSE 70; TEMP 98.7; O2SAT 20; O2SAT 99
[2022-12-19] MEDS: PIPERACILLIN-TAZOB 2.25GM 50 ML IV SCH ×2 (09:01→21:56)
[2022-12-19] MEDS: PANTOPRAZOLE 40 MG/10 ML VIAL INJ IV SCH (09:01)
[2022-12-19] MEDS ORDERED: SODIUM CHL 0.9% 1000 ML BAG XX ONE (10:00)
[2022-12-19] MEDS ORDERED: B-COMPLEX W/ C & FOLIC ACID(NEPHROVITE TAB) PO SCH (10:00)
[2022-12-19 10:36] LABS: Magnesium 1.6 mg/dL (1.6-2.6); Phosphorus 5.7 mg/dL (2.5-4.90)
[2022-12-19 12:00] VITALS: BP 160/77; PULSE 71; RESP 20; TEMP 97.9; O2SAT 96
[2022-12-19 17:00] VITALS: BP 134/62; PULSE 93; RESP 18; TEMP 98.1; O2SAT 98
[2022-12-19] MEDS ORDERED: EPOETIN ALFA-EPBX 10,000 UNIT/1ML VIAL SC ONE (21:00)
[2022-12-19 22:00] VITALS: BP 121/67; PULSE 81; RESP 14; TEMP 98.6; O2SAT 98
[2022-12-20] MEDS: ONDANSETRON HCL 4 MG/2 ML VIAL IV PRN ×2 (02:27→21:48)
[2022-12-20] MEDS: MORPHINE SULFATE INJ 2 MG/ml SYRG IV PRN ×2 (02:29→21:50)
[2022-12-20 05:00] VITALS: BP 114/73; PULSE 65; RESP 14; TEMP 97.9; O2SAT 100
[2022-12-20 06:09] LABS: Basophils # (auto) 0 10 ^3/uL (0-0.2); Basophils % (auto) 0.2 % (0.0-2.0); Eosinophils # (auto) 0 10 ^3/uL (0-0.8); Eosinophils % (auto) 0.3 % (0.0-7.0); Hematocrit 31.5 % (36.0-46.0); Hemoglobin 10.1 g/dL (12.2-16.2); Lymphocytes % (auto) 7.6 % (10.0-50.0); Mean Corpuscular Hemoglobin 28.8 pg (28.0-32.0); Mean Corpuscular Volume 90.1 fL (80.0-100.0); Monocytes # (auto) 0.8 10 ^3/uL (0-1.3); Monocytes % (auto) 6.2 % (0.0-12.0); Neutrophils # (auto) 11.4 10 ^3/uL (1.6-8.6); Neutrophils % (auto) 85.7 % (37.0-80.0); Nucleated Red Blood Cells % 0.1 %; Red Blood Cells 3.49 10^6/uL (4.0-5.20); Red Cell Distribution Width 17.7 % (11.8-14.3); White Blood Cell 13.4 10^3/uL (4.4-10.8)
[2022-12-20 06:33] LABS: Albumin 1.9 g/dL (3.4-5.0); Potassium 4.5 mmol/L (3.5-5.1)
[2022-12-20 06:38] LABS: BUN/Creatinine Ratio 7.2 (10.0-20.0); Bilirubin, Total 0.7 mg/dL (0.2-1.0); Magnesium 2.2 mg/dL (1.6-2.6); Total Protein 6.2 g/dL (6.4-8.2)
[2022-12-20] MEDS: LEVOTHYROXINE SODIUM 50 MCG TAB PO SCH ×2 (06:47→09:37)
[2022-12-20] MEDS: PIPERACILLIN-TAZOB 2.25GM 50 ML IV SCH ×2 (09:36→21:57)
[2022-12-20] MEDS: PANTOPRAZOLE 40 MG/10 ML VIAL INJ IV SCH ×2 (09:37→21:53)
[2022-12-20] MEDS ORDERED: IOHEXOL 300 MG/ML 100ML BOTTLE IJ ONE (12:50)
[2022-12-20 12:56] VITALS: BP 103/61; PULSE 67; RESP 16; TEMP 97.5; O2SAT 100
[2022-12-20 16:49] VITALS: BP 146/69; PULSE 74; RESP 19; TEMP 97.9; O2SAT 99
[2022-12-20] MEDS: CALCIUM ACETATE 667 MG CAP PO SCH (18:40)
[2022-12-20 22:58] VITALS: BP 159/64; PULSE 76; RESP 18; TEMP 98.2; O2SAT 99
[2022-12-21] MEDS ORDERED: IOHEXOL 300 MG/ML 100ML BOTTLE IJ ONE (04:44)
[2022-12-21 04:47] VITALS: BP 150/68; PULSE 77; RESP 18; TEMP 98.2; O2SAT 99
[2022-12-21] MEDS ORDERED: SODIUM CHL 0.9% 1000 ML BAG XX ONE (07:00)
[2022-12-21 07:30] VITALS: TEMP 36.8
[2022-12-21 08:00] VITALS: BP 135/64; PULSE 64; RESP 20; TEMP 97.8; O2SAT 95
[2022-12-21] MEDS: CALCIUM ACETATE 667 MG CAP PO SCH ×3 (08:00→17:59)
[2022-12-21] MEDS: LEVOTHYROXINE SODIUM 50 MCG TAB PO SCH (10:42)
[2022-12-21] MEDS: PIPERACILLIN-TAZOB 2.25GM 50 ML IV SCH ×2 (10:43→21:51)
[2022-12-21] MEDS: PANTOPRAZOLE 40 MG/10 ML VIAL INJ IV SCH ×2 (10:43→21:59)
[2022-12-21] MEDS: ONDANSETRON HCL 4 MG/2 ML VIAL IV PRN (10:45)
[2022-12-21] MEDS: MORPHINE SULFATE INJ 2 MG/ml SYRG IV PRN (10:45)
[2022-12-21 11:24] LABS: Basophils # (auto) 0 10 ^3/uL (0-0.2); Basophils % (auto) 0.1 % (0.0-2.0); Eosinophils # (auto) 0 10 ^3/uL (0-0.8); Eosinophils % (auto) 0.4 % (0.0-7.0); Hematocrit 37.1 % (36.0-46.0); Hemoglobin 11.7 g/dL (12.2-16.2); Lymphocytes # (auto) 0.8 10 ^3/uL (0.4-5.4); Lymphocytes % (auto) 7.1 % (10.0-50.0); Mean Corpuscular Hemoglobin 29.1 pg (28.0-32.0); Mean Corpuscular Hgb Conc. 31.6 g/dL (32.0-36.0); Mean Corpuscular Volume 92.2 fL (80.0-100.0); Monocytes % (auto) 8.7 % (0.0-12.0); Neutrophils # (auto) 9.5 10 ^3/uL (1.6-8.6); Neutrophils % (auto) 83.7 % (37.0-80.0); Nucleated Red Blood Cells % 0.1 %; Red Blood Cells 4.03 10^6/uL (4.0-5.20); Red Cell Distribution Width 18.2 % (11.8-14.3); White Blood Cell 11.4 10^3/uL (4.4-10.8)
[2022-12-21 11:25] LABS: Calcium 8.6 mg/dL (8.5-10.1); Potassium 4.4 mmol/L (3.5-5.1)
[2022-12-21 11:28] LABS: Albumin 2.2 g/dL (3.4-5.0); BUN/Creatinine Ratio 7.2 (10.0-20.0)
[2022-12-21 11:30] LABS: Bilirubin, Total 0.6 mg/dL (0.2-1.0); Total Protein 7.4 g/dL (6.4-8.2)
[2022-12-21 17:00] VITALS: BP 139/61; PULSE 75; TEMP 92.5; O2SAT 92
[2022-12-21] MEDS ORDERED: EPOETIN ALFA-EPBX 10,000 UNIT/1ML VIAL SC ONE (21:00)
[2022-12-21] MEDS: HYDROcodone-ACET 5/325MG TAB PO PRN (21:47)
[2022-12-21 22:00] VITALS: BP 148/75; PULSE 89; RESP 16; TEMP 98; O2SAT 93
[2022-12-22 05:00] VITALS: BP 150/63; PULSE 63; RESP 18; TEMP 97.7; O2SAT 97
[2022-12-22] MEDS: LEVOTHYROXINE SODIUM 50 MCG TAB PO SCH (06:35)
[2022-12-22 07:30] VITALS: TEMP 36.5
[2022-12-22 08:00] VITALS: BP 160/90; PULSE 83; RESP 18; TEMP 98.6; O2SAT 95
[2022-12-22] MEDS: PANTOPRAZOLE 40 MG/10 ML VIAL INJ IV SCH ×2 (10:15→22:27)
[2022-12-22] MEDS: CALCIUM ACETATE 667 MG CAP PO SCH ×3 (10:15→17:51)
[2022-12-22] MEDS: PIPERACILLIN-TAZOB 2.25GM 50 ML IV SCH ×2 (10:15→22:27)
[2022-12-22] MEDS ORDERED: DIPHENOXYLATE W/ATROPINE 2.5 MG TAB PO ONE (12:45)
[2022-12-22 13:00] VITALS: BP 150/82; PULSE 84; RESP 18; TEMP 98.5; O2SAT 97
[2022-12-22 17:00] VITALS: BP 118/68; PULSE 69; RESP 20; TEMP 98.6; O2SAT 98
[2022-12-22] MEDS: ONDANSETRON HCL 4 MG/2 ML VIAL IV PRN (18:53)
[2022-12-22] MEDS: HYDROcodone-ACET 5/325MG TAB PO PRN ×2 (18:54→23:16)
[2022-12-22 22:00] VITALS: BP 115/57; PULSE 66; RESP 16; TEMP 97.7; O2SAT 96
[2022-12-23 05:00] VITALS: BP_SYST 115; BP_SYST 124; BP_DIAS 66; BP_DIAS 83; PULSE 62; PULSE 93; RESP 20; TEMP 97.3; TEMP 98.1; O2SAT 95; O2SAT 98
[2022-12-23] MEDS: LEVOTHYROXINE SODIUM 50 MCG TAB PO SCH (06:43)
[2022-12-23] MEDS: ONDANSETRON HCL 4 MG/2 ML VIAL IV PRN (06:51)
[2022-12-23] MEDS: CALCIUM ACETATE 667 MG CAP PO SCH ×2 (09:02→12:00)
[2022-12-23] MEDS: PIPERACILLIN-TAZOB 2.25GM 50 ML IV SCH (09:02)
[2022-12-23] MEDS: PANTOPRAZOLE 40 MG/10 ML VIAL INJ IV SCH (09:02)
[2022-12-23] MEDS ORDERED: CIPR-173 PO (09:45)
[2022-12-23 10:48] VITALS: BP 117/62; PULSE 62; RESP 16; TEMP 97.8; O2SAT 99
[2022-12-23 11:29] VITALS: BP 117/62; PULSE 62; RESP 16; TEMP 97.8; O2SAT 99
[2022-12-23 11:50] VITALS: BP 117/62; PULSE 62; RESP 16; TEMP 97.8; O2SAT 99
[2022-12-23] MEDS: HYDROcodone-ACET 5/325MG TAB PO PRN (13:32)
== END 2022-12-23 13:40 | disposition home or self-care (01) | DRG 720 ==
LOC: ER 17:47 → OVERFLOW 21:25 → WEST WING 12-18 18:04
PROVIDERS: ADMIT Internal Medicine Geriatric Medicine; ATTEND Family Medicine
PROC: 5A1D70Z Performance of Urinary Filtration, Intermittent, Less than 6 Hours Per Day (ICD-10-PCS; principal; 2022-12-19)
PROC: 5A1D70Z Performance of Urinary Filtration, Intermittent, Less than 6 Hours Per Day (ICD-10-PCS; 2022-12-21)
DX: A41.9 Sepsis, unspecified organism (principal); R65.21 Severe sepsis with septic shock; I12.0 Hypertensive chronic kidney disease with stage 5 chronic kidney disease or end stage renal disease; E44.0 Moderate protein-calorie malnutrition; D63.1 Anemia in chronic kidney disease; E83.39 Other disorders of phosphorus metabolism; N18.6 End stage renal disease; K21.9 Gastro-esophageal reflux disease without esophagitis; E03.9 Hypothyroidism, unspecified; Z88.6 Allergy status to analgesic agent; Q61.3 Polycystic kidney, unspecified; Z99.2 Dependence on renal dialysis; Z82.49 Family history of ischemic heart disease and other diseases of the circulatory system; Z88.1 Allergy status to other antibiotic agents; Z90.5 Acquired absence of kidney; Z68.25 Body mass index [BMI] 25.0-25.9, adult
CPT/HCPCS: 36415; 74176; 74177; 76705; 78226; 80053; 82306; 83605; 83690; 83735; 83970; 84100; 84443; 84484; 85007; 85025; 85027; 85610; 85730; 90935; 93005; 96365; 96375; C9113; G0378; J1642; J2405; J2543; J3490

== ENCOUNTER 2023-02-02 20:14 | Inpatient (IN) | payer MEDICAID ==
[~2023-02-02] VITALS: Ht 152.4 cm; Wt 50.5 kg
[~2023-02-02 20:14] MED LIST changes: +CIPR-173 PO; +FERR1TAB17 PO; +LOVA10TA2 PO
[2023-02-02 21:48] LABS: Urine Bacteria FEW /hpf (None Seen); Urine Blood Negative /uL (Negative); Urine Clarity HAZY (Clear); Urine Color Yellow (Yellow); Urine Protein, UAD 2+ (Negative); Urine Urobilinogen Normal (Negative); Urine WBC 2 /hpf (0 - 5); Urine pH 8.5 (5.0-8.0)
[2023-02-03 01:40] LABS: Basophils # (auto) 0 10 ^3/uL (0-0.2); Basophils % (auto) 0.7 % (0.0-2.0); Eosinophils # (auto) 0.1 10 ^3/uL (0-0.8); Eosinophils % (auto) 1.1 % (0.0-7.0); Hematocrit 34.1 % (36.0-46.0); Hemoglobin 10.8 g/dL (12.2-16.2); Lymphocytes # (auto) 1.4 10 ^3/uL (0.4-5.4); Lymphocytes % (auto) 21.8 % (10.0-50.0); Mean Corpuscular Hemoglobin 28.2 pg (28.0-32.0); Mean Corpuscular Hgb Conc. 31.7 g/dL (32.0-36.0); Mean Corpuscular Volume 88.9 fL (80.0-100.0); Monocytes # (auto) 0.6 10 ^3/uL (0-1.3); Monocytes % (auto) 9.2 % (0.0-12.0); Neutrophils # (auto) 4.3 10 ^3/uL (1.6-8.6); Neutrophils % (auto) 67.2 % (37.0-80.0); Nucleated Red Blood Cells % 0.2 %; Red Blood Cells 3.84 10^6/uL (4.0-5.20); Red Cell Distribution Width 20.6 % (11.8-14.3); White Blood Cell 6.3 10^3/uL (4.4-10.8)
[2023-02-03 01:53] LABS: Alanine Aminotransferase 11 U/L (7-40); Albumin 4.1 g/dL (3.2-4.8); Alkaline Phosphatase 185 U/L (46-116); Anion Gap 11 (5-15); Aspartate Aminotransferase 19 U/L (13-40); BUN/Creatinine Ratio 5.5 (10.0-20.0); Bilirubin, Total 0.4 mg/dL (0.2-1.0); Blood Urea Nitrogen 23 mg/dL (9-23); Calcium 8.3 mg/dL (8.7-10.4); Carbon Dioxide 26 mmol/L (20-30); Chloride 100 mmol/L (98-107); Glucose 88 mg/dL (74-106); Lipase 53 U/L (12-53); Potassium 3.8 mmol/L (3.5-5.1); Sodium 137 mmol/L (136-145); Total Protein 7.1 g/dL (5.7-8.2)
[2023-02-03] MEDS ORDERED: DICYCLOMINE HCL (10MG/ML) 2 ML AMPULE IM ONE (03:15)
[2023-02-03] MEDS ORDERED: ONDANSETRON ODT 4 MG TAB PO ONE (03:15)
[2023-02-03] MEDS ORDERED: hydrALAZINE HCL 20 MG/ML VL IV PRN (04:00)
[2023-02-03] MEDS ORDERED: DOCUSATE SOD 100 MG CAP PO PRN (04:00)
[2023-02-03] MEDS ORDERED: ACETAMINOPHEN 325 MG TAB PO PRN (04:00)
[2023-02-03 04:24] LABS: Alanine Aminotransferase 11 U/L (7-40); Albumin 4.1 g/dL (3.2-4.8); Alkaline Phosphatase 184 U/L (46-116); Anion Gap 11 (5-15); Aspartate Aminotransferase 20 U/L (13-40); BUN/Creatinine Ratio 5.6 (10.0-20.0); Bilirubin, Total 0.4 mg/dL (0.2-1.0); Blood Urea Nitrogen 24 mg/dL (9-23); Calcium 8.2 mg/dL (8.7-10.4); Carbon Dioxide 26 mmol/L (20-30); Chloride 100 mmol/L (98-107); Glucose 83 mg/dL (74-106); Potassium 3.6 mmol/L (3.5-5.1); Sodium 137 mmol/L (136-145); Total Protein 7.1 g/dL (5.7-8.2)
[2023-02-03] MEDS ORDERED: MORPHINE SULFATE INJ 2 MG/ml SYRG IV PRN (05:00)
[2023-02-03] MEDS ORDERED: NITROGLYCERIN 0.4 MG SL TAB SL PRN (05:00)
[2023-02-03 05:54] LABS: Basophils # (auto) 0 10 ^3/uL (0-0.2); Basophils % (auto) 0.5 % (0.0-2.0); Eosinophils # (auto) 0.1 10 ^3/uL (0-0.8); Eosinophils % (auto) 0.9 % (0.0-7.0); Hematocrit 31.6 % (36.0-46.0); Hemoglobin 10.5 g/dL (12.2-16.2); Lymphocytes # (auto) 1.2 10 ^3/uL (0.4-5.4); Lymphocytes % (auto) 19.2 % (10.0-50.0); Mean Corpuscular Hgb Conc. 33.1 g/dL (32.0-36.0); Mean Corpuscular Volume 87.5 fL (80.0-100.0); Monocytes # (auto) 0.6 10 ^3/uL (0-1.3); Monocytes % (auto) 9.5 % (0.0-12.0); Neutrophils # (auto) 4.5 10 ^3/uL (1.6-8.6); Neutrophils % (auto) 69.9 % (37.0-80.0); Nucleated Red Blood Cells % 0.2 %; Red Blood Cells 3.61 10^6/uL (4.0-5.20); White Blood Cell 6.5 10^3/uL (4.4-10.8)
[2023-02-03] MEDS: SODIUM CHLOR 0.9% PF (SALINE LOCK) 10ML VIAL/SYR IV SCH ×4 (06:00→23:31)
[2023-02-03] MEDS: LEVOTHYROXINE SODIUM 50 MCG TAB PO SCH (06:49)
[2023-02-03 09:08] VITALS: PULSE 74; RESP 18; O2SAT 97
[2023-02-03] MEDS: SEVELAMER 800 MG TAB PO SCH ×3 (09:08→18:39)
[2023-02-03] MEDS: B-COMPLEX W/ C & FOLIC ACID(NEPHROVITE TAB) PO SCH (10:50)
[2023-02-03] MEDS: amLODIPine BESYLATE 5 MG TAB PO SCH (10:52)
[2023-02-03 17:55] VITALS: BP 137/71; PULSE 85; RESP 18; TEMP 97.6; O2SAT 98
[2023-02-03 17:56] VITALS: BP 137/71; PULSE 85; RESP 18; TEMP 97.6; O2SAT 98
[2023-02-03 20:00] VITALS: PULSE 87
[2023-02-03] MEDS ORDERED: IOHEXOL 350 MG/ML 100ML IJ ONE (20:10)
[2023-02-03 22:00] VITALS: BP 147/74; PULSE 70; RESP 18; TEMP 98.6; O2SAT 94
[2023-02-04] VITALS (7 sets, daily range): BP systolic 135–170; BP diastolic 74–89; PULSE 74–101; RESP 16–18; TEMP 97.2–98.9; O2SAT 92–98
[2023-02-04] MEDS: HYDROcodone-ACET 5/325MG TAB PO PRN (03:03)
[2023-02-04 06:08] LABS: Basophils # (auto) 0 10 ^3/uL (0-0.2); Basophils % (auto) 0.6 % (0.0-2.0); Eosinophils # (auto) 0.2 10 ^3/uL (0-0.8); Eosinophils % (auto) 2.9 % (0.0-7.0); Hematocrit 29.6 % (36.0-46.0); Hemoglobin 9.7 g/dL (12.2-16.2); Lymphocytes # (auto) 0.9 10 ^3/uL (0.4-5.4); Lymphocytes % (auto) 15.2 % (10.0-50.0); Mean Corpuscular Hemoglobin 28.5 pg (28.0-32.0); Mean Corpuscular Hgb Conc. 32.9 g/dL (32.0-36.0); Mean Corpuscular Volume 86.6 fL (80.0-100.0); Monocytes # (auto) 0.7 10 ^3/uL (0-1.3); Monocytes % (auto) 11.2 % (0.0-12.0); Neutrophils # (auto) 4.1 10 ^3/uL (1.6-8.6); Neutrophils % (auto) 70.1 % (37.0-80.0); Red Blood Cells 3.42 10^6/uL (4.0-5.20); Red Cell Distribution Width 19.2 % (11.8-14.3); White Blood Cell 5.9 10^3/uL (4.4-10.8)
[2023-02-04] MEDS: LEVOTHYROXINE SODIUM 50 MCG TAB PO SCH (06:11)
[2023-02-04] MEDS: SODIUM CHLOR 0.9% PF (SALINE LOCK) 10ML VIAL/SYR IV SCH ×3 (06:12→21:18)
[2023-02-04 06:28] LABS: % Iron Saturation 9.7 % (15-50)
[2023-02-04 06:29] LABS: Albumin 3.3 g/dL (3.2-4.8); Alkaline Phosphatase 131 U/L (46-116); Anion Gap 10 (5-15); Aspartate Aminotransferase 19 U/L (13-40); BUN/Creatinine Ratio 6.4 (10.0-20.0); Calcium 7.7 mg/dL (8.5-10.1); Carbon Dioxide 26 mmol/L (20-30); Chloride 100 mmol/L (98-107); Glucose 90 mg/dL (74-106); Potassium 4.2 mmol/L (3.5-5.1); Sodium 136 mmol/L (136-145)
[2023-02-04 06:30] LABS: Bilirubin, Total 0.3 mg/dL (0.2-1.0); Total Protein 5.9 g/dL (5.7-8.2)
[2023-02-04 06:37] LABS: Alanine Aminotransferase 9 U/L (7-40); Blood Urea Nitrogen 36 mg/dL (9-23)
[2023-02-04] MEDS ORDERED: SODIUM CHL 0.9% 1000 ML BAG XX ONE (07:00)
[2023-02-04] MEDS: B-COMPLEX W/ C & FOLIC ACID(NEPHROVITE TAB) PO SCH (09:27)
[2023-02-04] MEDS: amLODIPine BESYLATE 5 MG TAB PO SCH (09:27)
[2023-02-04] MEDS: SEVELAMER 800 MG TAB PO SCH ×3 (09:27→18:24)
[2023-02-04 09:29] LABS: Hepatitis B Surface Antigen Negative (Negative)
[2023-02-04 09:49] LABS: Hepatitis A Ab IgM Negative
[2023-02-04 09:50] LABS: Hepatitis B Core IgM Negative; Hepatitis C Antibody Negative (Negative)
[2023-02-04] MEDS: ONDANSETRON HCL 4 MG/2 ML VIAL IV PRN ×2 (13:47→21:16)
[2023-02-04] MEDS ORDERED: EPOETIN ALFA-EPBX 10,000 UNIT/1ML VIAL SC ONE (21:00)
[2023-02-05] VITALS (7 sets, daily range): BP systolic 118–143; BP diastolic 50–78; PULSE 74–96; RESP 14–17; TEMP 97.5–98.6; O2SAT 92–99
[2023-02-05] MEDS: HYDROcodone-ACET 5/325MG TAB PO PRN (04:45)
[2023-02-05] MEDS: SODIUM CHLOR 0.9% PF (SALINE LOCK) 10ML VIAL/SYR IV SCH ×3 (06:00→21:33)
[2023-02-05] MEDS: LEVOTHYROXINE SODIUM 50 MCG TAB PO SCH (07:20)
[2023-02-05] MEDS: SEVELAMER 800 MG TAB PO SCH ×3 (09:30→17:36)
[2023-02-05] MEDS: B-COMPLEX W/ C & FOLIC ACID(NEPHROVITE TAB) PO SCH (09:30)
[2023-02-05] MEDS: amLODIPine BESYLATE 5 MG TAB PO SCH (09:30)
[2023-02-05] MEDS: PANTOPRAZOLE 40 MG TAB PO SCH (09:30)
[2023-02-05] MEDS: metroNIDAZOLE 500MG/100ML 100 ML IV SCH ×2 (16:10→21:31)
[2023-02-05] MEDS: VANCOMYCIN HCL 125MG/5ML ORAL SOL PO SCH ×2 (17:37→21:32)
[2023-02-06 05:00] VITALS: BP 144/70; PULSE 73; RESP 14; TEMP 98.4; O2SAT 100
[2023-02-06 05:58] LABS: Hematocrit 27.9 % (36.0-46.0)
[2023-02-06] MEDS: metroNIDAZOLE 500MG/100ML 100 ML IV SCH ×2 (06:14→14:16)
[2023-02-06] MEDS: LEVOTHYROXINE SODIUM 50 MCG TAB PO SCH (06:14)
[2023-02-06] MEDS: VANCOMYCIN HCL 125MG/5ML ORAL SOL PO SCH ×2 (06:15→11:42)
[2023-02-06] MEDS: SODIUM CHLOR 0.9% PF (SALINE LOCK) 10ML VIAL/SYR IV SCH ×2 (06:15→14:00)
[2023-02-06] MEDS ORDERED: SODIUM CHL 0.9% 1000 ML BAG XX ONE (07:00)
[2023-02-06 08:00] VITALS: BP 128/75; PULSE 69; PULSE 88; RESP 18; TEMP 97.5; O2SAT 100
[2023-02-06 09:00] VITALS: BP 141/58; PULSE 82; RESP 18; TEMP 98.3; O2SAT 97
[2023-02-06] MEDS ORDERED: MET500T PO (10:17)
[2023-02-06] MEDS ORDERED: VANC250PO PO (10:17)
[2023-02-06] MEDS: SEVELAMER 800 MG TAB PO SCH ×2 (11:42→12:56)
[2023-02-06] MEDS: PANTOPRAZOLE 40 MG TAB PO SCH (11:42)
[2023-02-06] MEDS: B-COMPLEX W/ C & FOLIC ACID(NEPHROVITE TAB) PO SCH (11:42)
[2023-02-06] MEDS: amLODIPine BESYLATE 5 MG TAB PO SCH (11:43)
[2023-02-06 13:00] VITALS: BP 128/75; PULSE 88; RESP 18; TEMP 97.5; O2SAT 100
[2023-02-06 13:10] VITALS: BP 128/75; PULSE 88; RESP 18; TEMP 97.5; O2SAT 100
[2023-02-06] MEDS ORDERED: EPOETIN ALFA-EPBX 10,000 UNIT/1ML VIAL SC ONE (21:00)
== END 2023-02-06 17:05 | disposition home or self-care (01) | DRG 248 ==
LOC: ER 20:14 → TELE 02-03 04:52 → TELE-EAST 02-03 17:35 → EAST 02-05 15:19
PROVIDERS: ADMIT Nurse Practitioner Family; ATTEND Family Medicine
PROC: 5A1D70Z Performance of Urinary Filtration, Intermittent, Less than 6 Hours Per Day (ICD-10-PCS; principal; 2023-02-04)
PROC: 5A1D70Z Performance of Urinary Filtration, Intermittent, Less than 6 Hours Per Day (ICD-10-PCS; 2023-02-06)
DX: A04.72 Enterocolitis due to Clostridium difficile, not specified as recurrent (principal); N18.6 End stage renal disease; E44.0 Moderate protein-calorie malnutrition; D63.1 Anemia in chronic kidney disease; Q61.2 Polycystic kidney, adult type; I15.1 Hypertension secondary to other renal disorders; K76.89 Other specified diseases of liver; K86.1 Other chronic pancreatitis; N28.89 Other specified disorders of kidney and ureter; E03.9 Hypothyroidism, unspecified; E78.5 Hyperlipidemia, unspecified; Z90.5 Acquired absence of kidney; Z99.2 Dependence on renal dialysis; Z82.49 Family history of ischemic heart disease and other diseases of the circulatory system; K21.9 Gastro-esophageal reflux disease without esophagitis; Z68.21 Body mass index [BMI] 21.0-21.9, adult
CPT/HCPCS: 36415; 74176; 80053; 80074; 81001; 82728; 83540; 83550; 83690; 84484; 85014; 85018; 85025; 85048; 86301; 87045; 87081; 87427; 87493; 90935; 96372; G0378; J2405; J3490; Q0162

== ENCOUNTER 2023-04-16 20:14 | Inpatient (IN) | payer MEDICAID ==
[~2023-04-16] VITALS: Ht 123.8 cm; Wt 56.4 kg
[~2023-04-16 20:14] MED LIST changes: -CEPH250C PO; -CIPR-173 PO; -HYDR-4902 PO; -LOVA10TA2 PO; +MET500T PO; -NITR-87 PO; +VANC250PO PO
[2023-04-16 20:15] VITALS: PULSE 148; RESP 20; O2SAT 100
[2023-04-16 20:21] VITALS: BP 147/77; PULSE 115; RESP 20; O2SAT 100
[2023-04-16] MEDS ORDERED: MIDAZOLAM DRIP 50 mg/50mL 50 ML IV ONE (20:25)
[2023-04-16] MEDS ORDERED: fentaNYL Drip 2500mCg/250mlNS 250 ML IV ONE (20:25)
[2023-04-16] MEDS: MAGNESIUM SULFATE 1GM/100ML 100 ML IV SCH ×2 (20:28→20:29)
[2023-04-16] MEDS: MIDAZOLAM DRIP 50 mg/50mL 50 ML IV SCH (20:30)
[2023-04-16] MEDS: fentaNYL Drip 2500mCg/250mlNS 250 ML IV SCH (20:30)
[2023-04-16] MEDS ORDERED: IPRATROPIUM BROM 0.5 MG/2.5ML INH SOL NEB ONE (20:40)
[2023-04-16] MEDS ORDERED: ALBUTEROL SULF 2.5 MG/0.5ML(0.5%) NEB SOLN NEB ONE (20:40)
[2023-04-16] MEDS ORDERED: SODIUM BICARBONATE 8.4 % INJ 50ML VIAL IV ONE (20:45)
[2023-04-16] MEDS ORDERED: CALCIUM CHL 100MG/ML 1,000 MG in D5W 5% 100 ML IV ONE (20:45)
[2023-04-16 21:08] LABS: Basophils # (auto) 0 10 ^3/uL (0-0.2); Eosinophils # (auto) 0 10 ^3/uL (0-0.8); Hemoglobin 8.2 g/dL (12.2-16.2); Monocytes # (auto) 0.4 10 ^3/uL (0-1.3); Neutrophils # (auto) 1.7 10 ^3/uL (1.6-8.6); Nucleated Red Blood Cells % 0.3 %; White Blood Cell 3.6 10^3/uL (4.4-10.8)
[2023-04-16 21:10] LABS: Basophils % (auto) 0.7 % (0.0-2.0); Eosinophils % (auto) 0.2 % (0.0-7.0); Hematocrit 27.6 % (36.0-46.0); Lymphocytes # (auto) 1.6 10 ^3/uL (0.4-5.4); Lymphocytes % (auto) 43.1 % (10.0-50.0); Mean Corpuscular Hemoglobin 27.6 pg (28.0-32.0); Mean Corpuscular Hgb Conc. 29.6 g/dL (32.0-36.0); Monocytes % (auto) 9.8 % (0.0-12.0); Neutrophils % (auto) 46.2 % (37.0-80.0); Red Blood Cells 2.97 10^6/uL (4.0-5.20); Red Cell Distribution Width 19.3 % (11.8-14.3)
[2023-04-16 21:22] LABS: INR 1.19 (0.9-1.15); Partial Thromboplastin Time 22.3 SEC (24.5-34.5); Prothrombin Time 12.4 sec (9.3-11.8)
[2023-04-16 21:24] LABS: Alanine Aminotransferase 135 U/L (7-40); Albumin 2.8 g/dL (3.2-4.8); Alkaline Phosphatase 138 U/L (46-116); Anion Gap 17 (5-15); Aspartate Aminotransferase 201 U/L (13-40); BUN/Creatinine Ratio 7.6 (10.0-20.0); Blood Alcohol < 3.0 mg/dL (<10); Blood Urea Nitrogen 23 mg/dL (9-23); Calcium 12.2 mg/dL (8.7-10.4); Carbon Dioxide 29 mmol/L (20-30); Chloride 100 mmol/L (98-107); Glucose 162 mg/dL (74-106); Lipase 37 U/L (12-53); Potassium 3.7 mmol/L (3.5-5.1); Sodium 146 mmol/L (136-145)
[2023-04-16 21:25] LABS: Bilirubin, Total 0.5 mg/dL (0.2-1.0); Total Protein 4.4 g/dL (5.7-8.2)
[2023-04-16 21:52] LABS: Base Excess 0.8 mmol/L (-2.0-2.0)
[2023-04-16 22:04] LABS: CRP High Sensitivity 3.98 mg/dL (<1.0)
[2023-04-16 22:07] VITALS: BP 121/83; PULSE 122; RESP 18; O2SAT 100
[2023-04-16 22:19] LABS: Erythrocyte Sedimentation Rate 12 mm/hr (0-20)
[2023-04-16 22:32] LABS: COVID19 ANTIGEN SOFIA FIA NEGATIVE (NEGATIVE)
[2023-04-16 22:41] LABS: Rapid Influenza B Negative (Negative)
[2023-04-16 22:44] LABS: Rapid Influenza A Positive (Negative)
[2023-04-16] MEDS ORDERED: NOREPINEPHRINE 8 MG/250ML KIT 250 ML IV ONE (23:07)
[2023-04-16] MEDS: NOREPINEPHRINE 8 MG/250ML KIT 250 ML IV SCH (23:15)
[2023-04-17] VITALS (55 sets, daily range): BP systolic 73–169; BP diastolic 21–102; PULSE 88–124; RESP 13–24; TEMP 97.5–101.7; O2SAT 92–100
[2023-04-17] MEDS ORDERED: DexAMETHasone SOD PHOS 10MG/1ML VIAL INJ IV ONE (02:30)
[2023-04-17] MEDS ORDERED: LACTATED RINGER'S 1,000 ML IV ONE (02:30)
[2023-04-17] MEDS ORDERED: PIPERACILLIN-TAZOB 3.375GM 100 ML IV ONE (02:45)
[2023-04-17] MEDS ORDERED: VANCOMYCIN 1GM/200ML 250 ML IV ONE (02:45)
[2023-04-17] MEDS ORDERED: VASOPRESSIN 20 UNIT/ML ONE (03:06)
[2023-04-17] MEDS ORDERED: VASOPRESSIN 20 UNITS in SODIUM CHL 0.9% 99 ML IV SCH (03:15)
[2023-04-17 03:32] LABS: Chloride 101 mmol/L (98-107); Potassium 4.2 mmol/L (3.5-5.1); Sodium 144 mmol/L (136-145)
[2023-04-17 03:34] LABS: Anion Gap 28 (5-15); Carbon Dioxide 15 mmol/L (20-30)
[2023-04-17 03:35] LABS: Calcium 8.6 mg/dL (8.7-10.4)
[2023-04-17 03:40] LABS: Alkaline Phosphatase 184 U/L (46-116); BUN/Creatinine Ratio 7.8 (10.0-20.0); Blood Urea Nitrogen 29 mg/dL (9-23)
[2023-04-17 03:41] LABS: Alanine Aminotransferase 389 U/L (7-40); Albumin 3.1 g/dL (3.2-4.8); Aspartate Aminotransferase 869 U/L (13-40)
[2023-04-17 03:42] LABS: Bilirubin, Total 1.1 mg/dL (0.2-1.0); Total Protein 5.1 g/dL (5.7-8.2)
[2023-04-17 03:44] LABS: Glucose 30 mg/dL (74-106)
[2023-04-17] MEDS ORDERED: DEXTROSE 50% SYRINGE 50 ML IV ONE (03:47)
[2023-04-17] MEDS: VASOPRESSIN 20 UNITS in SODIUM CHL 0.9% 99 ML IV SCH ×2 (03:50→13:37)
[2023-04-17] MEDS ORDERED: DEXTROSE 10% 1,000 ML IV ONE ×2 (04:00→08:45)
[2023-04-17] MEDS ORDERED: PHENYLEPHRINE IV 250 ML IV SCH (04:00)
[2023-04-17] MEDS ORDERED: DEXTROSE (50%) 50ML SYRG IV ONE ×2 (04:00→19:11)
[2023-04-17] MEDS: NOREPINEPHRINE 8 MG/250ML KIT 250 ML IV SCH (04:15)
[2023-04-17] MEDS ORDERED: ACETAMINOPHEN 325 MG TAB PO PRN (05:45)
[2023-04-17] MEDS ORDERED: NITROGLYCERIN 0.4 MG SL TAB SL PRN (05:45)
[2023-04-17] MEDS ORDERED: MORPHINE SULFATE INJ 2 MG/ml SYRG IV PRN (05:45)
[2023-04-17] MEDS ORDERED: ONDANSETRON HCL 4 MG/2 ML VIAL IV PRN (05:45)
[2023-04-17] MEDS ORDERED: ENOXAPARIN SOD 100 MG/1 ML SYRINGE SC ONE (06:00)
[2023-04-17] MEDS: MIDAZOLAM DRIP 50 mg/50mL 50 ML IV SCH ×2 (07:06→16:30)
[2023-04-17 07:25] LABS: Lactic Acid w/Reflex 15.1 mmol/L (0.4-2.0)
[2023-04-17] MEDS ORDERED: VANCOMYCIN PER PHARMACY 0 MG IV SCH (07:45)
[2023-04-17] MEDS ORDERED: DEXTROSE (50%) 50ML SYRG IV PRN (08:15)
[2023-04-17 08:57] LABS: Basophils # (auto) 0 10 ^3/uL (0-0.2); Basophils % (auto) 0.1 % (0.0-2.0); Eosinophils # (auto) 0 10 ^3/uL (0-0.8); Hematocrit 22.5 % (36.0-46.0); Lymphocytes # (auto) 0.8 10 ^3/uL (0.4-5.4); Mean Corpuscular Volume 90.5 fL (80.0-100.0); Red Blood Cells 2.48 10^6/uL (4.0-5.20)
[2023-04-17 09:00] LABS: Lymphocytes % (auto) 2.9 % (10.0-50.0); Mean Corpuscular Hemoglobin 27.6 pg (28.0-32.0); Mean Corpuscular Hgb Conc. 30.5 g/dL (32.0-36.0); Monocytes % (auto) 6.7 % (0.0-12.0); Neutrophils # (auto) 26.5 10 ^3/uL (1.6-8.6); Neutrophils % (auto) 90.3 % (37.0-80.0); Red Cell Distribution Width 18.5 % (11.8-14.3); White Blood Cell 29.3 10^3/uL (4.4-10.8)
[2023-04-17 09:03] LABS: Hemoglobin 6.9 g/dL (12.2-16.2)
[2023-04-17] MEDS ORDERED: ASPirin 81 mg TAB PO ONE (10:00)
[2023-04-17] MEDS: HYDROCORTISONE SOD SUCC 100 MG/2ML INJ VIAL IV SCH ×2 (11:50→22:11)
[2023-04-17] MEDS: OSELTAMIVIR 30 MG CAP PO SCH ×2 (12:00→22:12)
[2023-04-17] MEDS: PHENYLEPHRINE INJ 80 MG in SODIUM CHL 0.9% 242 ML IV SCH (12:06)
[2023-04-17] MEDS: NOREPINEPHRINE BITARTRATE 32 MG in SODIUM CHL 0.9% 218 ML IV SCH (13:15)
[2023-04-17] MEDS: ACCU-CHEK COMFORT CURVE STRIP VI SCH ×3 (13:30→22:12)
[2023-04-17] MEDS ORDERED: SODIUM BICARBONATE 8.4% INJ 50ML SYRINGE IV ONE (19:11)
[2023-04-17] MEDS ORDERED: MAGNESIUM SULF SDV 50% 4MEQ/ML-2 ML VIAL IV ONE (19:11)
[2023-04-17] MEDS ORDERED: CALCIUM CHLOR(10%) 100MG/ML 10ML SYRINGE IV ONE (19:11)
[2023-04-17] MEDS: fentaNYL Drip 2500mCg/250mlNS 250 ML IV SCH (20:30)
[2023-04-17] MEDS: cefTRIAXone 1GM/50ML D5W 50 ML IV SCH (22:11)
[2023-04-18] VITALS (109 sets, daily range): BP systolic 79–189; BP diastolic 43–106; PULSE 80–121; RESP 15–40; TEMP 95.9–100.4; O2SAT 92–100
[2023-04-18] MEDS: VASOPRESSIN 20 UNITS in SODIUM CHL 0.9% 99 ML IV SCH ×3 (00:44→22:58)
[2023-04-18] MEDS: MIDAZOLAM DRIP 50 mg/50mL 50 ML IV SCH ×3 (03:36→22:30)
[2023-04-18 04:27] LABS: Hemoglobin 10.1 g/dL (12.2-16.2)
[2023-04-18 04:29] LABS: Mean Corpuscular Hemoglobin 28.5 pg (28.0-32.0); Mean Corpuscular Hgb Conc. 32.5 g/dL (32.0-36.0); Mean Corpuscular Volume 87.7 fL (80.0-100.0); Red Blood Cells 3.54 10^6/uL (4.0-5.20); Red Cell Distribution Width 17.2 % (11.8-14.3)
[2023-04-18 04:47] LABS: Albumin 2.9 g/dL (3.2-4.8); Alkaline Phosphatase 172 U/L (46-116); Anion Gap 13 (5-15); BUN/Creatinine Ratio 10.7 (10.0-20.0); Bilirubin, Total 1.8 mg/dL (0.2-1.0); Calcium 7.6 mg/dL (8.7-10.4); Carbon Dioxide 24 mmol/L (20-30); Chloride 98 mmol/L (98-107); Glucose 106 mg/dL (74-106); Potassium 4.8 mmol/L (3.5-5.1)
[2023-04-18 04:48] LABS: Total Protein 5.1 g/dL (5.7-8.2)
[2023-04-18 04:59] LABS: Aspartate Aminotransferase 2857 U/L (13-40)
[2023-04-18 05:00] LABS: Alanine Aminotransferase 1351 U/L (7-40); Blood Urea Nitrogen 49 mg/dL (9-23); Sodium 135 mmol/L (136-145)
[2023-04-18 05:01] LABS: White Blood Cell 33.4 10^3/uL (4.4-10.8)
[2023-04-18 05:03] LABS: Basophils % (manual) 0 (0.0-2.0); Blast Cells 0; Eosinophils % (manual) 0 (0-7); Myelocytes % 0; Promyelocytes % 0; Reactive Lymphocytes 0
[2023-04-18] MEDS: ACCU-CHEK COMFORT CURVE STRIP VI SCH ×4 (06:29→22:07)
[2023-04-18 06:39] LABS: Band Neutrophils % (manual) 18; Lymphocytes % (manual) 4 (10.0-50.0); Metamyelocytes % 1; Monocytes % (manual) 4 (0-12); Platelet Estimate Decreased
[2023-04-18 06:40] LABS: Anisocytosis Slight
[2023-04-18] MEDS ORDERED: SODIUM CHL 0.9% 1000 ML BAG XX ONE (07:00)
[2023-04-18 08:22] LABS: Base Excess -2.5 mmol/L (-2.0-2.0)
[2023-04-18] MEDS: PHENYLEPHRINE INJ 80 MG in SODIUM CHL 0.9% 242 ML IV SCH ×2 (08:45→11:24)
[2023-04-18] MEDS: HYDROCORTISONE SOD SUCC 100 MG/2ML INJ VIAL IV SCH ×2 (15:14→22:07)
[2023-04-18] MEDS: ASPirin 81 mg TAB PO SCH (15:17)
[2023-04-18] MEDS: OSELTAMIVIR 30 MG CAP PO SCH ×2 (15:17→22:07)
[2023-04-18] MEDS ORDERED: DEXTROSE 10% 1,000 ML IV ONE (16:00)
[2023-04-18] MEDS ORDERED: VANCOMYCIN 1GM/200ML 250 ML IV ONE (18:00)
[2023-04-18] MEDS: NOREPINEPHRINE BITARTRATE 32 MG in SODIUM CHL 0.9% 218 ML IV SCH ×2 (18:24→22:56)
[2023-04-18] MEDS: fentaNYL Drip 2500mCg/250mlNS 250 ML IV SCH (20:30)
[2023-04-18] MEDS: cefTRIAXone 1GM/50ML D5W 50 ML IV SCH (20:54)
[2023-04-18] MEDS ORDERED: EPOETIN ALFA-EPBX 10,000 UNIT/1ML VIAL SC ONE (21:00)
[2023-04-19] VITALS (100 sets, daily range): BP systolic 86–209; BP diastolic 50–105; PULSE 71–118; RESP 14–32; TEMP 95.9–99.9; O2SAT 86–99
[2023-04-19 04:22] LABS: Albumin 2.8 g/dL (3.2-4.8); Alkaline Phosphatase 165 U/L (46-116); Anion Gap 14 (5-15); BUN/Creatinine Ratio 11.9 (10.0-20.0); Blood Urea Nitrogen 48 mg/dL (9-23); Calcium 8.5 mg/dL (8.7-10.4); Carbon Dioxide 25 mmol/L (20-30); Chloride 94 mmol/L (98-107); Glucose 136 mg/dL (74-106); Potassium 4.6 mmol/L (3.5-5.1); Sodium 133 mmol/L (136-145)
[2023-04-19 04:23] LABS: Bilirubin, Total 1.1 mg/dL (0.2-1.0); Total Protein 4.8 g/dL (5.7-8.2)
[2023-04-19 04:34] LABS: Aspartate Aminotransferase 3993 U/L (13-40)
[2023-04-19 04:35] LABS: Alanine Aminotransferase 2465 U/L (7-40)
[2023-04-19 04:38] LABS: Hematocrit 28.6 % (36.0-46.0); Hemoglobin 9.1 g/dL (12.2-16.2); Mean Corpuscular Hemoglobin 27.8 pg (28.0-32.0); Mean Corpuscular Hgb Conc. 31.8 g/dL (32.0-36.0); Mean Corpuscular Volume 87.3 fL (80.0-100.0); Red Blood Cells 3.28 10^6/uL (4.0-5.20); Red Cell Distribution Width 17.7 % (11.8-14.3); White Blood Cell 26.3 10^3/uL (4.4-10.8)
[2023-04-19 04:42] LABS: Basophils % (manual) 0 (0.0-2.0); Blast Cells 0; Eosinophils % (manual) 0 (0-7); Metamyelocytes % 0; Myelocytes % 0; Promyelocytes % 0; Reactive Lymphocytes 0
[2023-04-19 05:41] LABS: Band Neutrophils % (manual) 10; Lymphocytes % (manual) 6 (10.0-50.0); Monocytes % (manual) 3 (0-12)
[2023-04-19 05:42] LABS: Anisocytosis Slight; Platelet Estimate Decreased
[2023-04-19] MEDS: ACCU-CHEK COMFORT CURVE STRIP VI SCH ×6 (06:27→22:00)
[2023-04-19] MEDS: MIDAZOLAM DRIP 50 mg/50mL 50 ML IV SCH ×2 (08:30→17:16)
[2023-04-19 08:31] LABS: Base Excess 0.6 mmol/L (-2.0-2.0)
[2023-04-19] MEDS: VASOPRESSIN 20 UNITS in SODIUM CHL 0.9% 99 ML IV SCH ×2 (10:05→21:12)
[2023-04-19] MEDS ORDERED: DEXTROSE (50%) 50ML SYRG IV PRN (10:15)
[2023-04-19] MEDS: ASPirin 81 mg TAB PO SCH (11:05)
[2023-04-19] MEDS: OSELTAMIVIR 30 MG CAP PO SCH ×2 (11:05→21:45)
[2023-04-19] MEDS: InsuLIN REG 1unit/0.01ml Soln (100units/ml) SC SCH ×2 (11:07→17:15)
[2023-04-19] MEDS: HYDROCORTISONE SOD SUCC 100 MG/2ML INJ VIAL IV SCH ×2 (11:09→21:45)
[2023-04-19] MEDS: Nepro With Carb Steady 1 Liter Bottle GT SCH (17:13)
[2023-04-19] MEDS: cefTRIAXone 1GM/50ML D5W 50 ML IV SCH (21:45)
[2023-04-19] MEDS: fentaNYL Drip 2500mCg/250mlNS 250 ML IV SCH (22:07)
[2023-04-20] VITALS (105 sets, daily range): BP systolic 83–142; BP diastolic 36–74; PULSE 56–82; RESP 14–25; TEMP 96.1–98.1; O2SAT 96–100
[2023-04-20 03:49] LABS: Basophils # (auto) 0 10 ^3/uL (0-0.2); Basophils % (auto) 0.1 % (0.0-2.0); Eosinophils # (auto) 0 10 ^3/uL (0-0.8); Eosinophils % (auto) 0.1 % (0.0-7.0); Hematocrit 28.2 % (36.0-46.0); Hemoglobin 9.2 g/dL (12.2-16.2); Lymphocytes # (auto) 1.2 10 ^3/uL (0.4-5.4); Mean Corpuscular Hemoglobin 27.8 pg (28.0-32.0); Mean Corpuscular Hgb Conc. 32.6 g/dL (32.0-36.0); Mean Corpuscular Volume 85.3 fL (80.0-100.0); Monocytes % (auto) 4.2 % (0.0-12.0); Neutrophils # (auto) 22.1 10 ^3/uL (1.6-8.6); Neutrophils % (auto) 90.6 % (37.0-80.0); Nucleated Red Blood Cells % 0.3 %; Red Cell Distribution Width 17.7 % (11.8-14.3); White Blood Cell 24.4 10^3/uL (4.4-10.8)
[2023-04-20 03:58] LABS: Anion Gap 14 (5-15); Carbon Dioxide 23 mmol/L (20-30); Chloride 92 mmol/L (98-107); Potassium 5.4 mmol/L (3.5-5.1); Sodium 129 mmol/L (136-145)
[2023-04-20 04:00] LABS: Calcium 8.7 mg/dL (8.7-10.4)
[2023-04-20 04:04] LABS: BUN/Creatinine Ratio 12.1 (10.0-20.0); Glucose 124 mg/dL (74-106)
[2023-04-20 04:13] LABS: Blood Urea Nitrogen 64 mg/dL (9-23)
[2023-04-20] MEDS: MIDAZOLAM DRIP 50 mg/50mL 50 ML IV SCH ×2 (04:30→13:59)
[2023-04-20] MEDS: InsuLIN REG 1unit/0.01ml Soln (100units/ml) SC SCH ×5 (06:00→23:24)
[2023-04-20] MEDS: ACCU-CHEK COMFORT CURVE STRIP VI SCH ×7 (06:07→23:21)
[2023-04-20] MEDS: VASOPRESSIN 20 UNITS in SODIUM CHL 0.9% 99 ML IV SCH ×2 (06:46→21:29)
[2023-04-20 07:10] LABS: Base Excess -0.5 mmol/L (-2.0-2.0)
[2023-04-20] MEDS: PHENYLEPHRINE INJ 80 MG in SODIUM CHL 0.9% 242 ML IV SCH (07:46)
[2023-04-20] MEDS: NOREPINEPHRINE BITARTRATE 32 MG in SODIUM CHL 0.9% 218 ML IV SCH (07:46)
[2023-04-20] MEDS: HYDROCORTISONE SOD SUCC 100 MG/2ML INJ VIAL IV SCH ×2 (10:50→21:43)
[2023-04-20] MEDS: Nepro With Carb Steady 1 Liter Bottle GT SCH (10:51)
[2023-04-20] MEDS: OSELTAMIVIR 30 MG CAP PO SCH ×2 (10:51→21:44)
[2023-04-20] MEDS: ASPirin 81 mg TAB PO SCH (10:51)
[2023-04-20] MEDS ORDERED: SODIUM ZIRCONIUM CYCL 10 GM PAK ONE ×2 (16:33→21:35)
[2023-04-20] MEDS: SODIUM ZIRCONIUM CYCL 10 GM PAK PO SCH ×2 (16:37→21:43)
[2023-04-20] MEDS: fentaNYL Drip 2500mCg/250mlNS 250 ML IV SCH (20:30)
[2023-04-20] MEDS ORDERED: DOCUSATE ORAL LIQUID 100 MG/10 ML UD ONE (21:33)
[2023-04-20] MEDS: cefTRIAXone 1GM/50ML D5W 50 ML IV SCH (21:40)
[2023-04-20] MEDS: DOCUSATE ORAL LIQUID 100 MG/10 ML UD GT SCH (21:43)
[2023-04-21] VITALS (110 sets, daily range): BP systolic 85–192; BP diastolic 47–100; PULSE 58–94; RESP 13–25; TEMP 96.8–98.6; O2SAT 97–100
[2023-04-21] MEDS: MIDAZOLAM DRIP 50 mg/50mL 50 ML IV SCH ×3 (00:20→19:03)
[2023-04-21 04:21] LABS: Basophils # (auto) 0 10 ^3/uL (0-0.2); Basophils % (auto) 0.1 % (0.0-2.0); Eosinophils # (auto) 0 10 ^3/uL (0-0.8); Hematocrit 27.7 % (36.0-46.0); Hemoglobin 9.1 g/dL (12.2-16.2); Lymphocytes # (auto) 1.1 10 ^3/uL (0.4-5.4); Lymphocytes % (auto) 6.1 % (10.0-50.0); Mean Corpuscular Hemoglobin 28.9 pg (28.0-32.0); Mean Corpuscular Hgb Conc. 33.1 g/dL (32.0-36.0); Mean Corpuscular Volume 87.4 fL (80.0-100.0); Monocytes # (auto) 0.9 10 ^3/uL (0-1.3); Monocytes % (auto) 4.9 % (0.0-12.0); Neutrophils # (auto) 16.6 10 ^3/uL (1.6-8.6); Neutrophils % (auto) 88.9 % (37.0-80.0); Red Blood Cells 3.16 10^6/uL (4.0-5.20); Red Cell Distribution Width 17.7 % (11.8-14.3); White Blood Cell 18.7 10^3/uL (4.4-10.8)
[2023-04-21 04:33] LABS: Chloride 91 mmol/L (98-107); Potassium 4.9 mmol/L (3.5-5.1); Sodium 129 mmol/L (136-145)
[2023-04-21 04:34] LABS: Anion Gap 16 (5-15); Calcium 8.6 mg/dL (8.7-10.4); Carbon Dioxide 22 mmol/L (20-30)
[2023-04-21 04:39] LABS: BUN/Creatinine Ratio 13.1 (10.0-20.0); Glucose 139 mg/dL (74-106)
[2023-04-21 05:41] LABS: Blood Urea Nitrogen 81 mg/dL (9-23)
[2023-04-21] MEDS: SODIUM ZIRCONIUM CYCL 10 GM PAK PO SCH ×3 (05:44→21:14)
[2023-04-21] MEDS: ACCU-CHEK COMFORT CURVE STRIP VI SCH ×4 (05:44→23:21)
[2023-04-21] MEDS: InsuLIN REG 1unit/0.01ml Soln (100units/ml) SC SCH ×4 (05:52→23:21)
[2023-04-21] MEDS: VASOPRESSIN 20 UNITS in SODIUM CHL 0.9% 99 ML IV SCH ×2 (06:15→17:28)
[2023-04-21] MEDS: NOREPINEPHRINE BITARTRATE 32 MG in SODIUM CHL 0.9% 218 ML IV SCH (08:45)
[2023-04-21] MEDS: PHENYLEPHRINE INJ 80 MG in SODIUM CHL 0.9% 242 ML IV SCH (08:45)
[2023-04-21 09:16] LABS: Base Excess -2.8 mmol/L (-2.0-2.0)
[2023-04-21] MEDS: DOCUSATE ORAL LIQUID 100 MG/10 ML UD GT SCH ×2 (09:57→21:14)
[2023-04-21] MEDS: ASPirin 81 mg TAB PO SCH (10:48)
[2023-04-21] MEDS: HYDROCORTISONE SOD SUCC 100 MG/2ML INJ VIAL IV SCH ×2 (10:48→21:10)
[2023-04-21] MEDS: OSELTAMIVIR 30 MG CAP PO SCH ×2 (10:48→21:14)
[2023-04-21] MEDS ORDERED: ALBUMIN 25% 100 ML IV SCH (14:00)
[2023-04-21] MEDS: ALBUTEROL SULF 2.5 MG/0.5ML(0.5%) NEB SOLN NEB PRN (18:54)
[2023-04-21] MEDS: fentaNYL Drip 2500mCg/250mlNS 250 ML IV SCH (19:03)
[2023-04-21] MEDS: cefTRIAXone 1GM/50ML D5W 50 ML IV SCH (21:07)
[2023-04-22] VITALS (98 sets, daily range): BP systolic 85–142; BP diastolic 47–74; PULSE 67–119; RESP 13–27; TEMP 97–98.9; O2SAT 98–100
[2023-04-22 04:05] LABS: Mean Corpuscular Hgb Conc. 32.6 g/dL (32.0-36.0)
[2023-04-22 04:07] LABS: Hematocrit 21.3 % (36.0-46.0); Mean Corpuscular Hemoglobin 28.6 pg (28.0-32.0); Mean Corpuscular Volume 87.6 fL (80.0-100.0); Red Blood Cells 2.43 10^6/uL (4.0-5.20); Red Cell Distribution Width 17.3 % (11.8-14.3)
[2023-04-22 04:16] LABS: Alanine Aminotransferase 690 U/L (7-40); Albumin 3.5 g/dL (3.2-4.8); Alkaline Phosphatase 118 U/L (46-116); Anion Gap 13 (5-15); Aspartate Aminotransferase 369 U/L (13-40); BUN/Creatinine Ratio 14.5 (10.0-20.0); Calcium 9.1 mg/dL (8.7-10.4); Carbon Dioxide 27 mmol/L (20-30); Chloride 96 mmol/L (98-107); Glucose 124 mg/dL (74-106); Potassium 3.8 mmol/L (3.5-5.1); Sodium 136 mmol/L (136-145)
[2023-04-22 04:17] LABS: Bilirubin, Total 0.6 mg/dL (0.2-1.0); Total Protein 5.3 g/dL (5.7-8.2)
[2023-04-22 04:21] LABS: Blood Urea Nitrogen 69 mg/dL (9-23)
[2023-04-22 04:29] LABS: Hemoglobin 6.9 g/dL (12.2-16.2)
[2023-04-22 04:30] LABS: Basophils % (manual) 0 (0.0-2.0); Blast Cells 0; Eosinophils % (manual) 0 (0-7); Metamyelocytes % 0; Myelocytes % 0; Promyelocytes % 0; Reactive Lymphocytes 0
[2023-04-22] MEDS: VASOPRESSIN 20 UNITS in SODIUM CHL 0.9% 99 ML IV SCH ×2 (04:47→14:58)
[2023-04-22] MEDS: SODIUM ZIRCONIUM CYCL 10 GM PAK PO SCH (06:00)
[2023-04-22] MEDS: InsuLIN REG 1unit/0.01ml Soln (100units/ml) SC SCH ×4 (06:00→23:32)
[2023-04-22] MEDS: ACCU-CHEK COMFORT CURVE STRIP VI SCH ×4 (06:06→23:32)
[2023-04-22] MEDS: MIDAZOLAM DRIP 50 mg/50mL 50 ML IV SCH ×2 (06:06→16:30)
[2023-04-22 07:04] LABS: Anisocytosis Slight; Band Neutrophils % (manual) 2; Lymphocytes % (manual) 7 (10.0-50.0); Monocytes % (manual) 5 (0-12); Platelet Estimate Decreased
[2023-04-22 07:05] LABS: Large Platelets FEW
[2023-04-22] MEDS: NOREPINEPHRINE BITARTRATE 32 MG in SODIUM CHL 0.9% 218 ML IV SCH (07:51)
[2023-04-22] MEDS: PHENYLEPHRINE INJ 80 MG in SODIUM CHL 0.9% 242 ML IV SCH (08:30)
[2023-04-22 09:22] LABS: Base Excess -2.4 mmol/L (-2.0-2.0)
[2023-04-22] MEDS: DOCUSATE ORAL LIQUID 100 MG/10 ML UD GT SCH ×2 (09:56→22:04)
[2023-04-22] MEDS: ASPirin 81 mg TAB PO SCH (09:57)
[2023-04-22] MEDS ORDERED: PANTOPRAZOLE 40 MG/10 ML VIAL INJ IV SCH (10:00)
[2023-04-22] MEDS: SUCRALFATE 1 GM/10 ML ORAL SUSP GT SCH ×3 (10:55→22:04)
[2023-04-22] MEDS: ALBUTEROL SULF 2.5 MG/0.5ML(0.5%) NEB SOLN NEB PRN (20:27)
[2023-04-22] MEDS: fentaNYL Drip 2500mCg/250mlNS 250 ML IV SCH (20:30)
[2023-04-22] MEDS: cefTRIAXone 1GM/50ML D5W 50 ML IV SCH (22:04)
[2023-04-23] VITALS (123 sets, daily range): BP systolic 62–157; BP diastolic 34–77; PULSE 62–99; RESP 14–29; TEMP 96.6–98.4; O2SAT 82–100
[2023-04-23] MEDS: MIDAZOLAM DRIP 50 mg/50mL 50 ML IV SCH ×3 (02:30→22:30)
[2023-04-23] MEDS: VASOPRESSIN 20 UNITS in SODIUM CHL 0.9% 99 ML IV SCH ×2 (03:01→14:08)
[2023-04-23 04:29] LABS: Hematocrit 20.2 % (36.0-46.0)
[2023-04-23 04:31] LABS: Hemoglobin 6.5 g/dL (12.2-16.2)
[2023-04-23 04:57] LABS: Anion Gap 20 (5-15); Carbon Dioxide 21 mmol/L (20-30); Chloride 96 mmol/L (98-107); Potassium 4.3 mmol/L (3.5-5.1); Sodium 137 mmol/L (136-145)
[2023-04-23 05:03] LABS: BUN/Creatinine Ratio 20.8 (10.0-20.0); Glucose 115 mg/dL (74-106)
[2023-04-23 05:11] LABS: Blood Urea Nitrogen 121 mg/dL (9-23)
[2023-04-23] MEDS: ACCU-CHEK COMFORT CURVE STRIP VI SCH ×4 (05:51→23:29)
[2023-04-23] MEDS: InsuLIN REG 1unit/0.01ml Soln (100units/ml) SC SCH ×4 (05:51→23:29)
[2023-04-23] MEDS ORDERED: SODIUM CHL 0.9% 1000 ML BAG XX ONE ×2 (07:00→08:30)
[2023-04-23] MEDS: SUCRALFATE 1 GM/10 ML ORAL SUSP GT SCH ×4 (07:02→21:48)
[2023-04-23 07:08] LABS: Base Excess -4.6 mmol/L (-2.0-2.0)
[2023-04-23] MEDS: PHENYLEPHRINE INJ 80 MG in SODIUM CHL 0.9% 242 ML IV SCH (08:45)
[2023-04-23] MEDS: NOREPINEPHRINE BITARTRATE 32 MG in SODIUM CHL 0.9% 218 ML IV SCH (08:45)
[2023-04-23] MEDS: PANTOPRAZOLE 40 MG/10 ML VIAL INJ IV SCH ×2 (10:49→21:48)
[2023-04-23] MEDS: DOCUSATE ORAL LIQUID 100 MG/10 ML UD GT SCH ×2 (10:49→21:48)
[2023-04-23] MEDS: fentaNYL Drip 2500mCg/250mlNS 250 ML IV SCH (20:30)
[2023-04-23] MEDS: cefTRIAXone 1GM/50ML D5W 50 ML IV SCH (20:39)
[2023-04-23] MEDS ORDERED: EPOETIN ALFA-EPBX 10,000 UNIT/1ML VIAL SC ONE ×2 (21:00)
[2023-04-24] VITALS (105 sets, daily range): BP systolic 90–152; BP diastolic 45–76; PULSE 55–90; RESP 13–22; TEMP 96.3–98.6; O2SAT 92–100
[2023-04-24] MEDS: VASOPRESSIN 20 UNITS in SODIUM CHL 0.9% 99 ML IV SCH ×3 (01:15→23:29)
[2023-04-24 05:08] LABS: Hematocrit 31.2 % (36.0-46.0); Hemoglobin 10.4 g/dL (12.2-16.2); Mean Corpuscular Hgb Conc. 33.4 g/dL (32.0-36.0); Mean Corpuscular Volume 89.8 fL (80.0-100.0); Red Blood Cells 3.47 10^6/uL (4.0-5.20); Red Cell Distribution Width 15.5 % (11.8-14.3); White Blood Cell 21.2 10^3/uL (4.4-10.8)
[2023-04-24 05:25] LABS: Alanine Aminotransferase 398 U/L (7-40); Alkaline Phosphatase 105 U/L (46-116); Anion Gap 13 (5-15); Aspartate Aminotransferase 181 U/L (13-40); BUN/Creatinine Ratio 17.6 (10.0-20.0); Bilirubin, Total 0.9 mg/dL (0.2-1.0); Carbon Dioxide 27 mmol/L (20-30); Chloride 99 mmol/L (98-107); Glucose 114 mg/dL (74-106); Potassium 3.8 mmol/L (3.5-5.1); Sodium 139 mmol/L (136-145); Total Protein 4.6 g/dL (5.7-8.2)
[2023-04-24 05:34] LABS: Band Neutrophils % (manual) 0; Basophils % (manual) 0 (0.0-2.0); Blast Cells 0; Eosinophils % (manual) 0 (0-7); Metamyelocytes % 0; Promyelocytes % 0; Reactive Lymphocytes 0
[2023-04-24 05:38] LABS: Blood Urea Nitrogen 75 mg/dL (9-23)
[2023-04-24] MEDS: InsuLIN REG 1unit/0.01ml Soln (100units/ml) SC SCH ×4 (05:44→23:39)
[2023-04-24] MEDS: ACCU-CHEK COMFORT CURVE STRIP VI SCH ×4 (05:45→23:37)
[2023-04-24] MEDS: SUCRALFATE 1 GM/10 ML ORAL SUSP GT SCH ×4 (06:48→21:13)
[2023-04-24 08:02] LABS: Base Excess 1.4 mmol/L (-2.0-2.0)
[2023-04-24] MEDS: MIDAZOLAM DRIP 50 mg/50mL 50 ML IV SCH ×2 (08:30→18:30)
[2023-04-24] MEDS: PHENYLEPHRINE INJ 80 MG in SODIUM CHL 0.9% 242 ML IV SCH (08:45)
[2023-04-24] MEDS: NOREPINEPHRINE BITARTRATE 32 MG in SODIUM CHL 0.9% 218 ML IV SCH (08:45)
[2023-04-24 09:02] LABS: Lymphocytes % (manual) 11 (10.0-50.0); Monocytes % (manual) 9 (0-12); Myelocytes % 3; Platelet Estimate Decreased
[2023-04-24] MEDS: MEROPENEM 500MG IVPB 50 ML IV SCH (09:46)
[2023-04-24] MEDS: DOCUSATE ORAL LIQUID 100 MG/10 ML UD GT SCH ×2 (10:00→21:13)
[2023-04-24] MEDS: PANTOPRAZOLE 40 MG/10 ML VIAL INJ IV SCH ×2 (10:06→21:13)
[2023-04-24] MEDS: Nepro With Carb Steady 1 Liter Bottle GT SCH (16:29)
[2023-04-24] MEDS: fentaNYL Drip 2500mCg/250mlNS 250 ML IV SCH (20:22)
[2023-04-25] VITALS (112 sets, daily range): BP systolic 86–157; BP diastolic 45–78; PULSE 49–86; RESP 13–35; TEMP 96.3–98.6; O2SAT 89–100
[2023-04-25 03:52] LABS: Hematocrit 32.3 % (36.0-46.0); Hemoglobin 10.9 g/dL (12.2-16.2); Mean Corpuscular Hemoglobin 31.4 pg (28.0-32.0); Mean Corpuscular Hgb Conc. 33.8 g/dL (32.0-36.0); Mean Corpuscular Volume 92.9 fL (80.0-100.0); Red Blood Cells 3.47 10^6/uL (4.0-5.20); White Blood Cell 15.1 10^3/uL (4.4-10.8)
[2023-04-25 04:00] LABS: Alanine Aminotransferase 322 U/L (7-40); Alkaline Phosphatase 132 U/L (46-116); Anion Gap 14 (5-15); Aspartate Aminotransferase 121 U/L (13-40); BUN/Creatinine Ratio 16.9 (10.0-20.0); Bilirubin, Total 0.7 mg/dL (0.2-1.0); Calcium 8.7 mg/dL (8.7-10.4); Carbon Dioxide 25 mmol/L (20-30); Chloride 100 mmol/L (98-107); Glucose 135 mg/dL (74-106); Potassium 3.7 mmol/L (3.5-5.1); Sodium 139 mmol/L (136-145); Total Protein 4.8 g/dL (5.7-8.2)
[2023-04-25 04:12] LABS: Basophils % (manual) 0 (0.0-2.0); Blast Cells 0; Eosinophils % (manual) 0 (0-7); Metamyelocytes % 0; Promyelocytes % 0; Reactive Lymphocytes 0
[2023-04-25 04:26] LABS: Blood Urea Nitrogen 87 mg/dL (9-23)
[2023-04-25] MEDS: MIDAZOLAM DRIP 50 mg/50mL 50 ML IV SCH ×2 (04:30→14:30)
[2023-04-25] MEDS: ACCU-CHEK COMFORT CURVE STRIP VI SCH ×4 (05:23→23:31)
[2023-04-25] MEDS: InsuLIN REG 1unit/0.01ml Soln (100units/ml) SC SCH ×4 (05:25→23:31)
[2023-04-25] MEDS: SUCRALFATE 1 GM/10 ML ORAL SUSP GT SCH ×4 (05:28→21:10)
[2023-04-25 06:58] LABS: Band Neutrophils % (manual) 8; Lymphocytes % (manual) 3 (10.0-50.0); Monocytes % (manual) 5 (0-12); Myelocytes % 2
[2023-04-25 06:59] LABS: Platelet Estimate Decreased
[2023-04-25 07:03] LABS: Base Excess -2.1 mmol/L (-2.0-2.0)
[2023-04-25] MEDS: PHENYLEPHRINE INJ 80 MG in SODIUM CHL 0.9% 242 ML IV SCH (08:45)
[2023-04-25] MEDS: NOREPINEPHRINE BITARTRATE 32 MG in SODIUM CHL 0.9% 218 ML IV SCH (08:45)
[2023-04-25] MEDS ORDERED: DOCUSATE ORAL LIQUID 100 MG/10 ML UD GT PRN (09:15)
[2023-04-25] MEDS ORDERED: Nepro With Carb Steady 1 Liter Bottle GT SCH (09:15)
[2023-04-25] MEDS ORDERED: ALBUMIN 25% 100 ML IV ONE ×2 (09:40→09:45)
[2023-04-25] MEDS: VASOPRESSIN 20 UNITS in SODIUM CHL 0.9% 99 ML IV SCH ×2 (10:45→21:04)
[2023-04-25] MEDS: PANTOPRAZOLE 40 MG/10 ML VIAL INJ IV SCH ×2 (12:56→21:10)
[2023-04-25] MEDS: MEROPENEM 500MG IVPB 50 ML IV SCH (12:57)
[2023-04-25] MEDS: fentaNYL Drip 2500mCg/250mlNS 250 ML IV SCH (20:30)
[2023-04-26] VITALS (110 sets, daily range): BP systolic 97–183; BP diastolic 34–86; PULSE 65–93; RESP 12–32; TEMP 98.2–99; O2SAT 98–100
[2023-04-26] MEDS: MIDAZOLAM DRIP 50 mg/50mL 50 ML IV SCH ×3 (00:30→20:06)
[2023-04-26 04:14] LABS: Hemoglobin 9.9 g/dL (12.2-16.2); White Blood Cell 12.4 10^3/uL (4.4-10.8)
[2023-04-26 04:16] LABS: Hematocrit 29.3 % (36.0-46.0); Mean Corpuscular Hemoglobin 31.7 pg (28.0-32.0); Mean Corpuscular Hgb Conc. 33.8 g/dL (32.0-36.0); Mean Corpuscular Volume 93.7 fL (80.0-100.0); Red Blood Cells 3.13 10^6/uL (4.0-5.20)
[2023-04-26 04:25] LABS: Chloride 102 mmol/L (98-107); Potassium 3.4 mmol/L (3.5-5.1); Sodium 142 mmol/L (136-145)
[2023-04-26 04:26] LABS: Anion Gap 12 (5-15); Calcium 8.8 mg/dL (8.7-10.4); Carbon Dioxide 28 mmol/L (20-30)
[2023-04-26 04:31] LABS: BUN/Creatinine Ratio 16.5 (10.0-20.0); Glucose 124 mg/dL (74-106)
[2023-04-26 04:33] LABS: Blood Urea Nitrogen 69 mg/dL (9-23)
[2023-04-26 04:36] LABS: Basophils % (manual) 0 (0.0-2.0); Blast Cells 0; Eosinophils % (manual) 0 (0-7); Metamyelocytes % 0; Myelocytes % 0; Promyelocytes % 0; Reactive Lymphocytes 0
[2023-04-26 05:06] LABS: Band Neutrophils % (manual) 1; Lymphocytes % (manual) 8 (10.0-50.0); Monocytes % (manual) 2 (0-12)
[2023-04-26 05:07] LABS: Platelet Estimate Decreased
[2023-04-26] MEDS: SUCRALFATE 1 GM/10 ML ORAL SUSP GT SCH ×4 (05:30→21:18)
[2023-04-26] MEDS: InsuLIN REG 1unit/0.01ml Soln (100units/ml) SC SCH ×4 (05:30→23:30)
[2023-04-26] MEDS: ACCU-CHEK COMFORT CURVE STRIP VI SCH ×4 (05:30→23:30)
[2023-04-26] MEDS: NOREPINEPHRINE BITARTRATE 32 MG in SODIUM CHL 0.9% 218 ML IV SCH (08:45)
[2023-04-26] MEDS: PANTOPRAZOLE 40 MG/10 ML VIAL INJ IV SCH ×2 (09:50→21:18)
[2023-04-26] MEDS: MEROPENEM 500MG IVPB 50 ML IV SCH (09:51)
[2023-04-26] MEDS: POTASSIUM CHL 20MEQ/100ML 100 ML IV SCH ×2 (15:23→17:17)
[2023-04-26] MEDS: fentaNYL Drip 2500mCg/250mlNS 250 ML IV SCH (20:06)
[2023-04-27] VITALS (107 sets, daily range): BP systolic 70–172; BP diastolic 39–89; PULSE 79–103; RESP 13–35; TEMP 98.1–98.9; O2SAT 91–100
[2023-04-27 04:30] LABS: Basophils # (auto) 0 10 ^3/uL (0-0.2); Basophils % (auto) 0.2 % (0.0-2.0); Eosinophils # (auto) 0.1 10 ^3/uL (0-0.8); Eosinophils % (auto) 0.9 % (0.0-7.0); Hematocrit 31.7 % (36.0-46.0); Hemoglobin 10.4 g/dL (12.2-16.2); Lymphocytes # (auto) 0.8 10 ^3/uL (0.4-5.4); Lymphocytes % (auto) 5.4 % (10.0-50.0); Mean Corpuscular Hemoglobin 31.2 pg (28.0-32.0); Mean Corpuscular Hgb Conc. 32.8 g/dL (32.0-36.0); Mean Corpuscular Volume 95.1 fL (80.0-100.0); Monocytes # (auto) 0.8 10 ^3/uL (0-1.3); Monocytes % (auto) 5.3 % (0.0-12.0); Neutrophils # (auto) 12.8 10 ^3/uL (1.6-8.6); Neutrophils % (auto) 88.2 % (37.0-80.0); Nucleated Red Blood Cells % 0.6 %; Red Blood Cells 3.34 10^6/uL (4.0-5.20); Red Cell Distribution Width 16.3 % (11.8-14.3); White Blood Cell 14.5 10^3/uL (4.4-10.8)
[2023-04-27 04:41] LABS: Anion Gap 13 (5-15); Calcium 8.9 mg/dL (8.7-10.4); Carbon Dioxide 26 mmol/L (20-30); Chloride 102 mmol/L (98-107); Potassium 4.3 mmol/L (3.5-5.1); Sodium 141 mmol/L (136-145)
[2023-04-27 04:45] LABS: Glucose 116 mg/dL (74-106)
[2023-04-27 04:47] LABS: BUN/Creatinine Ratio 16.5 (10.0-20.0)
[2023-04-27 05:02] LABS: Blood Urea Nitrogen 85 mg/dL (9-23)
[2023-04-27] MEDS: InsuLIN REG 1unit/0.01ml Soln (100units/ml) SC SCH ×4 (05:46→23:35)
[2023-04-27] MEDS: MIDAZOLAM DRIP 50 mg/50mL 50 ML IV SCH ×2 (05:46→16:30)
[2023-04-27] MEDS: SUCRALFATE 1 GM/10 ML ORAL SUSP GT SCH ×4 (05:46→21:56)
[2023-04-27] MEDS: ACCU-CHEK COMFORT CURVE STRIP VI SCH ×4 (05:46→23:34)
[2023-04-27] MEDS: ALBUTEROL SULF 2.5 MG/0.5ML(0.5%) NEB SOLN NEB PRN ×3 (06:23→18:45)
[2023-04-27] MEDS ORDERED: SODIUM CHL 0.9% 1000 ML BAG XX ONE (07:00)
[2023-04-27 07:10] LABS: Base Excess 0.8 mmol/L (-2.0-2.0)
[2023-04-27] MEDS: NOREPINEPHRINE BITARTRATE 32 MG in SODIUM CHL 0.9% 218 ML IV SCH (08:45)
[2023-04-27] MEDS: MEROPENEM 500MG IVPB 50 ML IV SCH (11:25)
[2023-04-27] MEDS: PANTOPRAZOLE 40 MG/10 ML VIAL INJ IV SCH ×2 (11:25→21:56)
[2023-04-27] MEDS: fentaNYL Drip 2500mCg/250mlNS 250 ML IV SCH (20:30)
[2023-04-27] MEDS ORDERED: EPOETIN ALFA-EPBX 10,000 UNIT/1ML VIAL SC ONE (21:00)
[2023-04-28] VITALS (62 sets, daily range): BP systolic 92–149; BP diastolic 49–84; PULSE 80–104; RESP 13–20; TEMP 98–99.4; O2SAT 98–100
[2023-04-28] MEDS: ALBUTEROL SULF 2.5 MG/0.5ML(0.5%) NEB SOLN NEB PRN (00:15)
[2023-04-28] MEDS: MIDAZOLAM DRIP 50 mg/50mL 50 ML IV SCH ×3 (01:19→21:14)
[2023-04-28 05:26] LABS: Chloride 103 mmol/L (98-107); Potassium 4.6 mmol/L (3.5-5.1); Sodium 142 mmol/L (136-145)
[2023-04-28 05:27] LABS: Anion Gap 11 (5-15); Calcium 8.9 mg/dL (8.7-10.4); Carbon Dioxide 28 mmol/L (20-30)
[2023-04-28 05:29] LABS: Basophils # (auto) 0.1 10 ^3/uL (0-0.2); Basophils % (auto) 0.3 % (0.0-2.0); Eosinophils # (auto) 0.1 10 ^3/uL (0-0.8); Eosinophils % (auto) 0.8 % (0.0-7.0); Hematocrit 31.5 % (36.0-46.0); Hemoglobin 10.2 g/dL (12.2-16.2); Lymphocytes # (auto) 0.9 10 ^3/uL (0.4-5.4); Lymphocytes % (auto) 5.5 % (10.0-50.0); Mean Corpuscular Hemoglobin 30.9 pg (28.0-32.0); Mean Corpuscular Hgb Conc. 32.4 g/dL (32.0-36.0); Mean Corpuscular Volume 95.3 fL (80.0-100.0); Monocytes # (auto) 0.9 10 ^3/uL (0-1.3); Monocytes % (auto) 5.9 % (0.0-12.0); Neutrophils # (auto) 13.8 10 ^3/uL (1.6-8.6); Neutrophils % (auto) 87.5 % (37.0-80.0); Nucleated Red Blood Cells % 0.2 %; Red Blood Cells 3.31 10^6/uL (4.0-5.20); White Blood Cell 15.8 10^3/uL (4.4-10.8)
[2023-04-28 05:32] LABS: BUN/Creatinine Ratio 15.5 (10.0-20.0); Glucose 129 mg/dL (74-106)
[2023-04-28 05:33] LABS: Blood Urea Nitrogen 72 mg/dL (9-23)
[2023-04-28] MEDS: InsuLIN REG 1unit/0.01ml Soln (100units/ml) SC SCH ×3 (06:00→17:22)
[2023-04-28] MEDS: ACCU-CHEK COMFORT CURVE STRIP VI SCH ×3 (06:03→17:22)
[2023-04-28] MEDS: SUCRALFATE 1 GM/10 ML ORAL SUSP GT SCH ×4 (06:03→22:00)
[2023-04-28] MEDS: NOREPINEPHRINE BITARTRATE 32 MG in SODIUM CHL 0.9% 218 ML IV SCH (08:45)
[2023-04-28] MEDS: PANTOPRAZOLE 40 MG/10 ML VIAL INJ IV SCH ×2 (09:12→21:27)
[2023-04-28] MEDS: MEROPENEM 500MG IVPB 50 ML IV SCH (09:12)
[2023-04-28] MEDS: fentaNYL Drip 2500mCg/250mlNS 250 ML IV SCH (19:10)
[2023-04-29] VITALS (66 sets, daily range): BP systolic 90–151; BP diastolic 46–78; PULSE 68–94; RESP 13–18; TEMP 97.9–98.9; O2SAT 99–100
[2023-04-29] MEDS: ACCU-CHEK COMFORT CURVE STRIP VI SCH ×5 (00:15→22:52)
[2023-04-29 04:31] LABS: Alanine Aminotransferase 106 U/L (7-40); Albumin 3.1 g/dL (3.2-4.8); Alkaline Phosphatase 124 U/L (46-116); Anion Gap 13 (5-15); Aspartate Aminotransferase 68 U/L (13-40); BUN/Creatinine Ratio 14.3 (10.0-20.0); Blood Urea Nitrogen 79 mg/dL (9-23); Calcium 8.7 mg/dL (8.7-10.4); Carbon Dioxide 25 mmol/L (20-30); Chloride 103 mmol/L (98-107); Glucose 101 mg/dL (74-106); Potassium 5.1 mmol/L (3.5-5.1); Sodium 141 mmol/L (136-145)
[2023-04-29 04:32] LABS: Bilirubin, Total 1.2 mg/dL (0.2-1.0); Total Protein 4.9 g/dL (5.7-8.2)
[2023-04-29] MEDS: InsuLIN REG 1unit/0.01ml Soln (100units/ml) SC SCH ×5 (06:00→22:56)
[2023-04-29] MEDS: SUCRALFATE 1 GM/10 ML ORAL SUSP GT SCH ×4 (06:06→22:52)
[2023-04-29 07:15] LABS: Base Excess 1.8 mmol/L (-2.0-2.0)
[2023-04-29] MEDS: MIDAZOLAM DRIP 50 mg/50mL 50 ML IV SCH ×2 (08:22→11:03)
[2023-04-29] MEDS: NOREPINEPHRINE BITARTRATE 32 MG in SODIUM CHL 0.9% 218 ML IV SCH (08:22)
[2023-04-29] MEDS: PANTOPRAZOLE 40 MG/10 ML VIAL INJ IV SCH ×2 (08:22→22:52)
[2023-04-29] MEDS: MEROPENEM 500MG IVPB 50 ML IV SCH (08:22)
[2023-04-29 09:49] LABS: Hepatitis B Core Total AB Negative (Negative)
[2023-04-29] MEDS: fentaNYL Drip 2500mCg/250mlNS 250 ML IV SCH (11:03)
[2023-04-29 12:18] LABS: Hepatitis B Surface Antibody Positive (Negative); Hepatitis C Antibody Negative (Negative)
[2023-04-29 12:19] LABS: Hepatitis A Total Antibody Positive (Negative)
[2023-04-29 12:20] LABS: Hepatitis B Surface Antigen Negative (Negative)
[2023-04-30] VITALS (50 sets, daily range): BP systolic 87–148; BP diastolic 46–93; PULSE 29–110; RESP 10–23; TEMP 97–98.7; O2SAT 6–100
[2023-04-30] MEDS: MIDAZOLAM DRIP 50 mg/50mL 50 ML IV SCH ×2 (01:13→07:11)
[2023-04-30 04:08] LABS: Basophils # (auto) 0.1 10 ^3/uL (0-0.2); Basophils % (auto) 0.5 % (0.0-2.0); Eosinophils # (auto) 0.1 10 ^3/uL (0-0.8); Hematocrit 31.1 % (36.0-46.0); Lymphocytes # (auto) 0.6 10 ^3/uL (0.4-5.4); Lymphocytes % (auto) 5.5 % (10.0-50.0); Mean Corpuscular Hemoglobin 30.8 pg (28.0-32.0); Mean Corpuscular Hgb Conc. 32.3 g/dL (32.0-36.0); Mean Corpuscular Volume 95.5 fL (80.0-100.0); Monocytes # (auto) 0.8 10 ^3/uL (0-1.3); Monocytes % (auto) 7.1 % (0.0-12.0); Neutrophils # (auto) 9.9 10 ^3/uL (1.6-8.6); Neutrophils % (auto) 85.9 % (37.0-80.0); Nucleated Red Blood Cells % 0.1 %; Red Blood Cells 3.26 10^6/uL (4.0-5.20); Red Cell Distribution Width 16.9 % (11.8-14.3); White Blood Cell 11.5 10^3/uL (4.4-10.8)
[2023-04-30 04:26] LABS: Alanine Aminotransferase 87 U/L (7-40); Alkaline Phosphatase 121 U/L (46-116); Anion Gap 13 (5-15); Aspartate Aminotransferase 63 U/L (13-40); BUN/Creatinine Ratio 15.4 (10.0-20.0); Calcium 8.8 mg/dL (8.7-10.4); Carbon Dioxide 24 mmol/L (20-30); Chloride 103 mmol/L (98-107); Glucose 107 mg/dL (74-106); Potassium 5.2 mmol/L (3.5-5.1); Sodium 140 mmol/L (136-145)
[2023-04-30 04:27] LABS: Bilirubin, Total 1.1 mg/dL (0.2-1.0)
[2023-04-30 04:44] LABS: Blood Urea Nitrogen 98 mg/dL (9-23)
[2023-04-30] MEDS: SUCRALFATE 1 GM/10 ML ORAL SUSP GT SCH ×3 (05:53→17:00)
[2023-04-30] MEDS: InsuLIN REG 1unit/0.01ml Soln (100units/ml) SC SCH ×2 (05:53→10:47)
[2023-04-30] MEDS: ACCU-CHEK COMFORT CURVE STRIP VI SCH ×3 (05:53→18:00)
[2023-04-30 06:47] LABS: Base Excess 0.5 mmol/L (-2.0-2.0)
[2023-04-30] MEDS ORDERED: SODIUM CHL 0.9% 1000 ML BAG XX ONE (07:00)
[2023-04-30] MEDS: fentaNYL Drip 2500mCg/250mlNS 250 ML IV SCH (07:11)
[2023-04-30] MEDS: PANTOPRAZOLE 40 MG/10 ML VIAL INJ IV SCH (07:29)
[2023-04-30] MEDS: NOREPINEPHRINE BITARTRATE 32 MG in SODIUM CHL 0.9% 218 ML IV SCH (08:45)
[2023-04-30] MEDS ORDERED: ALBUMIN 25% 100 ML IV PRN (10:45)
[2023-04-30] MEDS: MEROPENEM 500MG IVPB 50 ML IV SCH (10:58)
[2023-04-30] MEDS ORDERED: LORazepam 2MG/ML-1ML VIAL IV PRN (18:15)
[2023-04-30] MEDS ORDERED: MORPHINE SULFATE INJ 2 MG/ml SYRG IV PRN (18:15)
[2023-04-30] MEDS ORDERED: EPOETIN ALFA-EPBX 4,000 UNIT/ML VIAL SC ONE (21:00)
== END 2023-04-30 20:20 | DRG 720 ==
LOC: ER 20:14 → EDBD 20:17 → TELE 04-17 05:41 → ICU WEST 04-17 14:57
PROVIDERS: ADMIT Nurse Practitioner; ATTEND Nurse Practitioner Acute Care
PROC: 5A1955Z Respiratory Ventilation, Greater than 96 Consecutive Hours (ICD-10-PCS; principal; 2023-04-16)
PROC: 0BH17EZ Insertion of Endotracheal Airway into Trachea, Via Natural or Artificial Opening (ICD-10-PCS; 2023-04-16)
PROC: 30233N1 Transfusion of Nonautologous Red Blood Cells into Peripheral Vein, Percutaneous Approach (ICD-10-PCS; 2023-04-17)
PROC: 5A1D70Z Performance of Urinary Filtration, Intermittent, Less than 6 Hours Per Day (ICD-10-PCS; 2023-04-18)
PROC: 5A1D70Z Performance of Urinary Filtration, Intermittent, Less than 6 Hours Per Day (ICD-10-PCS; 2023-04-20)
PROC: 5A1D70Z Performance of Urinary Filtration, Intermittent, Less than 6 Hours Per Day (ICD-10-PCS; 2023-04-21)
PROC: 5A1D70Z Performance of Urinary Filtration, Intermittent, Less than 6 Hours Per Day (ICD-10-PCS; 2023-04-23)
PROC: 5A1D70Z Performance of Urinary Filtration, Intermittent, Less than 6 Hours Per Day (ICD-10-PCS; 2023-04-25)
PROC: 5A1D70Z Performance of Urinary Filtration, Intermittent, Less than 6 Hours Per Day (ICD-10-PCS; 2023-04-27)
DX: A41.9 Sepsis, unspecified organism (principal); I46.9 Cardiac arrest, cause unspecified; J96.01 Acute respiratory failure with hypoxia; R65.21 Severe sepsis with septic shock; G92.8 Other toxic encephalopathy; I21.4 Non-ST elevation (NSTEMI) myocardial infarction; I50.21 Acute systolic (congestive) heart failure; N18.6 End stage renal disease; R18.8 Other ascites; K92.2 Gastrointestinal hemorrhage, unspecified; S22.41XA Multiple fractures of ribs, right side, initial encounter for closed fracture; Z20.822 Contact with and (suspected) exposure to COVID-19; I47.21 Torsades de pointes; E11.649 Type 2 diabetes mellitus with hypoglycemia without coma; G93.1 Anoxic brain damage, not elsewhere classified; J10.1 Influenza due to other identified influenza virus with other respiratory manifestations; D64.9 Anemia, unspecified; E11.22 Type 2 diabetes mellitus with diabetic chronic kidney disease; E87.1 Hypo-osmolality and hyponatremia; E87.20 Acidosis, unspecified; I48.0 Paroxysmal atrial fibrillation; E03.9 Hypothyroidism, unspecified; E78.5 Hyperlipidemia, unspecified; J93.9 Pneumothorax, unspecified; W18.39XA Other fall on same level, initial encounter; I13.2 Hypertensive heart and chronic kidney disease with heart failure and with stage 5 chronic kidney disease, or end stage renal disease; I49.01 Ventricular fibrillation; K86.1 Other chronic pancreatitis; Z99.2 Dependence on renal dialysis; Z79.82 Long term (current) use of aspirin; Z82.49 Family history of ischemic heart disease and other diseases of the circulatory system; Y93.89 Activity, other specified; Y92.89 Other specified places as the place of occurrence of the external cause; Y99.8 Other external cause status
CPT/HCPCS: 36415; 36556; 36600; 70450; 70551; 71045; 71250; 72125; 74176; 80048; 80053; 80202; 80320; 82010; 82306; 82805; 82962; 83605; 83690; 83735; 83880; 83930; 83970; 84100; 84443; 84484; 85007; 85014; 85018; 85025; 85027; 85379; 85610; 85652; 85730; 86141; 86301; 86704; 86706; 86708; 86803; 86850; 86900; 86901; 86920; 87040; 87070; 87077; 87081; 87186; 87205; 87340; 87426; 87804; 90935; 93005; 93306; 94002; 94003; 94640; 95819; 96365; 96367; 96368; 96375; 99291; C9113; G0378; G9035; J1100; J1642; J1815; J2185; J2250; J2543; J3480; J7060; P9047